=== PATIENT | female | born 1935 | race Caucasian/White ===

== ENCOUNTER 2016-06-26 15:50 | Inpatient (IN) | payer MEDICARE, BC ==
[2016-06-26] MEDS ORDERED: Dextrose 50% Abboject 50 ML SYRINGE SLOW IVP PRN (19:13)
[2016-06-26] MEDS ORDERED: Dextrose 5% in Water 1,000 ML IV PRN (19:13)
[2016-06-26] MEDS: Docusate (Surfak) 240 MG CAP PO SCH (20:16)
[2016-06-26] MEDS: Lisinopril 20 MG TAB PO SCH (20:17)
[2016-06-26] MEDS: Oxybutynin Chloride 5 MG TAB PO SCH (20:17)
[2016-06-26] MEDS: Gabapentin 300 MG CAP PO SCH (20:18)
[2016-06-26] MEDS: Famotidine 20 MG TAB PO SCH (20:18)
[2016-06-26] MEDS: Pravastatin Sodium 20 MG TAB PO SCH (20:18)
[2016-06-26] MEDS: HYDROcodone/Acetaminophen 10/325 mg Tablet PO PRN (20:21)
[2016-06-26] MEDS: Levemir Flexpen 100 UNITS/ML PEN SC SCH (20:22)
[2016-06-27] MEDS: Enoxaparin Sodium 30 MG/0.3 ML SYRINGE SC SCH (05:29)
[2016-06-27 05:46] LABS: Anion Gap 13 mmol/L (10-20); BUN (Urea Nitrogen) 13 mg/dL (9.8-20.1); Calc. Creatinine Clearance 99 mL/min (70-130); Calcium 9.4 mg/dL (7.8-10.44); Carbon Dioxide 31 mmol/L (23-31); Chloride 101 mmol/L (98-107); Estimated GFR-MDRD 72
[2016-06-27 06:39] LABS: Hematocrit 28.3 % (36.0-47.0); Mean Platelet Volume 6.2 fL (7.4-10.4); Red Blood Cell (RBC) Count 3.15 mill/uL (4.20-5.40); White Blood Cell (WBC) Count 6.6 thou/uL (4.8-10.8)
[2016-06-27 06:40] LABS: Neutrophil 57 % (42-75)
[2016-06-27] MEDS: HYDROcodone/Acetaminophen 10/325 mg Tablet PO PRN ×4 (07:20→21:01)
[2016-06-27] MEDS: HumaLOG 300 UNITS/3 ML VIAL SC SCH ×3 (08:00→17:08)
[2016-06-27] MEDS: Levemir Flexpen 100 UNITS/ML PEN SC SCH ×3 (08:00→20:59)
[2016-06-27] MEDS: Docusate (Surfak) 240 MG CAP PO SCH ×2 (09:26→20:58)
[2016-06-27] MEDS: Oxybutynin Chloride 5 MG TAB PO SCH ×3 (09:27→20:58)
[2016-06-27] MEDS: Famotidine 20 MG TAB PO SCH ×2 (09:27→20:58)
[2016-06-27] MEDS: Venlafaxine HCl 25 MG TAB PO SCH (09:28)
[2016-06-27] MEDS: Pravastatin Sodium 20 MG TAB PO SCH (20:58)
[2016-06-27] MEDS: Gabapentin 300 MG CAP PO SCH (20:58)
[2016-06-27] MEDS: Lisinopril 20 MG TAB PO SCH (20:58)
[2016-06-28] MEDS: Enoxaparin Sodium 30 MG/0.3 ML SYRINGE SC SCH (06:14)
[2016-06-28] MEDS: Famotidine 20 MG TAB PO SCH ×2 (08:33→20:31)
[2016-06-28] MEDS: Docusate (Surfak) 240 MG CAP PO SCH ×2 (08:33→20:31)
[2016-06-28] MEDS: Venlafaxine HCl 25 MG TAB PO SCH (08:33)
[2016-06-28] MEDS: HumaLOG 300 UNITS/3 ML VIAL SC SCH ×3 (08:42→16:31)
[2016-06-28] MEDS: Oxybutynin Chloride 5 MG TAB PO SCH ×3 (08:42→20:33)
[2016-06-28] MEDS: HYDROcodone/Acetaminophen 10/325 mg Tablet PO PRN ×2 (09:09→20:33)
--- NOTE | 2016-06-28 11:41 | HP ---
DATE OF ADMISSION: 06/26/2016. HISTORY OF PRESENT ILLNESS: The patient is a 81-year-old white female well known to myself with a l declan history of poorly controlled diabetes with subsequent complications of peripheral neuropathy, di abetic foot ulcer, who was being seen at [facility] by a microarray operations vice president for foot ulcer when she fel l, suffered pain in her left leg, was found to have a distal femur fracture which required open redu ction and internal fixation on 06/21/2016. Postoperatively, she did well and was transferred here o n 06/26/2016 for continued physical therapy. PAST MEDICAL HISTORY: Remarkable for poorly controlled diabetes as mentioned above, recurrent osteo arthritic and degenerative disk changes secondary to her morbid obesity, being followed by Dr. Audra li for pain relief. She also has had multiple orthopedic surgeries with and revision of right tot al hip done in 06/2015 with no complications, done by Dr. Martín Francis. Left shoulder replacement d one by Dr. Martín Francis in 2014 also, with great improvement and returned to her activities of daily living. She has continued to have poor control of her diabetes and other risk factors of hypertens ion, hyperlipidemia, but has had a negative Cardiolite in 2008 and no evidence of coronary artery di sease. PAST SURGICAL HISTORY: Positive also for right total knee, hysterectomy and left total knee. SOCIAL HISTORY: She is a , lives alone, nonsmoker, nondrinker. CURRENT MEDICATIONS: Included Tylenol as needed, aspirin 81 daily, gabapentin 300 nightly, Humalog 10 units subcu three times daily at the hospital with Glargine 40 units nightly, lisinopril 20 mg da monique, oxybutynin 5 three times daily, Protonix 40 daily, MiraLax 17 grams daily, pravastatin 40 daily , venlafaxine 25 daily, amlodipine 5 daily, venlafaxine, she is still continued. REVIEW OF SYSTEMS: At this time shows: HEENT: No headaches or dizziness, change in vision or hearing, hoarseness or dysphagia. PULMONARY: She denied any cough, sputum production, pneumonia, asthma, tuberculosis. CARDIOVASCULAR: Denies chest pain, orthopnea, paroxysmal nocturnal dyspnea or edema. GASTROINTESTINAL: Denies nausea, vomiting, has had some decreased appetite, but no hypoglycemia, no constipation, diarrhea. GENITOURINARY: Denied dysuria, hematuria, nocturia. MUSCULOSKELETAL: She has had recurrent pains in her back, shoulders, knees and also had recent diab etic ulcer on her right foot, which has been greatly improved with Podiatry care at [facility] PHYSICAL EXAMINATION: GENERAL: Shows an elderly obese white female lying in bed, in no acute distress, oriented x3 and co operative. VITAL SIGNS: Her blood pressure is 152/66, O2 saturations 94% on 2 liters, respirations 22, pulse 8 1, temperature 99.4. HEENT: Pupils are equal, round, and react to light and accommodation. Sclerae are anicteric, conju nctiva pale. Oral mucous membranes well hydrated. NECK: Supple. There are no nodes or masses. JVP is not elevated. LUNGS: Clear with decreased breath sounds in the bases. CARDIAC: Showed regular rhythm. No gallops or murmurs. ABDOMEN: Soft and nontender with no masses or organomegaly. SKIN/EXTREMITIES: Showed left leg and a knee immobilizer, minimal erythema at the mobilizer site. Pedal pulses are 2+ and equal. Normal sensation in her foot and right except for the chronic diabet ic nephropathy. NEUROLOGIC: Shows the nephropathy. There is also a healing right plantar ulcer with no evidence of inflammation. Neurological shows a chronic neuropathy in the feet, but cranial nerves intact. Manasa p tendon reflexes 2+ and equal. There are absent Babinskis. LABORATORY DATA: Shows white count 6600, hemoglobin 9, hematocrit 28. Sodium is 141, potassium 4.3 , chloride 101, bicarb 31, BUN 13, creatinine 0.77, glucose 148, calcium 9.4. ASSESSMENT AND PLAN: A 81-year-old white female with insulin-dependent diabetes mellitus with compl ications of diabetic nephropathy and significant degenerative joint disease and disk disease with in stability with fall and suffered a fracture of her left distal femur and is status post open and red uction internal fixation. She has had no complications postoperatively. She was admitted with sign ificant for continued physical therapy and also, deep venous thrombosis and peptic ulcer prophylaxis . She is nonweightbearing at this time and has had no evidence of infection. We will monitor close ly for infection, will be started on nonweightbearing physical therapy until follow up with orthoped ic surgeon in 2 weeks. Her sugars have been well controlled on her regimen of Glargine and Humalog, will be continued on this. We will continue on Accu-Cheks.
[2016-06-28] MEDS: HYDROcodone/Acetaminophen 7.5/325 mg Tablet PO PRN (13:43)
[2016-06-28] MEDS: Gabapentin 300 MG CAP PO SCH (20:31)
[2016-06-28] MEDS: Levemir Flexpen 100 UNITS/ML PEN SC SCH (20:32)
[2016-06-28] MEDS: Lisinopril 20 MG TAB PO SCH (20:32)
[2016-06-28] MEDS: Pravastatin Sodium 20 MG TAB PO SCH (20:33)
[2016-06-29] MEDS: HYDROcodone/Acetaminophen 10/325 mg Tablet PO PRN ×2 (04:56→21:44)
[2016-06-29] MEDS: Enoxaparin Sodium 30 MG/0.3 ML SYRINGE SC SCH (04:57)
--- NOTE | 2016-06-29 06:39 | PRG ---
DATE OF SERVICE: 06/28/2016 SUBJECTIVE: The patient feels well with no complaints except for leg pain, has been cooperating wel l, still having some difficulty with taking deep breaths. No cough, sputum production. OBJECTIVE: Shows O2 sat still 92% on room air, respirations 20, pulse 75, temperature is up to 100. 1, blood pressure 130/72. White count yesterday was 6600. Accu-Cheks have been ranging from 86-180 . Lungs show decreased breath sounds in the bases. Cardiac examination showed regular rhythm. Lef t leg shows edema or persistent tenderness. ASSESSMENT: 1. Resolving left femur fracture, status post intramedullary nailing, new onset of low-grade fever, possibly due to atelectasis. We will get urinalysis and chest x-ray, incentive spirometer, monitor closely. 2. Diabetes with fair control appears to be increasing, may need to increase premeal insulins.
[2016-06-29] MEDS: HumaLOG 300 UNITS/3 ML VIAL SC SCH ×3 (08:14→16:49)
[2016-06-29] MEDS: Venlafaxine HCl 25 MG TAB PO SCH (08:16)
[2016-06-29] MEDS: Famotidine 20 MG TAB PO SCH ×2 (08:16→21:43)
[2016-06-29] MEDS: Oxybutynin Chloride 5 MG TAB PO SCH ×3 (08:16→21:44)
[2016-06-29] MEDS: Docusate (Surfak) 240 MG CAP PO SCH ×2 (08:16→21:43)
--- NOTE | 2016-06-29 08:38 | PRG ---
DATE OF SERVICE: 06/29/2016 SUBJECTIVE: The patient feels well with only complaints of occasional cough. She has been up in th e chair and only complaints of itching in her legs. OBJECTIVE: GENERAL: The left femur medullary pin insertion site appears to be healing well with only bruising. LUNGS: Show good breath sounds with only minimally decreased in the bases. No rales or rhonchi. CARDIAC: Examination shows regular rhythm. GENITOURINARY: Urine appears to be clear in Brown catheter. VITAL SIGNS: Show temperature down to 98.6, blood pressure 130/72, pulse 75, O2 sat 93% on room air . ASSESSMENT AND PLAN: Resolved low-grade fever. Chest x-ray and urinalysis pending probably due to atelectasis. We will stress incentive spirometry. We will treat urinary tract infections if indica olesya. We will stress need to discontinue Brown, but the patient is still unable to transfer and is c oncerned about incontinence and decubitus.
[2016-06-29 09:23] LABS: Bilirubin Negative (Negative); Blood, Urine Negative (Negative); Glucose, Urine (Dipstick) 500 mg/dL (Negative); Ketone, Urine Negative (Negative); Nitrite Negative (Negative); Protein, Urine (Dipstick) Negative (Neg-Trace); Urobilinogen 0.2 mg/dL (0.2-1.0)
--- NOTE | 2016-06-29 09:58 | RAD ---
RADIOGRAPH CHEST 1 VIEW: DATE: 06/29/16. TIME: 8:48 a.m. HISTORY: A 81-year-old female with postoperative atelectasis. FINDINGS: There are no air space densities, pulmonary edema, pneumothorax, or cardiomegaly. The lateral costo phrenic angles are sharp. There is elevation or eventration of the right hemidiaphragm. There are total bilateral glenohumeral joint replacement metallic prostheses. There is no interval change com pared to 05/14/15. IMPRESSION: No acute cardiopulmonary findings. chaparrita Juares POS: ERIKA
[2016-06-29] MEDS: HYDROcodone/Acetaminophen 7.5/325 mg Tablet PO PRN (12:41)
[2016-06-29] MEDS: Ondansetron ODT 4 MG TAB PO PRN ×2 (15:15→21:14)
[2016-06-29] MEDS: Gabapentin 300 MG CAP PO SCH (21:43)
[2016-06-29] MEDS: Levemir Flexpen 100 UNITS/ML PEN SC SCH (21:43)
[2016-06-29] MEDS: Lisinopril 20 MG TAB PO SCH (21:44)
[2016-06-29] MEDS: Pravastatin Sodium 20 MG TAB PO SCH (21:44)
[2016-06-30] MEDS: Enoxaparin Sodium 30 MG/0.3 ML SYRINGE SC SCH (05:16)
[2016-06-30] MEDS: HumaLOG 300 UNITS/3 ML VIAL SC SCH ×3 (07:58→17:01)
[2016-06-30] MEDS: Docusate (Surfak) 240 MG CAP PO SCH ×2 (08:29→21:34)
[2016-06-30] MEDS: HYDROcodone/Acetaminophen 10/325 mg Tablet PO PRN ×2 (08:30→21:33)
[2016-06-30] MEDS: Venlafaxine HCl 25 MG TAB PO SCH (08:30)
[2016-06-30] MEDS: Oxybutynin Chloride 5 MG TAB PO SCH ×3 (08:30→21:34)
[2016-06-30] MEDS: Famotidine 20 MG TAB PO SCH ×2 (08:30→21:34)
[2016-06-30] MEDS: HYDROcodone/Acetaminophen 7.5/325 mg Tablet PO PRN (13:35)
--- NOTE | 2016-06-30 19:09 | PRG ---
DATE OF SERVICE: 06/30/2016 SUBJECTIVE: Ms. Shepard is a 81-year-old white female with a left fractured femur that has been pinn ed. She was transferred to [facility] for physical therapy and occupational therapy . She is being followed by Dr. Ventura. Her sugars have been slightly elevated, so we will contin ue to follow those, maybe need to adjust her medications, just slightly. She has no complaints, states that she is feeling good. She said she is little concerned about her sugars. This morning fasting was 299, before lunch 305, before supper 186. Yesterday, morning was 324. OBJECTIVE: VITAL SIGNS: Revealed blood pressure 143/61, pulse 71-75, respirations 18-20, O2 sat 95%. T-max is 97.3. GENERAL: This is a well-developed, well-nourished, obese white female in no apparent distress at th is time. HEENT: Reveals normocephalic, nontraumatic cranium. Pupils are equally round and reactive. Extrao cular movements intact. Nose and throat are slightly dry. NECK: Supple, without masses, nodes or bruits. LUNGS: Chest is clear to auscultation. No rales, rhonchi or wheezes are heard. No cough is heard. CARDIOVASCULAR: Reveals a regular rate and rhythm without murmurs, gallops or rubs. ABDOMEN: Soft, nontender without organomegaly, normal bowel sounds are noted. GENITOURINARY: Deferred. Brown catheter urine seems clear. EXTREMITIES: Revealed left-sided knee immobilizer, no pain. ASSESSMENT: 1. Left femur medullary pin, fracture seems to be healing well. 2. Low-grade fever. Continue to encourage incentive spirometry. 3. Urinary tract infection. Urinalysis is unremarkable. We will encourage the patient to continue with incentive spirometry. 4. Diabetes, somewhat out of control. We will continue to follow his sugars. 5. Diabetic nephropathy. 6. Degenerative joint disease and disk disease. 7. Hypertension. 8. Urinary urgency. 9. Gastroesophageal reflux disease. 10. Constipation. 11. Hyperlipidemia. 12. Anxiety depressive disorder. PLAN: 1. Continue to follow patient's sugars. If not appropriate, if blood sugars still remain high, we will adjust her insulin. 2. Continue to follow the patient and encourage her do incentive spirometry. 3. Continue physical therapy and occupational therapy. 4. Continue DVT and stress ulcer prophylaxis.
[2016-06-30] MEDS: Pravastatin Sodium 20 MG TAB PO SCH (21:34)
[2016-06-30] MEDS: Gabapentin 300 MG CAP PO SCH (21:34)
[2016-06-30] MEDS: Lisinopril 20 MG TAB PO SCH (21:34)
[2016-06-30] MEDS: Levemir Flexpen 100 UNITS/ML PEN SC SCH (21:34)
[2016-07-01] MEDS: Enoxaparin Sodium 30 MG/0.3 ML SYRINGE SC SCH (05:55)
[2016-07-01] MEDS: HumaLOG 300 UNITS/3 ML VIAL SC SCH ×3 (08:26→17:10)
[2016-07-01] MEDS: Docusate (Surfak) 240 MG CAP PO SCH ×2 (08:27→20:47)
[2016-07-01] MEDS: Oxybutynin Chloride 5 MG TAB PO SCH ×3 (08:27→20:47)
[2016-07-01] MEDS: Famotidine 20 MG TAB PO SCH ×2 (08:27→20:47)
[2016-07-01] MEDS: Venlafaxine HCl 25 MG TAB PO SCH (08:28)
[2016-07-01] MEDS: HYDROcodone/Acetaminophen 7.5/325 mg Tablet PO PRN (10:50)
--- NOTE | 2016-07-01 18:30 | PRG ---
DATE OF SERVICE: 07/01/2016 SUBJECTIVE: Ms. Shepard is a very pleasant 81-year-old white female, unfortunately fell and had a le ft fractured distal femur. She was stabilized and pinned, eventually sent to [facility] for physical therapy and occupational therapy. Patient states she has been very tired today. She is not really hungry. Otherwise, she has no comp laints. OBJECTIVE: VITAL SIGNS: Revealed blood pressure 133/60, pulse 70-72, respirations 16-20, O2 sat 95-96% on 2 li ters, T-max 98.4. GENERAL: This is a well-developed, well-nourished, somewhat obese, pleasant white female in no appa rent distress at this time. HEENT: Reveals normocephalic, nontraumatic cranium. Pupils equal, round, and reactive. Extraocula r movements intact. Nose and throat are slightly dry. NECK: Supple, without masses, nodes or bruits. CHEST: Clear to auscultation, no rales, rhonchi or wheezes, or cough is heard. HEART: Reveals a regular rate and rhythm without murmurs, gallops or rubs. ABDOMEN: Soft, nontender, without organomegaly, normal bowel sounds are noted. No rebound or guard ing is noted. GENITOURINARY: Deferred. Brown catheter is still clear. EXTREMITIES: Revealed left knee immobilizer, but no significant pain in bed. Laboratory today reveals blood sugar this morning fasting was was 215, before lunch 273, before supp er 146. IMPRESSION: 1. Left femur with medullary pin, fracture seems to be healing well. 2. Low-grade fever, continue encourage incentive spirometry. 3. Urinary tract infection, urinalysis is unremarkable. 4. Diabetes, somewhat out of, control slightly better. Continue to follow sugars. 5. Diabetic neuropathy. 6. Degenerative joint disease and disk disease. 7. Hypertension. 8. Urinary urgency. 9. Gastroesophageal reflux. 10. Constipation. 11. Hyperlipidemia. 12. Anxiety depressive disorder. PLAN: 1. Continue to follow patient is Accu-Cheks before meals and at bedtime. 2. Continue to encourage the patient do incentive spirometry at each commercial while she is watchi [employer]. 3. Continue physical therapy and occupational therapy. 4. Continue DVT and stress ulcer prophylaxis. 5. Continue follow up patient's blood pressure. 6. Continue to follow the patient for constipation.
[2016-07-01] MEDS: HYDROcodone/Acetaminophen 10/325 mg Tablet PO PRN (20:45)
[2016-07-01] MEDS: Levemir Flexpen 100 UNITS/ML PEN SC SCH (20:46)
[2016-07-01] MEDS: Lisinopril 20 MG TAB PO SCH (20:47)
[2016-07-01] MEDS: Pravastatin Sodium 20 MG TAB PO SCH (20:47)
[2016-07-01] MEDS: Gabapentin 300 MG CAP PO SCH (20:47)
[2016-07-02] MEDS: Enoxaparin Sodium 30 MG/0.3 ML SYRINGE SC SCH (06:13)
[2016-07-02] MEDS: HumaLOG 300 UNITS/3 ML VIAL SC SCH ×3 (08:00→17:07)
--- NOTE | 2016-07-02 08:11 | PRG ---
DATE OF SERVICE: 07/02/2016. SUBJECTIVE: This patient is a very pleasant 81-year-old white female that unfortunately fell and ching d a left distal femur fracture. She was stabilized and eventually sent to [facility] for physical therapy and occupational therapy. The patient states she slept well last night. She feels much better. She has no complaints this mo rning. OBJECTIVE: VITAL SIGNS: Revealed blood pressure this morning is 143/65, pulse 68-74, respirations 20, O2 saturations 95-96% on 2 liters and T-max is 98.5. PHYSICAL EXAMINATION: GENERAL: This is a well-developed, well-nourished, slightly obese white female, in no apparent dist ress at this time. HEENT: Reveals normocephalic, nontraumatic cranium. Pupils are equally round and reactive. Extrao cular movements intact. Nose and throat are slightly dry. NECK: Supple, without masses, nodes or bruits. LUNGS: Chest is clear to auscultation. No rales, rhonchi or wheezes, or cough is heard. CARDIOVASCULAR: Reveals a regular rate and rhythm without murmurs, gallops or rubs. ABDOMEN: Obese, soft, nontender, without organomegaly. Normal bowel sounds are noted. No rebound or guarding is noted. GENITOURINARY: Deferred. Catheter urine is still clear. EXTREMITIES: Reveal left knee immobilizer, no significant pain while she is in bed. IMPRESSION: 1. Left femur fracture with medullary pin seems to be healing well. 2. Low-grade fever. Continue encourage incentive spirometry. 3. Urinary tract infection. Urinalysis unremarkable. 4. Diabetes, continues to be slightly better. Continue to follow sugars. 5. Diabetic neuropathy. 6. Degenerative joint disease and disk disease. 7. Hypertension. 8. Urinary urgency, much improved. 9. Gastroesophageal reflux, stable. 10. Constipation, stable. 11. Hyperlipidemia. 12. Anxiety depressive disorder. PLAN: 1. Continue to follow the patient Accu-Cheks before and after meals, morning and at bedtime. 2. Continue to encourage the patient to do incentive spirometry multiple times during the day. 3. Continue physical therapy and occupational therapy. 4. Continue deep venous thrombosis and stress ulcer prophylaxes. 5. Continue follow the patient's blood pressure. 6. Continue to follow the patient for constipation.
[2016-07-02] MEDS: HYDROcodone/Acetaminophen 7.5/325 mg Tablet PO PRN ×2 (08:31→14:19)
[2016-07-02] MEDS: Venlafaxine HCl 25 MG TAB PO SCH (08:59)
[2016-07-02] MEDS: Oxybutynin Chloride 5 MG TAB PO SCH ×3 (09:00→21:44)
[2016-07-02] MEDS: Famotidine 20 MG TAB PO SCH ×2 (09:00→21:44)
[2016-07-02] MEDS: Docusate (Surfak) 240 MG CAP PO SCH ×2 (09:00→21:44)
[2016-07-02] MEDS: diphenhydrAMINE HCl 25 MG CAP PO PRN ×2 (09:35→21:44)
[2016-07-02] MEDS: Levemir Flexpen 100 UNITS/ML PEN SC SCH (21:41)
[2016-07-02] MEDS: Pravastatin Sodium 20 MG TAB PO SCH (21:44)
[2016-07-02] MEDS: Gabapentin 300 MG CAP PO SCH (21:44)
[2016-07-02] MEDS: HYDROcodone/Acetaminophen 10/325 mg Tablet PO PRN (21:44)
[2016-07-02] MEDS: Lisinopril 20 MG TAB PO SCH (21:44)
[2016-07-03] MEDS: diphenhydrAMINE HCl 25 MG CAP PO PRN ×3 (03:44→21:23)
[2016-07-03] MEDS: Enoxaparin Sodium 30 MG/0.3 ML SYRINGE SC SCH (05:36)
--- NOTE | 2016-07-03 09:22 | PRG ---
DATE OF SERVICE: 07/03/2016 SUBJECTIVE: The patient lying in bed complaining mainly of diffuse pruritus, no rash and some sweat s, having decreasing soreness in her left leg at the site of the distal femur fracture. OBJECTIVE: Vital signs stable with a blood pressure of 140/66, pulse is 72, respirations 18, O2 sat s 96%, afebrile. Accu-Cheks ranging 136-166 on Humalog 15 units before breakfast and lunch and 10 u nits before supper and Levemir 40 units at night. Urine appears clear. Lungs are clear. Cardiac e xamination shows a regular rhythm. Abdomen is soft and nontender. Left femur incision appears to b e clean and dry and healing. ASSESSMENT: 1. Resolving left distal femur fracture status post open reduction internal fixation. 2. Stable insulin-dependent diabetes mellitus with adequate control. 3. No evidence of atelectasis or urinary tract infection and no further low grade fever. PLAN: 1. Consult with surgeon to see if can remove immobilizer while in bed. 2. Continue transfer only weightbearing on the right leg. 3. Follow up with orthopedic surgeon next week.
[2016-07-03] MEDS: Oxybutynin Chloride 5 MG TAB PO SCH ×3 (09:37→21:23)
[2016-07-03] MEDS: Venlafaxine HCl 25 MG TAB PO SCH (09:37)
[2016-07-03] MEDS: HYDROcodone/Acetaminophen 7.5/325 mg Tablet PO PRN ×2 (09:38→15:06)
[2016-07-03] MEDS: Famotidine 20 MG TAB PO SCH ×2 (09:38→21:23)
[2016-07-03] MEDS: Docusate (Surfak) 240 MG CAP PO SCH ×2 (09:39→21:23)
[2016-07-03] MEDS: HumaLOG 300 UNITS/3 ML VIAL SC SCH ×3 (09:40→17:42)
[2016-07-03] MEDS: Gabapentin 300 MG CAP PO SCH (21:23)
[2016-07-03] MEDS: Pravastatin Sodium 20 MG TAB PO SCH (21:23)
[2016-07-03] MEDS: Lisinopril 20 MG TAB PO SCH (21:24)
[2016-07-03] MEDS: Levemir Flexpen 100 UNITS/ML PEN SC SCH (21:24)
[2016-07-03] MEDS: HYDROcodone/Acetaminophen 10/325 mg Tablet PO PRN (21:24)
[2016-07-04] MEDS: Enoxaparin Sodium 30 MG/0.3 ML SYRINGE SC SCH (06:10)
[2016-07-04] MEDS: HumaLOG 300 UNITS/3 ML VIAL SC SCH ×3 (08:15→16:52)
[2016-07-04] MEDS: Oxybutynin Chloride 5 MG TAB PO SCH ×3 (09:20→21:58)
[2016-07-04] MEDS: diphenhydrAMINE HCl 25 MG CAP PO PRN ×3 (09:21→21:58)
[2016-07-04] MEDS: Venlafaxine HCl 25 MG TAB PO SCH (09:21)
[2016-07-04] MEDS: Famotidine 20 MG TAB PO SCH ×2 (09:21→21:58)
[2016-07-04] MEDS: HYDROcodone/Acetaminophen 7.5/325 mg Tablet PO PRN ×3 (09:21→21:58)
[2016-07-04] MEDS: Docusate (Surfak) 240 MG CAP PO SCH ×2 (09:26→21:58)
[2016-07-04] MEDS ORDERED: diphenhydrAMINE HCl 25 MG CAP ONE (14:10)
[2016-07-04] MEDS ORDERED: HYDROcodone/Acetaminophen 7.5/325 mg Tablet ONE (14:12)
[2016-07-04] MEDS: Lisinopril 20 MG TAB PO SCH (21:58)
[2016-07-04] MEDS: Gabapentin 300 MG CAP PO SCH (21:58)
[2016-07-04] MEDS: Pravastatin Sodium 20 MG TAB PO SCH (21:58)
[2016-07-04] MEDS: Levemir Flexpen 100 UNITS/ML PEN SC SCH (21:59)
[2016-07-05] MEDS: Enoxaparin Sodium 30 MG/0.3 ML SYRINGE SC SCH (06:26)
--- NOTE | 2016-07-05 07:34 | PRG ---
DATE OF SERVICE: 07/04/2016 SUBJECTIVE: The patient feels well with no pain in her leg at rest, decreasing pain with activities . She has been eating well, tolerating diet well with no hypoglycemic episodes. OBJECTIVE: Temperature 98.3, pulse 72, respirations 18, blood pressure 148/67. Accu-Cheks remained stable at 82-196. Lungs are clear. Cardiac examination shows regular rhythm. ASSESSMENT: 1. Resolving left distal femur fracture status post open reduction internal fixation. 2. Stable insulin-dependent diabetes mellitus. PLAN: Continue immobilizer while asleep, but able to take off while awake. Continue weightbearing exercise on the right leg. Follow up with orthopedic surgeon next week.
--- NOTE | 2016-07-05 07:37 | PRG ---
DATE OF SERVICE: 07/05/2016 SUBJECTIVE: The patient feels well. No complaints except did not sleep well through the night, is unsure why. She ate well yesterday. She has had her immobilizer off and is having decreasing sherita ess in her leg. Is concerned that her Accu-Chek this morning was over 200, but did receive snack la st night she did not want. OBJECTIVE: Shows her Accu-Cheks have been ranging from 115-157 until this morning it is at 237. Shannan ngs are clear. Cardiac examination shows regular rhythm. Left leg shows healing incision sites wit h no drainage, minimal ecchymosis and swelling. ASSESSMENT: 1. Resolving left subtrochanteric hip fracture status post intramedullary nailing with follow up [facility] orthopedic surgeon next week. 2. Stable insulin-dependent diabetes mellitus with hyperglycemia this morning secondary to excessiv e snack. 3. Improving deconditioning. PLAN: Continue PT. Continue nonweightbearing. Withhold nighttime snack. Continue insulin as orde red.
[2016-07-05] MEDS: Famotidine 20 MG TAB PO SCH ×2 (09:41→20:52)
[2016-07-05] MEDS: Docusate (Surfak) 240 MG CAP PO SCH ×2 (09:41→20:52)
[2016-07-05] MEDS: Venlafaxine HCl 25 MG TAB PO SCH (09:41)
[2016-07-05] MEDS: Oxybutynin Chloride 5 MG TAB PO SCH ×3 (09:42→20:52)
[2016-07-05] MEDS: HumaLOG 300 UNITS/3 ML VIAL SC SCH ×3 (09:43→18:07)
[2016-07-05] MEDS: HYDROcodone/Acetaminophen 7.5/325 mg Tablet PO PRN (09:45)
[2016-07-05] MEDS: Lisinopril 20 MG TAB PO SCH (20:51)
[2016-07-05] MEDS: HYDROcodone/Acetaminophen 10/325 mg Tablet PO PRN (20:51)
[2016-07-05] MEDS: Gabapentin 300 MG CAP PO SCH (20:51)
[2016-07-05] MEDS: Pravastatin Sodium 20 MG TAB PO SCH (20:52)
[2016-07-05] MEDS: Levemir Flexpen 100 UNITS/ML PEN SC SCH (20:52)
[2016-07-06] MEDS: Polyethylene Glycol 3350 17 GM Packet PO PRN (05:26)
[2016-07-06] MEDS: Enoxaparin Sodium 30 MG/0.3 ML SYRINGE SC SCH (05:26)
[2016-07-06] MEDS: HYDROcodone/Acetaminophen 10/325 mg Tablet PO PRN ×2 (07:45→20:14)
[2016-07-06] MEDS: HumaLOG 300 UNITS/3 ML VIAL SC SCH ×3 (08:14→16:59)
[2016-07-06] MEDS: Venlafaxine HCl 25 MG TAB PO SCH (08:40)
[2016-07-06] MEDS: Oxybutynin Chloride 5 MG TAB PO SCH ×3 (08:40→20:14)
[2016-07-06] MEDS: Docusate (Surfak) 240 MG CAP PO SCH ×2 (08:40→20:13)
[2016-07-06] MEDS: Famotidine 20 MG TAB PO SCH ×2 (08:45→20:14)
--- NOTE | 2016-07-06 08:51 | PRG ---
DATE OF SERVICE: 07/06/2016. SUBJECTIVE: The patient feels worse today, did not sleep well overnight with diffuse aches and pain s, unsure why, states she is constipated at this time also, but has cooperated with therapy. OBJECTIVE: VITAL SIGNS: Blood pressure 148/67, temperature is 98, pulse 80, respirations 22, O2 saturations 93 % on room air. LUNGS: Clear. CARDIAC: Shows regular rhythm. ABDOMEN: Soft and nontender. EXTREMITIES: Left leg shows healing incision site. ASSESSMENT: 1. Resolving left subtrochanteric hip fracture, follow up orthopedic surgeon next week. 2. Stable insulin-dependent diabetes mellitus. 3. Improving deconditioning. PLAN: Continue PT. Continue nonweightbearing. MiraLax today, if no bowel movement.
[2016-07-06] MEDS: diphenhydrAMINE HCl 25 MG CAP PO PRN ×2 (13:09→20:14)
[2016-07-06] MEDS: Gabapentin 300 MG CAP PO SCH (20:14)
[2016-07-06] MEDS: Lisinopril 20 MG TAB PO SCH (20:14)
[2016-07-06] MEDS: Pravastatin Sodium 20 MG TAB PO SCH (20:14)
[2016-07-06] MEDS: Levemir Flexpen 100 UNITS/ML PEN SC SCH (20:15)
[2016-07-07] MEDS: Enoxaparin Sodium 30 MG/0.3 ML SYRINGE SC SCH (05:19)
[2016-07-07] MEDS: HumaLOG 300 UNITS/3 ML VIAL SC SCH ×3 (08:13→16:58)
[2016-07-07] MEDS: HYDROcodone/Acetaminophen 10/325 mg Tablet PO PRN ×2 (08:15→22:07)
[2016-07-07] MEDS: Docusate (Surfak) 240 MG CAP PO SCH ×2 (08:40→21:55)
[2016-07-07] MEDS: Oxybutynin Chloride 5 MG TAB PO SCH ×3 (08:40→21:08)
[2016-07-07] MEDS: Famotidine 20 MG TAB PO SCH ×2 (08:40→21:55)
[2016-07-07] MEDS: Venlafaxine HCl 25 MG TAB PO SCH (08:40)
[2016-07-07] MEDS: HYDROcodone/Acetaminophen 7.5/325 mg Tablet PO PRN (13:14)
[2016-07-07] MEDS: Lisinopril 20 MG TAB PO SCH (21:55)
[2016-07-07] MEDS: Gabapentin 300 MG CAP PO SCH (21:55)
[2016-07-07] MEDS: Levemir Flexpen 100 UNITS/ML PEN SC SCH (21:55)
[2016-07-07] MEDS: Pravastatin Sodium 20 MG TAB PO SCH (21:55)
[2016-07-07] MEDS: diphenhydrAMINE HCl 25 MG CAP PO PRN (22:09)
[2016-07-08] MEDS: Enoxaparin Sodium 30 MG/0.3 ML SYRINGE SC SCH (05:45)
[2016-07-08] MEDS: diphenhydrAMINE HCl 25 MG CAP PO PRN ×2 (08:54→21:08)
[2016-07-08] MEDS: HYDROcodone/Acetaminophen 7.5/325 mg Tablet PO PRN (08:54)
[2016-07-08] MEDS: Docusate (Surfak) 240 MG CAP PO SCH ×3 (08:55→21:26)
[2016-07-08] MEDS: Famotidine 20 MG TAB PO SCH ×2 (08:55→21:09)
[2016-07-08] MEDS: Oxybutynin Chloride 5 MG TAB PO SCH ×3 (08:55→21:11)
[2016-07-08] MEDS: Venlafaxine HCl 25 MG TAB PO SCH (08:55)
[2016-07-08] MEDS: HumaLOG 300 UNITS/3 ML VIAL SC SCH ×3 (08:59→17:06)
[2016-07-08] MEDS: HYDROcodone/Acetaminophen 10/325 mg Tablet PO PRN ×2 (12:48→21:09)
[2016-07-08] MEDS: Acetaminophen 325 MG TAB PO PRN (17:30)
--- NOTE | 2016-07-08 18:03 | PRG ---
DATE OF SERVICE: 07/08/2016 SUBJECTIVE: Ms. Shepard is doing well. Denies any complaints, resting comfortably. She is going to see Orthopedic Surgery again on . She is nonweightbearing for now. She would really like to have her Brown catheter come out. OBJECTIVE: VITAL SIGNS: She is afebrile, heart rate is 79, respiration is 16, blood pressure is 178/77. CARDIOVASCULAR: S1, S2 plus. RESPIRATORY: Normal vesicular breath sounds. ABDOMEN: Soft, obese, nontender, bowel sounds heard in all quadrants. EXTREMITIES: Without cyanosis or clubbing. IMPRESSION: 1. Resolving left subtrochanteric hip fracture. 2. Diabetes mellitus type 2. 3. Deconditioning. 4. Peripheral neuropathy. 5. Hypertension. 6. Dyslipidemia PLAN: 1. Continue physical therapy. 2. Nutritional support. 3. I explained to her that it may be better for her to leave the Brown catheter in until she is abl e to bear weight on it and it will be easier to use a bedside commode, do not want to have any skin breakdown. She is in agreement, 1800 calorie heart healthy diet and routine laboratory values.
[2016-07-08] MEDS: Lisinopril 20 MG TAB PO SCH (21:09)
[2016-07-08] MEDS: Pravastatin Sodium 20 MG TAB PO SCH (21:09)
[2016-07-08] MEDS: Levemir Flexpen 100 UNITS/ML PEN SC SCH (21:12)
[2016-07-08] MEDS: Gabapentin 300 MG CAP PO SCH (21:12)
[2016-07-09] MEDS: Enoxaparin Sodium 30 MG/0.3 ML SYRINGE SC SCH (05:57)
[2016-07-09] MEDS: Docusate (Surfak) 240 MG CAP PO SCH ×2 (08:45→20:30)
[2016-07-09] MEDS: HumaLOG 300 UNITS/3 ML VIAL SC SCH ×3 (08:45→17:24)
[2016-07-09] MEDS: diphenhydrAMINE HCl 25 MG CAP PO PRN ×2 (08:46→20:32)
[2016-07-09] MEDS: Famotidine 20 MG TAB PO SCH ×2 (08:46→20:30)
[2016-07-09] MEDS: Venlafaxine HCl 25 MG TAB PO SCH (08:46)
[2016-07-09] MEDS: Oxybutynin Chloride 5 MG TAB PO SCH ×3 (08:46→20:30)
[2016-07-09] MEDS: HYDROcodone/Acetaminophen 7.5/325 mg Tablet PO PRN ×2 (08:50→13:08)
[2016-07-09] MEDS: Gabapentin 300 MG CAP PO SCH (20:30)
[2016-07-09] MEDS: Pravastatin Sodium 20 MG TAB PO SCH (20:30)
[2016-07-09] MEDS: Levemir Flexpen 100 UNITS/ML PEN SC SCH (20:30)
[2016-07-09] MEDS: Lisinopril 20 MG TAB PO SCH (20:30)
[2016-07-09] MEDS: HYDROcodone/Acetaminophen 10/325 mg Tablet PO PRN (20:32)
[2016-07-10] MEDS: Enoxaparin Sodium 30 MG/0.3 ML SYRINGE SC SCH (06:03)
[2016-07-10] MEDS: HYDROcodone/Acetaminophen 10/325 mg Tablet PO PRN ×2 (08:12→20:22)
[2016-07-10] MEDS: HumaLOG 300 UNITS/3 ML VIAL SC SCH ×3 (08:13→17:19)
[2016-07-10] MEDS: Venlafaxine HCl 25 MG TAB PO SCH (08:15)
[2016-07-10] MEDS: Oxybutynin Chloride 5 MG TAB PO SCH ×3 (08:57→20:21)
[2016-07-10] MEDS: Docusate (Surfak) 240 MG CAP PO SCH ×2 (08:57→20:21)
[2016-07-10] MEDS: Famotidine 20 MG TAB PO SCH ×2 (08:58→20:54)
--- NOTE | 2016-07-10 11:15 | PRG ---
DATE OF SERVICE: 07/10/2016 SUBJECTIVE: The patient is sitting up in a chair visiting with her granddaughter, feels well. No c omplaints except she feels she is getting too many carbs on her diet. She is cooperating with physi rafiq therapy. OBJECTIVE: Physical therapy confirms that the patient is cooperating and is minimal standby assista nce to place on the bed yadav and only 1 person assist to transfer to the bedside commode. The patien t states she has not had any pain during this with only complaint of pain in her arthritic right hip . She does state that she is eating what is on her dietary tray. OBJECTIVE: Blood pressure 147/62, pulse 76, O2 sats 94%, respirations 20. Accu-Cheks show range fr om 146 to 211. Lungs are clear. Cardiac examination shows regular rhythm. Abdomen is soft and non tender. Left leg shows healing open reduction internal fixation laceration of the left distal femur . ASSESSMENT: 1. Healing open reduction internal fixation of distal femur with an appointment with Dr. Block on 07/13/2016. 2. Uncontrolled diabetes. Will discuss with dietitian and change diet per recommendation. 3. Deconditioning, improving with ability to transfer safely to bedside commode, so we will discont inue Brown. PLAN: Discontinue Brown. Change diet per dietary recommendations. Arrange for ambulance transfer to [facility]\ [place] on 07/13/2016.
[2016-07-10] MEDS: HYDROcodone/Acetaminophen 7.5/325 mg Tablet PO PRN (12:16)
[2016-07-10] MEDS: Acetaminophen 325 MG TAB PO PRN (17:20)
[2016-07-10] MEDS: Pravastatin Sodium 20 MG TAB PO SCH (20:20)
[2016-07-10] MEDS: Gabapentin 300 MG CAP PO SCH (20:21)
[2016-07-10] MEDS: Lisinopril 20 MG TAB PO SCH (20:21)
[2016-07-10] MEDS: diphenhydrAMINE HCl 25 MG CAP PO PRN (20:21)
[2016-07-10] MEDS: Levemir Flexpen 100 UNITS/ML PEN SC SCH (20:22)
[2016-07-11] MEDS: Enoxaparin Sodium 30 MG/0.3 ML SYRINGE SC SCH (05:15)
[2016-07-11] MEDS: HumaLOG 300 UNITS/3 ML VIAL SC SCH ×3 (07:51→16:57)
[2016-07-11] MEDS: HYDROcodone/Acetaminophen 10/325 mg Tablet PO PRN (07:52)
[2016-07-11] MEDS: Docusate (Surfak) 240 MG CAP PO SCH ×2 (09:10→22:00)
[2016-07-11] MEDS: Oxybutynin Chloride 5 MG TAB PO SCH ×3 (09:11→22:00)
[2016-07-11] MEDS: Venlafaxine HCl 25 MG TAB PO SCH (09:11)
[2016-07-11] MEDS: Famotidine 20 MG TAB PO SCH ×2 (09:11→22:01)
[2016-07-11] MEDS: HYDROcodone/Acetaminophen 7.5/325 mg Tablet PO PRN (14:20)
--- NOTE | 2016-07-11 14:51 | PRG ---
DATE OF SERVICE: 07/11/2016 SUBJECTIVE: The patient is sitting up in the chair, feels well with some soreness in her leg, but h as been doing her therapy, has been transferred, has been going to the bathroom well with no difficu lty. OBJECTIVE: Shows her blood pressure is 150/70, pulse 81, temperature 96.9, O2 saturation is 95%. L ungs are clear. Cardiac examination shows regular rhythm. Accu-Cheks range from 106 to 232 dependi ng on dietary noncompliance. ASSESSMENT: 1. Resolving left distal femur fracture status post open reduction and internal fixation. 2. Type 2 diabetes, fair control secondary to noncompliance. PLAN: Continue physical therapy, continue to stress compliance to diet, continue same medications o f Levemir 40 units at night, Humalog 10 units at night and 15 units at breakfast and lunch.
[2016-07-11] MEDS: Levemir Flexpen 100 UNITS/ML PEN SC SCH (21:55)
[2016-07-11] MEDS: Lisinopril 20 MG TAB PO SCH (21:59)
[2016-07-11] MEDS: Pravastatin Sodium 20 MG TAB PO SCH (21:59)
[2016-07-11] MEDS: Gabapentin 300 MG CAP PO SCH (21:59)
[2016-07-12] MEDS: Acetaminophen 325 MG TAB PO PRN (00:03)
[2016-07-12] MEDS: Enoxaparin Sodium 30 MG/0.3 ML SYRINGE SC SCH (06:29)
[2016-07-12] MEDS: Docusate (Surfak) 240 MG CAP PO SCH ×2 (08:18→21:04)
[2016-07-12] MEDS: Oxybutynin Chloride 5 MG TAB PO SCH ×3 (08:19→21:05)
[2016-07-12] MEDS: Famotidine 20 MG TAB PO SCH ×2 (08:19→21:04)
[2016-07-12] MEDS: Venlafaxine HCl 25 MG TAB PO SCH (08:19)
[2016-07-12] MEDS: HYDROcodone/Acetaminophen 10/325 mg Tablet PO PRN ×3 (08:20→21:05)
[2016-07-12] MEDS: HumaLOG 300 UNITS/3 ML VIAL SC SCH ×3 (08:20→17:06)
[2016-07-12] MEDS: Pravastatin Sodium 20 MG TAB PO SCH (21:04)
[2016-07-12] MEDS: Lisinopril 20 MG TAB PO SCH (21:04)
[2016-07-12] MEDS: diphenhydrAMINE HCl 25 MG CAP PO PRN (21:05)
[2016-07-12] MEDS: Levemir Flexpen 100 UNITS/ML PEN SC SCH (21:06)
[2016-07-12] MEDS: Gabapentin 300 MG CAP PO SCH (21:06)
[2016-07-13] MEDS: HYDROcodone/Acetaminophen 10/325 mg Tablet PO PRN ×3 (06:08→20:17)
[2016-07-13] MEDS: Enoxaparin Sodium 30 MG/0.3 ML SYRINGE SC SCH (06:08)
[2016-07-13] MEDS: Venlafaxine HCl 25 MG TAB PO SCH (08:19)
[2016-07-13] MEDS: Oxybutynin Chloride 5 MG TAB PO SCH ×3 (08:20→20:17)
[2016-07-13] MEDS: Docusate (Surfak) 240 MG CAP PO SCH ×2 (08:20→20:14)
[2016-07-13] MEDS: Famotidine 20 MG TAB PO SCH ×2 (08:20→20:14)
[2016-07-13] MEDS: HumaLOG 300 UNITS/3 ML VIAL SC SCH ×3 (08:22→17:26)
--- NOTE | 2016-07-13 18:42 | PRG ---
MEDICAL PROGRESS NOTE DATE OF PROCEDURE: 07/13/2016 SUBJECTIVE: The patient feels well, somewhat depressed. She has been seen by orthopedic surgeon an d released to do a nonweightbearing range of motion with brace, but is unable to do any weightbearin g and we discharged home. She has been cleared to remain in the skilled until she is seen by orthop edic surgeon for one month. OBJECTIVE: VITAL SIGNS: Blood pressure is 192/81, temperature is 97, pulse is 83, respirations are 18 and O2 s ats 97%. LUNGS: Clear. CARDIAC: Showed regular rhythm. ABDOMEN: Soft and nontender. EXTREMITIES: The left leg shows no tenderness to palpation, no erythema, warmth off the knee immobi lizer. ASSESSMENT: 1. Resolving left distal femur spiral fracture, status post open reduction and internal fixation, s till nonweightbearing for another month. 2. Labile diabetes with improved control. Accu-Cheks still ranging from 60-169. 3. Stable anxiety and depression about placement in the skilled unit. 4. Severe deconditioning. PLAN: Continue skilled therapy, nonweightbearing; continue stress dietary compliance and Accu-Chek control. Continue lisinopril 20 mg at night, but increase amlodipine to 5 mg daily at night also fo r blood pressure control.
--- NOTE | 2016-07-13 19:15 | PRG ---
DATE OF SERVICE: 07/12/2016 SUBJECTIVE: The patient feels well. No complaints, going to see orthopedic surgeon today to hopefu lly get released for more physical therapy. OBJECTIVE: VITAL SIGNS: Blood pressure is 173/80, temperature 96.9, pulse 83, respirations 20, O2 sats 95%. LUNGS: Clear. CARDIAC: Regular rhythm. ABDOMEN: Soft and nontender. LABORATORY DATA: Accu-Cheks ranging from 171-130. Left leg shows no swelling, tenderness, erythema still in the immobilizer. ASSESSMENT: Resolving closed fracture of left distal femur, type 2 diabetes, insulin-dependent impr nai, but labile control, severe deconditioning, morbid obesity. PLAN: Await recommendation of orthopedic surgeons as well as weightbearing. Continue on weightbear ing therapy. Continue to stress dietary compliance and Accu-Chek control.
[2016-07-13] MEDS: Gabapentin 300 MG CAP PO SCH (20:14)
[2016-07-13] MEDS: Levemir Flexpen 100 UNITS/ML PEN SC SCH (20:15)
[2016-07-13] MEDS: Lisinopril 20 MG TAB PO SCH (20:15)
[2016-07-13] MEDS: Pravastatin Sodium 20 MG TAB PO SCH (20:17)
[2016-07-13] MEDS: diphenhydrAMINE HCl 25 MG CAP PO PRN (20:17)
[2016-07-14 05:27] LABS: Anion Gap 14 mmol/L (10-20); BUN (Urea Nitrogen) 13 mg/dL (9.8-20.1); Calc. Creatinine Clearance 101 mL/min (70-130); Calcium 9.7 mg/dL (7.8-10.44); Carbon Dioxide 27 mmol/L (23-31); Chloride 104 mmol/L (98-107); Estimated GFR-MDRD 73
[2016-07-14] MEDS: Enoxaparin Sodium 30 MG/0.3 ML SYRINGE SC SCH (05:32)
--- NOTE | 2016-07-14 06:47 | PRG ---
DATE OF SERVICE: 07/14/2016 SUBJECTIVE: The patient resting in bed. She states that she feels well with no complaints of pain in her leg despite the change in the weather last night, no shortness of breath, no nausea and vomit ing. No hyperglycemia. She has had no hypotension despite having her blood pressure medicine incre ased last night. Sodium is 140, potassium 4.4, chloride 104, bicarbonate 27, BUN 13, creatinine 0.76, glucose 316, ca lcium 9.7. Hematocrit 28, hemoglobin 9.0, white count 6.6. OBJECTIVE: Blood pressure last night was 166/67, temperature 98, pulse 72, respirations 18, O2 sat 94%. Lungs clear. Cardiac examination shows regular rhythm. Abdomen is soft and nontender. Skin and extremities displayed no edema, clubbing, cyanosis. Neurological is intact. The left leg shows no erythema, warmth or tenderness, healing incision. ASSESSMENT: 1. Healing left distal femur fracture status post open reduction internal fixation. 2. Type 2 diabetes with fair control with Accu-Cheks ranging from 60 to 287, the nurses stated due to noncompliance, but the patient denies. 3. Uncontrolled hypertension, with recent increased amlodipine. PLAN: 1. Will have dietitian talk to the patient about diet. 2. Monitor blood pressure, increased amlodipine at night. 3. Continue same diabetic medicines. 4. Stress increased physical therapy.
[2016-07-14] MEDS: HYDROcodone/Acetaminophen 10/325 mg Tablet PO PRN ×3 (08:58→21:06)
[2016-07-14] MEDS: HumaLOG 300 UNITS/3 ML VIAL SC SCH ×3 (09:00→17:00)
[2016-07-14] MEDS: Venlafaxine HCl 25 MG TAB PO SCH (09:01)
[2016-07-14] MEDS: Famotidine 20 MG TAB PO SCH ×2 (09:01→21:05)
[2016-07-14] MEDS: Oxybutynin Chloride 5 MG TAB PO SCH ×3 (09:02→21:05)
[2016-07-14] MEDS: Docusate (Surfak) 240 MG CAP PO SCH ×2 (09:02→21:05)
[2016-07-14] MEDS: Levemir Flexpen 100 UNITS/ML PEN SC SCH (21:04)
[2016-07-14] MEDS: Pravastatin Sodium 20 MG TAB PO SCH (21:05)
[2016-07-14] MEDS: Gabapentin 300 MG CAP PO SCH (21:05)
[2016-07-14] MEDS: Lisinopril 20 MG TAB PO SCH (21:06)
[2016-07-15 05:28] LABS: Anion Gap 12 mmol/L (10-20); BUN (Urea Nitrogen) 12 mg/dL (9.8-20.1); Calc. Creatinine Clearance 99 mL/min (70-130); Calcium 9.6 mg/dL (7.8-10.44); Carbon Dioxide 28 mmol/L (23-31); Chloride 104 mmol/L (98-107); Estimated GFR-MDRD 72
[2016-07-15] MEDS: Enoxaparin Sodium 30 MG/0.3 ML SYRINGE SC SCH (06:09)
[2016-07-15] MEDS: HumaLOG 300 UNITS/3 ML VIAL SC SCH ×3 (08:00→17:13)
[2016-07-15] MEDS: Docusate (Surfak) 240 MG CAP PO SCH ×2 (09:00→21:00)
[2016-07-15] MEDS: Famotidine 20 MG TAB PO SCH ×2 (09:05→21:00)
[2016-07-15] MEDS: Venlafaxine HCl 25 MG TAB PO SCH (09:05)
[2016-07-15] MEDS: Oxybutynin Chloride 5 MG TAB PO SCH ×3 (09:05→21:00)
[2016-07-15] MEDS: HYDROcodone/Acetaminophen 7.5/325 mg Tablet PO PRN (12:55)
--- NOTE | 2016-07-15 18:04 | PRG ---
DATE OF SERVICE: 07/15/2016 SUBJECTIVE: Ms. Shepard is a 81-year-old white female who had a fractured femur that was repaired an d she was sent to [facility] for physical therapy and occupational therapy. She has no complaints, although her sugars are high. We did address her eating extra snacks to Ms. Sharee crow, her best friend. She has no complaints otherwise. OBJECTIVE: VITAL SIGNS: Revealed blood pressure today was 148/67, pulse 83-85, respirations 18-20, O2 sat 95% on room air and T-max 98.3. GENERAL: This is a well-developed, well-nourished, slightly obese white female, in no apparent dist ress at this time. HEENT: Reveals normocephalic and nontraumatic cranium. Pupils are equally round and reactive. Ext raocular movements are intact. Nose and throat are slightly dry. NECK: Supple, without masses, nodes or bruits. LUNGS: Chest is clear. No rales, rhonchi or wheezes are heard. CARDIOVASCULAR: Reveals a regular rate and rhythm without murmurs, gallops or rubs. ABDOMEN: Obese, soft and nontender, without organomegaly. Normal bowel sounds are noted. No rebou nd or guarding is noted. GENITOURINARY: Deferred. EXTREMITIES: Reveal left knee immobilizer. There is no significant pain while she was in bed. IMPRESSION: 1. Left femur fracture with medullar pin seems to be healing well. 2. Low-grade fever has resolved. 3. Urinary tract infection, resolved. 4. Diabetes. The patient needs to stop snacking on apple pie and cakes that her friends bring her. 5. Diabetic neuropathy. 6. Degenerative joint disease and disk disease. 7. Hypertension. 8. Urinary urgency, much improved. 9. Gastroesophageal reflux, stable. 10. Constipation. 11. Hyperlipidemia. 12. Anxiety-depressive disorder. PLAN: 1. Continue to follow the patient Accu-Cheks and encourage the patient not to snack so much and to eat less carbohydrates. 2. Encouraged the patient to do incentive spirometry. 3. Continue physical therapy and occupational therapy. 4. Continue deep venous thrombosis and stress ulcer prophylaxis. 5. Continue to follow the patient's blood pressure. 6. Continue to follow the patient for constipation.
[2016-07-15] MEDS: HYDROcodone/Acetaminophen 10/325 mg Tablet PO PRN ×2 (18:41→22:28)
[2016-07-15] MEDS: diphenhydrAMINE HCl 25 MG CAP PO PRN (18:42)
[2016-07-15] MEDS: Levemir Flexpen 100 UNITS/ML PEN SC SCH (20:59)
[2016-07-15] MEDS: Pravastatin Sodium 20 MG TAB PO SCH (21:00)
[2016-07-15] MEDS: Gabapentin 300 MG CAP PO SCH (21:00)
[2016-07-15] MEDS: Lisinopril 20 MG TAB PO SCH (21:00)
[2016-07-16] MEDS: Enoxaparin Sodium 30 MG/0.3 ML SYRINGE SC SCH (05:46)
[2016-07-16] MEDS: HYDROcodone/Acetaminophen 10/325 mg Tablet PO PRN ×2 (08:24→20:49)
[2016-07-16] MEDS: HumaLOG 300 UNITS/3 ML VIAL SC SCH ×3 (08:26→17:00)
[2016-07-16] MEDS: Oxybutynin Chloride 5 MG TAB PO SCH ×3 (09:13→20:42)
[2016-07-16] MEDS: Docusate (Surfak) 240 MG CAP PO SCH ×2 (09:13→20:43)
[2016-07-16] MEDS: Famotidine 20 MG TAB PO SCH ×2 (09:13→20:43)
[2016-07-16] MEDS: Venlafaxine HCl 25 MG TAB PO SCH (09:14)
--- NOTE | 2016-07-16 11:48 | PRG ---
DATE OF SERVICE: 07/16/2016 HISTORY OF PRESENT ILLNESS: The patient is a 81-year-old white female, who had fracture femur which was repaired. She has been sent to [facility] for physical therapy and occupationa l therapy. She is still nonweightbearing per her orthopedic surgeon. The patient has no complaints today. We did address her sugars again. Her sugar yesterday morning was 248, before lunch 136, before supper 122, before bedtime 90 and then this morning is 216. Suspe ct that the patient maybe eating lots of snacks and the patient's best friend keeps bringing her pie s, etc., although the patient denies that she is eating any of those things. She is on Levemir 40 at bedtime and she is on Humalog 15 for breakfast, Humalog 15 before lunch, and Humalog 10 before supper. She may need an increase in her evening Humalog or may just try to decre ase her apple pies and snacks that she has. OBJECTIVE: VITAL SIGNS: Today reveal her blood pressure is 152/65, which is little higher than her usual, puls e 71-85, respirations 19-20, O2 sat 94% on room air, T-max is 98.3. GENERAL: This is a well-developed, well-nourished, obese white female, in no apparent distress this morning. HEENT: Reveals normocephalic, nontraumatic cranium. Pupils are equally round and reactive. Nose a nd throat are slightly dry. NECK: Supple, without masses, nodes or bruits. CHEST: Clear. No rales, rhonchi or wheezes are heard. CARDIOVASCULAR: Reveals a regular rate and rhythm without murmurs, gallops or rubs. ABDOMEN: Obese, soft, nontender, without organomegaly. Normal bowel sounds are noted. No rebound or guarding is noted. GENITOURINARY: Deferred. EXTREMITIES: Reveal left knee immobilizer with no significant pain while she is in bed, although donna rebolledo does complain of some back pain today. IMPRESSION: 1. Left femur fracture with medullary pin, seemed to be healing well. Still not weightbearing. 2. Low-grade fever is resolved. 3. Urinary tract infections have resolved. 4. Diabetes. Again address snacking on pies, cakes, and trail mix. 5. Diabetic neuropathy. 6. Degenerative joint disease and disk disease. 7. Hypertension. 8. Gastroesophageal reflux disease, stable. 9. Constipation. 10. Hyperlipidemia. 11. Anxiety depressive disorder. PLAN: 1. Encourage patient to not snack so much. 2. Continue to follow Accu-Cheks a.c. and at bedtime. 3. Encouraged the patient do incentive spirometry. 4. Continue physical therapy and occupational therapy. 5. Continue DVT and stress ulcer prophylaxis. 6. Continue to follow the patient's blood pressure. 7. Continue to follow the patient for constipation.
[2016-07-16] MEDS: HYDROcodone/Acetaminophen 7.5/325 mg Tablet PO PRN (15:32)
[2016-07-16] MEDS: Lisinopril 20 MG TAB PO SCH (20:42)
[2016-07-16] MEDS: diphenhydrAMINE HCl 25 MG CAP PO PRN (20:43)
[2016-07-16] MEDS: Gabapentin 300 MG CAP PO SCH (20:43)
[2016-07-16] MEDS: Pravastatin Sodium 20 MG TAB PO SCH (20:43)
[2016-07-16] MEDS: Levemir Flexpen 100 UNITS/ML PEN SC SCH (20:44)
[2016-07-17] MEDS: Enoxaparin Sodium 30 MG/0.3 ML SYRINGE SC SCH (06:15)
[2016-07-17] MEDS: Docusate (Surfak) 240 MG CAP PO SCH ×2 (08:23→21:17)
[2016-07-17] MEDS: Venlafaxine HCl 25 MG TAB PO SCH (08:23)
[2016-07-17] MEDS: Famotidine 20 MG TAB PO SCH ×2 (08:23→21:16)
[2016-07-17] MEDS: Oxybutynin Chloride 5 MG TAB PO SCH ×3 (08:23→21:16)
[2016-07-17] MEDS: HYDROcodone/Acetaminophen 10/325 mg Tablet PO PRN ×3 (08:24→22:41)
[2016-07-17] MEDS: HumaLOG 300 UNITS/3 ML VIAL SC SCH ×3 (08:24→16:28)
--- NOTE | 2016-07-17 12:53 | PRG ---
DATE OF SERVICE: 07/17/2016 SUBJECTIVE: The patient sitting in a chair eating lunch, feels well with no complaints. She states that she is getting better with increased strength in her right leg and still no weightbearing in t he left leg, but minimal pain. She is stating that she is only eating occasional sugar free snacks and is only eating her diet, but has had episode of hypoglycemia. VITAL SIGNS: Blood pressure 137/63, temperature 97, pulse 79, respirations 18, O2 sats 96%. LUNGS: Clear. CARDIAC: Regular rhythm. ABDOMEN: Obese, nontender. EXTREMITIES: Left leg shows no tenderness to palpation of the incision. Accu-Cheks do range from 238 in the morning, 61 in the lunchtime, to 177 in the afternoon on medicat ions of Levemir 40 units at night and Humalog 15 units in the morning and at lunch. PLAN: Decrease Humalog to 10 units at breakfast and supper and 15 units at lunch. Continue Levemir 40 units subcutaneously nightly. Continue to stress only diet on dietary tray. Continue Accu-Chek s, continue physical therapy and occupational therapy.
[2016-07-17] MEDS: HYDROcodone/Acetaminophen 7.5/325 mg Tablet PO PRN (13:21)
[2016-07-17] MEDS: Levemir Flexpen 100 UNITS/ML PEN SC SCH (21:15)
[2016-07-17] MEDS: Gabapentin 300 MG CAP PO SCH (21:16)
[2016-07-17] MEDS: Pravastatin Sodium 20 MG TAB PO SCH (21:16)
[2016-07-17] MEDS: diphenhydrAMINE HCl 25 MG CAP PO PRN (21:17)
[2016-07-17] MEDS: Lisinopril 20 MG TAB PO SCH (21:17)
[2016-07-18] MEDS: Enoxaparin Sodium 30 MG/0.3 ML SYRINGE SC SCH (06:09)
[2016-07-18] MEDS: Famotidine 20 MG TAB PO SCH ×2 (08:21→21:07)
[2016-07-18] MEDS: Oxybutynin Chloride 5 MG TAB PO SCH ×3 (08:21→21:08)
[2016-07-18] MEDS: Venlafaxine HCl 25 MG TAB PO SCH (08:21)
[2016-07-18] MEDS: Docusate (Surfak) 240 MG CAP PO SCH ×2 (08:21→21:07)
[2016-07-18] MEDS: HumaLOG 300 UNITS/3 ML VIAL SC SCH ×3 (08:21→17:04)
[2016-07-18] MEDS: HYDROcodone/Acetaminophen 10/325 mg Tablet PO PRN ×2 (13:12→21:08)
[2016-07-18] MEDS: Lisinopril 20 MG TAB PO SCH (21:07)
[2016-07-18] MEDS: Gabapentin 300 MG CAP PO SCH (21:07)
[2016-07-18] MEDS: Levemir Flexpen 100 UNITS/ML PEN SC SCH (21:07)
[2016-07-18] MEDS: Pravastatin Sodium 20 MG TAB PO SCH (21:08)
[2016-07-18] MEDS: diphenhydrAMINE HCl 25 MG CAP PO PRN (21:08)
[2016-07-19] MEDS: Enoxaparin Sodium 30 MG/0.3 ML SYRINGE SC SCH (06:23)
[2016-07-19] MEDS: HumaLOG 300 UNITS/3 ML VIAL SC SCH ×3 (08:28→16:59)
[2016-07-19] MEDS: Docusate (Surfak) 240 MG CAP PO SCH ×2 (08:33→21:03)
[2016-07-19] MEDS: Oxybutynin Chloride 5 MG TAB PO SCH ×3 (08:33→21:01)
[2016-07-19] MEDS: Famotidine 20 MG TAB PO SCH ×2 (08:34→21:01)
[2016-07-19] MEDS: Venlafaxine HCl 25 MG TAB PO SCH (08:34)
[2016-07-19] MEDS: HYDROcodone/Acetaminophen 10/325 mg Tablet PO PRN ×3 (08:34→21:01)
[2016-07-19 17:18] LABS: Bilirubin Negative (Negative); Blood, Urine Moderate (Negative); Glucose, Urine (Dipstick) 100 mg/dL (Negative); Ketone, Urine Negative (Negative); Nitrite Positive (Negative); Protein, Urine (Dipstick) 30 mg/dL (Neg-Trace); Urobilinogen 0.2 mg/dL (0.2-1.0)
--- NOTE | 2016-07-19 17:37 | PRG ---
DATE OF SERVICE: 07/19/2016 SUBJECTIVE: The patient feels well except for new onset of dysuria, frequency, and increasing pain in the right knee secondary to increased weightbearing. Has been eating better with no hypo or hype rglycemia. OBJECTIVE: Shows blood pressure 149/69, pulse 65, respirations 20, O2 sats 94% Laboratory show Accu-Cheks range 139-186. Lungs are clear. Cardiac examination shows regular rhyth m. Urinalysis is pending. ASSESSMENT: 1. Probable onset of urinary tract infection secondary to Brown catheter. We will await results of culture. 2. Improved diabetic control secondary to increase compliance. 3. Increase pain in the right knee most likely due to increased weightbearing secondary to nonweigh tbearing of the left leg. PLAN: Continue to monitor physical therapy safety with nonweightbearing exercises. Await results o f the urinalysis to start on antibiotics for urinary tract infection.
[2016-07-19 17:46] LABS: Bacteria/HPF 4+ HPF (None Seen); WBC/HPF 21-50 HPF (0-3)
--- NOTE | 2016-07-19 18:57 | PRG ---
DATE OF SERVICE: 07/18/2016 SUBJECTIVE: The patient feels well. No complaints. Cooperating well with therapy, having increasi ng weightbearing on the right leg and transferring with assistance. OBJECTIVE: VITAL SIGNS: Temperature 98, pulse 82, respirations 20, O2 sats 94%, blood pressure 149/69. Accu-C heks show checks range from 96-151. LUNGS: Clear. CARDIAC: Regular rhythm. ABDOMEN: Soft and nontender. ASSESSMENT: Resolving left distal femur fracture, status post open reduction and internal fixation, stable diabetes on increased dietary compliance, improving deconditioning with increasing transfers . PLAN: Continue PT. Continue to monitor Accu-Cheks.
[2016-07-19] MEDS: diphenhydrAMINE HCl 25 MG CAP PO PRN (21:01)
[2016-07-19] MEDS: Lisinopril 20 MG TAB PO SCH (21:02)
[2016-07-19] MEDS: Pravastatin Sodium 20 MG TAB PO SCH (21:02)
[2016-07-19] MEDS: Gabapentin 300 MG CAP PO SCH (21:02)
[2016-07-19] MEDS: Sulfameth/Trimethoprim DS 800-160mg TAB PO SCH (21:03)
[2016-07-19] MEDS: Levemir Flexpen 100 UNITS/ML PEN SC SCH (21:03)
[2016-07-20] MEDS: Enoxaparin Sodium 30 MG/0.3 ML SYRINGE SC SCH (06:05)
[2016-07-20] MEDS: HumaLOG 300 UNITS/3 ML VIAL SC SCH ×3 (07:30→16:45)
[2016-07-20] MEDS: HYDROcodone/Acetaminophen 7.5/325 mg Tablet PO PRN ×2 (07:53→14:27)
[2016-07-20] MEDS: Venlafaxine HCl 25 MG TAB PO SCH (08:49)
[2016-07-20] MEDS: Oxybutynin Chloride 5 MG TAB PO SCH ×3 (08:50→20:57)
[2016-07-20] MEDS: Sulfameth/Trimethoprim DS 800-160mg TAB PO SCH ×2 (08:50→20:57)
[2016-07-20] MEDS: Famotidine 20 MG TAB PO SCH ×2 (08:50→20:57)
[2016-07-20] MEDS: Docusate (Surfak) 240 MG CAP PO SCH ×2 (08:51→20:58)
[2016-07-20] MEDS: Pravastatin Sodium 20 MG TAB PO SCH (20:56)
[2016-07-20] MEDS: Gabapentin 300 MG CAP PO SCH (20:57)
[2016-07-20] MEDS: Lisinopril 20 MG TAB PO SCH (20:57)
[2016-07-20] MEDS: HYDROcodone/Acetaminophen 10/325 mg Tablet PO PRN (20:57)
[2016-07-20] MEDS: diphenhydrAMINE HCl 25 MG CAP PO PRN (20:57)
[2016-07-20] MEDS: Levemir Flexpen 100 UNITS/ML PEN SC SCH (20:58)
[2016-07-21] MEDS: Enoxaparin Sodium 30 MG/0.3 ML SYRINGE SC SCH (05:34)
[2016-07-21] MEDS: HumaLOG 300 UNITS/3 ML VIAL SC SCH ×3 (07:45→16:23)
[2016-07-21] MEDS: HYDROcodone/Acetaminophen 7.5/325 mg Tablet PO PRN ×2 (07:54→14:10)
[2016-07-21] MEDS: Oxybutynin Chloride 5 MG TAB PO SCH ×3 (09:04→20:42)
[2016-07-21] MEDS: Venlafaxine HCl 25 MG TAB PO SCH (09:04)
[2016-07-21] MEDS: Famotidine 20 MG TAB PO SCH ×2 (09:04→20:40)
[2016-07-21] MEDS: Sulfameth/Trimethoprim DS 800-160mg TAB PO SCH ×2 (09:04→20:42)
[2016-07-21] MEDS: Docusate (Surfak) 240 MG CAP PO SCH ×2 (09:04→20:40)
[2016-07-21] MEDS: Polyethylene Glycol 3350 17 GM Packet PO PRN (14:10)
[2016-07-21] MEDS: Levemir Flexpen 100 UNITS/ML PEN SC SCH (20:40)
[2016-07-21] MEDS: Gabapentin 300 MG CAP PO SCH (20:40)
[2016-07-21] MEDS: Lisinopril 20 MG TAB PO SCH (20:41)
[2016-07-21] MEDS: Pravastatin Sodium 20 MG TAB PO SCH (20:42)
[2016-07-21] MEDS: HYDROcodone/Acetaminophen 10/325 mg Tablet PO PRN (20:42)
[2016-07-22] MEDS: Enoxaparin Sodium 30 MG/0.3 ML SYRINGE SC SCH (05:45)
[2016-07-22] MEDS: Venlafaxine HCl 25 MG TAB PO SCH (08:05)
[2016-07-22] MEDS: Docusate (Surfak) 240 MG CAP PO SCH ×2 (08:05→21:51)
[2016-07-22] MEDS: Famotidine 20 MG TAB PO SCH ×2 (08:06→21:53)
[2016-07-22] MEDS: Oxybutynin Chloride 5 MG TAB PO SCH ×3 (08:06→21:53)
[2016-07-22] MEDS: Sulfameth/Trimethoprim DS 800-160mg TAB PO SCH ×2 (08:06→21:53)
[2016-07-22] MEDS: HYDROcodone/Acetaminophen 10/325 mg Tablet PO PRN ×3 (08:09→21:52)
[2016-07-22] MEDS: HumaLOG 300 UNITS/3 ML VIAL SC SCH ×3 (08:09→17:20)
--- NOTE | 2016-07-22 09:07 | PRG ---
DATE OF ADMISSION: 06/26/2016 DATE OF SERVICE: 07/22/2016 HISTORY OF PRESENT ILLNESS: Ms. Shepard is a very pleasant 81-year-old white female with a fractured femur. She was sent to [facility] postoperatively for physical therapy and occupat ional therapy. She is still nonweightbearing, but transfers per her orthopedic surgeon. Patient complains of some constipation. She states MiraLax usually works well, but has worked since yesterday. We did talk about her sugars again today and are much improved from what it was last we ek. Sugars this morning reveals blood sugar 181, yesterday morning fasting 188, before lunch 199, before supper, none of those are in the 200s. Her sugars this morning is still pending. Patient also has urinary tract infection and is growing Klebsiella pneumoniae, still awaiting cultur e and sensitivities per Dr. Ventura request. PHYSICAL EXAMINATION: VITAL SIGNS: Revealed blood pressure is 140/57, pulse 77 to 86, respirations 18-20, O2 saturation 9 3-95% on physical exam, temperature is 97.4. PHYSICAL EXAMINATION: GENERAL: This is a well-developed, well-nourished, somewhat obese white female in no apparent distr ess at this time. HEENT: Reveals normocephalic, nontraumatic cranium. Pupils are equal, round, and reactive. Extrao cular movements are intact. Nose and throat are slightly dry. NECK: Supple, without masses, nodes or bruits. CHEST: Clear to auscultation. No rales, rhonchi or wheezes are heard. CARDIOVASCULAR: Reveals a regular rate and rhythm without murmurs, gallops or rubs. ABDOMEN: Obese, soft, nontender, without organomegaly. Normal bowel sounds are noted. No rebound or guarding is noted. GENITOURINARY: Deferred. EXTREMITIES: Revealed no clubbing, cyanosis, or edema. The patient's knee immobilizer is still in place at times. She has no significant complaints. IMPRESSION: 1. Left femur fracture with medullary pin seemed to be healing well. 2. Urinary tract infections growing Klebsiella pneumoniae, sensitivities pending. 3. Diabetes, much improved. 4. Diabetic neuropathy. 5. Degenerative joint disease and disk disease. 6. Hypertension. 7. Gastroesophageal reflux, stable. 8. Constipated. 9. Hyperlipidemia. 10. Anxiety-depressive disorder. PLAN: 1. Will order some Milk of Magnesia for the patient today. 2. Continue to encourage patient not to snack. 3. Continue to follow Accu-Cheks a.c. and at bedtime. 4. Continue to encourage patient to use incentive spirometry. 5. Continue physical therapy and occupational therapy. 6. Continue DVT and stress ulcer prophylaxis. 7. Continue to follow the patient's blood pressures. 8. Continue decubitus precautions.
[2016-07-22] MEDS: Milk Of Magnesia 30 ML UDCUP PO PRN (17:17)
[2016-07-22] MEDS: Ondansetron ODT 4 MG TAB PO PRN (21:51)
[2016-07-22] MEDS: diphenhydrAMINE HCl 25 MG CAP PO PRN (21:53)
[2016-07-22] MEDS: Pravastatin Sodium 20 MG TAB PO SCH (21:53)
[2016-07-22] MEDS: Gabapentin 300 MG CAP PO SCH (21:53)
[2016-07-22] MEDS: Lisinopril 20 MG TAB PO SCH (21:53)
[2016-07-22] MEDS: Levemir Flexpen 100 UNITS/ML PEN SC SCH (21:54)
[2016-07-23] MEDS: Enoxaparin Sodium 30 MG/0.3 ML SYRINGE SC SCH (06:01)
[2016-07-23] MEDS: HumaLOG 300 UNITS/3 ML VIAL SC SCH ×3 (08:02→16:33)
[2016-07-23] MEDS: Venlafaxine HCl 25 MG TAB PO SCH (08:08)
[2016-07-23] MEDS: Polyethylene Glycol 3350 17 GM Packet PO PRN (08:08)
[2016-07-23] MEDS: Docusate (Surfak) 240 MG CAP PO SCH ×2 (08:08→20:33)
[2016-07-23] MEDS: Oxybutynin Chloride 5 MG TAB PO SCH ×3 (08:08→20:34)
[2016-07-23] MEDS: Sulfameth/Trimethoprim DS 800-160mg TAB PO SCH ×2 (08:08→20:33)
[2016-07-23] MEDS: Famotidine 20 MG TAB PO SCH ×2 (08:08→20:34)
[2016-07-23] MEDS: HYDROcodone/Acetaminophen 10/325 mg Tablet PO PRN ×2 (08:15→20:33)
--- NOTE | 2016-07-23 13:50 | PRG ---
DATE OF SERVICE: 07/23/2016 DATE OF PROGRESS NOTE: 06/26/2016 HISTORY OF PRESENT ILLNESS: Ms. Shepard is a pleasant 81-year-old white female with a fractured femu r, thus sent to [facility] postoperatively for physical therapy and occupational therapy. She is st ill nonweightbearing, but transfers per her orthopedic surgeon with . The patient has no compl aints today of constipation. The patient is growing Enterobacter cloacae, which is sensitive to Bactrim, which was started on for a full [address] Ventura. Vital signs are not in from this morning yet, but her blood pressure last night was 147/93, pulse 77 to 81, respirations 18 to 20, O2 sat 93% to 94%. T-max 97.4. Laboratories reveal blood sugars yes terday revealed a fasting yesterday 181, before lunch 122, before supper 94, before bedtime 178 and this morning 188. PHYSICAL EXAMINATION: GENERAL: This is a well-developed, well-nourished, obese white female in no apparent distress at th is time. HEENT: Reveals normocephalic, nontraumatic cranium. Pupils are equally round and reactive. Extrao cular movements intact. Nose and throat are slightly dry. NECK: Supple, without masses, nodes or bruits. CHEST: Clear to auscultation. No rales, rhonchi or wheezes are heard. CARDIOVASCULAR: Reveals a regular rate and rhythm without murmurs, gallops or rubs. ABDOMEN: Obese, soft, nontender, without organomegaly, normal bowel sounds are noted. No rebound o r guarding is noted. GENITORURINARY: Deferred. EXTREMITIES: Reveal no clubbing, cyanosis or edema. Patient's knee immobilizer still in place. Shen baldwin has no significant complaints. IMPRESSION: 1. Left femur fracture with medullary pins, seems to be healing well. 2. Urinary tract infection growing Enterobacter cloacae sensitive to Bactrim, which she has been on since 07/19/2016. 3. Diabetes, much improved. 4. Diabetic neuropathy. 5. Degenerative joint disease and disk disease. 6. Hypertension. 7. Gastroesophageal reflux. 8. Constipation. 9. Hyperlipidemia. 10. Anxiety depressive disorder. PLAN: 1. The patient will get her Milk of Magnesia p.r.n. 2. Encourage the patient not to snack. 3. Continue to follow Accu-Cheks in the morning and at bedtime. 4. Continue to encourage patient to use incentive spirometry. 5. Continue physical therapy and occupational therapy. 6. Continue deep venous thrombosis and stress ulcer prophylaxis. 7. Continue to follow the patient's blood pressure closely. 8. Decubitus precautions.
[2016-07-23] MEDS: Pravastatin Sodium 20 MG TAB PO SCH (20:33)
[2016-07-23] MEDS: Gabapentin 300 MG CAP PO SCH (20:34)
[2016-07-23] MEDS: Lisinopril 20 MG TAB PO SCH (20:34)
[2016-07-23] MEDS: Levemir Flexpen 100 UNITS/ML PEN SC SCH (20:34)
[2016-07-23] MEDS: diphenhydrAMINE HCl 25 MG CAP PO PRN (20:34)
[2016-07-24] MEDS: Enoxaparin Sodium 30 MG/0.3 ML SYRINGE SC SCH (05:58)
[2016-07-24] MEDS: HumaLOG 300 UNITS/3 ML VIAL SC SCH ×3 (07:30→17:30)
[2016-07-24] MEDS: HYDROcodone/Acetaminophen 7.5/325 mg Tablet PO PRN ×3 (08:27→20:13)
[2016-07-24] MEDS: Venlafaxine HCl 25 MG TAB PO SCH (08:36)
[2016-07-24] MEDS: Sulfameth/Trimethoprim DS 800-160mg TAB PO SCH ×2 (08:36→20:12)
[2016-07-24] MEDS: Famotidine 20 MG TAB PO SCH ×2 (08:36→20:12)
[2016-07-24] MEDS: Docusate (Surfak) 240 MG CAP PO SCH ×2 (08:36→20:12)
[2016-07-24] MEDS: Oxybutynin Chloride 5 MG TAB PO SCH ×3 (08:36→20:12)
[2016-07-24] MEDS ORDERED: Nystatin Cream 30 GM TUBE TOP SCH (09:00)
--- NOTE | 2016-07-24 09:21 | PRG ---
DATE OF SERVICE: 07/24/2016 SUBJECTIVE: The patient feels well, up in the bathroom. She is to work with therapy and having no complaints. Has been compliant with diet. OBJECTIVE: Blood pressure 127/57, pulse 75, temperature 97.9, respirations 18, O2 sats 95% on room air. Lungs clear. Cardiac examination shows regular rhythm. Left foot shows dry callus formation with drainage. Nurse states that there is perineal irritation, possibly due to monilia. Accu-Cheks revealed improved control, ranging from 97-182. ASSESSMENT: 1. Resolving left femur spiral fracture status post open reduction internal fixation on nonweightbe aring with brace in place, undergoing physical and occupational therapy. 2. Type 2 diabetes, insulin-dependent. Improved control secondary to improved compliance to diet. 3. Monilial vaginitis, will start on nystatin cream. 4. Healing diabetic ulcer on the left foot.
[2016-07-24] MEDS: Nystatin Cream 15 GM TUBE TOP SCH ×2 (14:15→20:14)
[2016-07-24] MEDS: Polyethylene Glycol 3350 17 GM Packet PO PRN (17:17)
[2016-07-24] MEDS: Lisinopril 20 MG TAB PO SCH (20:13)
[2016-07-24] MEDS: Gabapentin 300 MG CAP PO SCH (20:13)
[2016-07-24] MEDS: Levemir Flexpen 100 UNITS/ML PEN SC SCH (20:23)
[2016-07-24] MEDS: Pravastatin Sodium 20 MG TAB PO SCH (20:23)
[2016-07-25] MEDS: Enoxaparin Sodium 30 MG/0.3 ML SYRINGE SC SCH (05:39)
[2016-07-25] MEDS: HumaLOG 300 UNITS/3 ML VIAL SC SCH ×3 (07:30→16:25)
[2016-07-25] MEDS: HYDROcodone/Acetaminophen 7.5/325 mg Tablet PO PRN ×2 (08:32→15:35)
[2016-07-25] MEDS: Oxybutynin Chloride 5 MG TAB PO SCH ×3 (08:33→20:39)
[2016-07-25] MEDS: Famotidine 20 MG TAB PO SCH ×2 (08:33→20:40)
[2016-07-25] MEDS: Sulfameth/Trimethoprim DS 800-160mg TAB PO SCH ×2 (08:34→20:39)
[2016-07-25] MEDS: Docusate (Surfak) 240 MG CAP PO SCH ×2 (08:34→20:39)
[2016-07-25] MEDS: Milk Of Magnesia 30 ML UDCUP PO PRN (08:36)
[2016-07-25] MEDS: Venlafaxine HCl 25 MG TAB PO SCH (08:50)
[2016-07-25] MEDS: Nystatin Cream 15 GM TUBE TOP SCH ×3 (08:50→21:05)
[2016-07-25] MEDS ORDERED: Magnesium Citrate 300 ML BOT PO SCH ×2 (17:00→20:15)
--- NOTE | 2016-07-25 18:30 | PRG ---
DATE OF SERVICE: 07/25/2016 SUBJECTIVE: The patient feels well with only complaints of recurrent indigestion and persistent con stipation despite taking Protonix 40 mg daily and Pepcid 20 twice daily. She is also on MiraLax 17 grams daily. OBJECTIVE: VITAL SIGNS: Blood pressure is 147/67, pulse is 83, temperature 98.4, O2 sats 99%. Accu-Cheks rang e from 130-240. LUNGS: Clear. CARDIAC: Showed regular rhythm. ABDOMEN: Soft and nontender. EXTREMITIES: Left knee shows minimal tenderness. ASSESSMENT: 1. Resolving left distal femur fracture status post open reduction and internal fixation. 2. Persistent constipation with no bowel movement in 5 days despite MiraLax. 3. Type 2 diabetes with labile control, now elevated today, possibly due to constipation. 4. Recurrent reflux symptoms possibly due to constipation, is on maximum dose of PPI and H2 ethan . PLAN: Mag citrate one bottle now tonight. Monitor for improvement of symptoms of constipation and reflux.
[2016-07-25] MEDS: Levemir Flexpen 100 UNITS/ML PEN SC SCH (20:38)
[2016-07-25] MEDS: Gabapentin 300 MG CAP PO SCH (20:39)
[2016-07-25] MEDS: Pravastatin Sodium 20 MG TAB PO SCH (20:39)
[2016-07-25] MEDS: diphenhydrAMINE HCl 25 MG CAP PO PRN (20:40)
[2016-07-25] MEDS: Lisinopril 20 MG TAB PO SCH (20:40)
[2016-07-25] MEDS: HYDROcodone/Acetaminophen 10/325 mg Tablet PO PRN (20:40)
[2016-07-26] MEDS: Enoxaparin Sodium 30 MG/0.3 ML SYRINGE SC SCH (05:22)
[2016-07-26] MEDS: HumaLOG 300 UNITS/3 ML VIAL SC SCH ×3 (07:23→17:13)
[2016-07-26] MEDS: Famotidine 20 MG TAB PO SCH ×2 (09:24→21:08)
[2016-07-26] MEDS: Docusate (Surfak) 240 MG CAP PO SCH ×2 (09:24→21:08)
[2016-07-26] MEDS: Oxybutynin Chloride 5 MG TAB PO SCH ×3 (09:24→21:08)
[2016-07-26] MEDS: Venlafaxine HCl 25 MG TAB PO SCH (09:24)
[2016-07-26] MEDS: Sulfameth/Trimethoprim DS 800-160mg TAB PO SCH (09:25)
[2016-07-26] MEDS: Nystatin Cream 15 GM TUBE TOP SCH ×3 (09:25→21:07)
[2016-07-26] MEDS: HYDROcodone/Acetaminophen 7.5/325 mg Tablet PO PRN (11:53)
[2016-07-26] MEDS ORDERED: HYDROcodone/Acetaminophen 7.5/325 mg Tablet PO PRN (21:05)
[2016-07-26] MEDS ORDERED: HYDROcodone/Acetaminophen 10/325 mg Tablet PO PRN (21:05)
[2016-07-26] MEDS: Pravastatin Sodium 20 MG TAB PO SCH (21:08)
[2016-07-26] MEDS: Lisinopril 20 MG TAB PO SCH (21:08)
[2016-07-26] MEDS: Gabapentin 300 MG CAP PO SCH (21:08)
[2016-07-26] MEDS: diphenhydrAMINE HCl 25 MG CAP PO PRN (21:08)
[2016-07-26] MEDS: Levemir Flexpen 100 UNITS/ML PEN SC SCH (21:09)
[2016-07-26] MEDS: Polyethylene Glycol 3350 17 GM Packet PO PRN (21:14)
[2016-07-27] MEDS: Enoxaparin Sodium 30 MG/0.3 ML SYRINGE SC SCH (05:53)
[2016-07-27] MEDS: HumaLOG 300 UNITS/3 ML VIAL SC SCH ×3 (08:18→16:41)
[2016-07-27] MEDS: Venlafaxine HCl 25 MG TAB PO SCH (08:19)
[2016-07-27] MEDS: Oxybutynin Chloride 5 MG TAB PO SCH ×3 (08:20→21:41)
[2016-07-27] MEDS: Nystatin Cream 15 GM TUBE TOP SCH ×3 (08:20→21:43)
[2016-07-27] MEDS: Famotidine 20 MG TAB PO SCH ×2 (08:20→21:41)
[2016-07-27] MEDS: Docusate (Surfak) 240 MG CAP PO SCH ×2 (08:20→21:41)
[2016-07-27] MEDS: HYDROcodone/Acetaminophen 7.5/325 mg Tablet PO PRN (21:40)
[2016-07-27] MEDS: Pravastatin Sodium 20 MG TAB PO SCH (21:41)
[2016-07-27] MEDS: diphenhydrAMINE HCl 25 MG CAP PO PRN (21:41)
[2016-07-27] MEDS: Lisinopril 20 MG TAB PO SCH (21:42)
[2016-07-27] MEDS: Levemir Flexpen 100 UNITS/ML PEN SC SCH (21:42)
[2016-07-27] MEDS: Gabapentin 300 MG CAP PO SCH (21:43)
[2016-07-28] MEDS: Enoxaparin Sodium 30 MG/0.3 ML SYRINGE SC SCH (05:54)
[2016-07-28] MEDS: HumaLOG 300 UNITS/3 ML VIAL SC SCH ×3 (07:45→16:29)
[2016-07-28] MEDS: Famotidine 20 MG TAB PO SCH ×2 (08:46→21:40)
[2016-07-28] MEDS: Venlafaxine HCl 25 MG TAB PO SCH (08:46)
[2016-07-28] MEDS: Oxybutynin Chloride 5 MG TAB PO SCH ×3 (08:46→21:41)
[2016-07-28] MEDS: Nystatin Cream 15 GM TUBE TOP SCH ×3 (08:47→21:49)
[2016-07-28] MEDS: Docusate (Surfak) 240 MG CAP PO SCH ×2 (08:47→21:40)
[2016-07-28] MEDS: HYDROcodone/Acetaminophen 10/325 mg Tablet PO PRN ×2 (08:50→16:24)
--- NOTE | 2016-07-28 17:59 | PRG ---
DATE OF SERVICE: 07/28/2016 SUBJECTIVE: The patient feels well, cooperating with therapy with no complaints of shortness of genet ath, chest pain, orthopnea, paroxysmal nocturnal dyspnea, and is standing on her right leg is bearin g weight. She is nonweightbearing on her left leg, but is having no pain on exercise using the bed. OBJECTIVE: VITAL SIGNS: Shows blood pressure 150/70, pulse 79, O2 sats 93%, temperature 96.5. Accu-Cheks show 134-182. LUNGS: Clear. CARDIAC: Examination shows regular rhythm. ASSESSMENT: 1. Resolving left femoral fracture, status post open reduction and internal fixation. 2. Stable type 2 diabetes with fair control. 3. Improving deconditioning. PLAN: Continue physical therapy. Continue to monitor Accu-Cheks. Continue DVT and stress ulcer pr ophylaxis.
[2016-07-28] MEDS: Gabapentin 300 MG CAP PO SCH (21:40)
[2016-07-28] MEDS: diphenhydrAMINE HCl 25 MG CAP PO PRN (21:40)
[2016-07-28] MEDS: Lisinopril 20 MG TAB PO SCH (21:40)
[2016-07-28] MEDS: HYDROcodone/Acetaminophen 7.5/325 mg Tablet PO PRN (21:41)
[2016-07-28] MEDS: Pravastatin Sodium 20 MG TAB PO SCH (21:41)
[2016-07-28] MEDS: Levemir Flexpen 100 UNITS/ML PEN SC SCH (21:42)
[2016-07-29] MEDS: Enoxaparin Sodium 30 MG/0.3 ML SYRINGE SC SCH (06:01)
[2016-07-29] MEDS: HumaLOG 300 UNITS/3 ML VIAL SC SCH ×3 (07:49→16:32)
[2016-07-29] MEDS: Docusate (Surfak) 240 MG CAP PO SCH ×2 (08:57→20:58)
[2016-07-29] MEDS: Oxybutynin Chloride 5 MG TAB PO SCH ×3 (08:57→20:58)
[2016-07-29] MEDS: Famotidine 20 MG TAB PO SCH ×2 (08:57→20:59)
[2016-07-29] MEDS: Nystatin Cream 15 GM TUBE TOP SCH ×3 (08:58→21:07)
[2016-07-29] MEDS: Venlafaxine HCl 25 MG TAB PO SCH (08:58)
[2016-07-29] MEDS: HYDROcodone/Acetaminophen 7.5/325 mg Tablet PO PRN ×2 (13:53→20:59)
[2016-07-29] MEDS: Levemir Flexpen 100 UNITS/ML PEN SC SCH (20:56)
[2016-07-29] MEDS: Lisinopril 20 MG TAB PO SCH (20:58)
[2016-07-29] MEDS: Pravastatin Sodium 20 MG TAB PO SCH (20:58)
[2016-07-29] MEDS: Gabapentin 300 MG CAP PO SCH (20:58)
[2016-07-29] MEDS: diphenhydrAMINE HCl 25 MG CAP PO PRN (20:58)
[2016-07-30] MEDS: Enoxaparin Sodium 30 MG/0.3 ML SYRINGE SC SCH (06:19)
[2016-07-30] MEDS: HumaLOG 300 UNITS/3 ML VIAL SC SCH ×3 (07:52→16:03)
[2016-07-30] MEDS: Venlafaxine HCl 25 MG TAB PO SCH (08:37)
[2016-07-30] MEDS: Nystatin Cream 15 GM TUBE TOP SCH ×3 (08:37→21:49)
[2016-07-30] MEDS: Docusate (Surfak) 240 MG CAP PO SCH ×2 (08:37→21:50)
[2016-07-30] MEDS: Famotidine 20 MG TAB PO SCH ×2 (08:37→21:50)
[2016-07-30] MEDS: Oxybutynin Chloride 5 MG TAB PO SCH ×3 (08:37→21:50)
[2016-07-30] MEDS: HYDROcodone/Acetaminophen 7.5/325 mg Tablet PO PRN ×2 (12:03→21:51)
[2016-07-30] MEDS: Pravastatin Sodium 20 MG TAB PO SCH (21:49)
[2016-07-30] MEDS: diphenhydrAMINE HCl 25 MG CAP PO PRN (21:50)
[2016-07-30] MEDS: Gabapentin 300 MG CAP PO SCH (21:50)
[2016-07-30] MEDS: Lisinopril 20 MG TAB PO SCH (21:50)
[2016-07-30] MEDS: Levemir Flexpen 100 UNITS/ML PEN SC SCH (21:52)
[2016-07-31] MEDS: Enoxaparin Sodium 30 MG/0.3 ML SYRINGE SC SCH (06:12)
[2016-07-31] MEDS: HumaLOG 300 UNITS/3 ML VIAL SC SCH ×3 (08:29→16:33)
[2016-07-31] MEDS: Venlafaxine HCl 25 MG TAB PO SCH (08:30)
[2016-07-31] MEDS: Docusate (Surfak) 240 MG CAP PO SCH ×2 (08:30→21:50)
[2016-07-31] MEDS: Famotidine 20 MG TAB PO SCH ×2 (08:30→21:50)
[2016-07-31] MEDS: Oxybutynin Chloride 5 MG TAB PO SCH ×3 (08:30→21:50)
[2016-07-31] MEDS: Nystatin Cream 15 GM TUBE TOP SCH ×3 (08:30→21:49)
[2016-07-31] MEDS: HYDROcodone/Acetaminophen 7.5/325 mg Tablet PO PRN ×3 (08:31→21:50)
[2016-07-31] MEDS: Lisinopril 20 MG TAB PO SCH (21:49)
[2016-07-31] MEDS: Levemir Flexpen 100 UNITS/ML PEN SC SCH (21:49)
[2016-07-31] MEDS: diphenhydrAMINE HCl 25 MG CAP PO PRN (21:50)
[2016-07-31] MEDS: Gabapentin 300 MG CAP PO SCH (21:50)
[2016-07-31] MEDS: Pravastatin Sodium 20 MG TAB PO SCH (21:50)
[2016-08-01] MEDS: Enoxaparin Sodium 30 MG/0.3 ML SYRINGE SC SCH (05:59)
--- NOTE | 2016-08-01 07:01 | PRG ---
DATE OF SERVICE: 08/01/2016 SUBJECTIVE: The patient feels well except for mild cough, no sputum production, no fever or chills, no shortness of breath. She has been exercising well in the Physical Therapy Department with exerc ise machine, still nonweightbearing. OBJECTIVE: Blood pressure is 132/68, O2 sat 94%, respirations 19, pulse 73, afebrile. Lungs are cl ear. Cardiac examination shows regular rhythm. Abdomen is soft and nontender. Accu-Cheks still labile from 157 to 268 with no recent hypoglycemia. ASSESSMENT: 1. Possible allergic rhinitis versus upper respiratory infection. We will treat with Robitussin an d loratadine. 2. Persistent poor control of diabetes. Will increase Humalog to 16 units at noon and 11 units bef ore breakfast and supper. It does appear that she may require and will also increase Levemir to 42 units at night.
[2016-08-01] MEDS: HumaLOG 300 UNITS/3 ML VIAL SC SCH ×3 (07:50→16:54)
[2016-08-01] MEDS: Acetaminophen 325 MG TAB PO PRN (08:51)
[2016-08-01] MEDS: Docusate (Surfak) 240 MG CAP PO SCH ×2 (08:51→20:08)
[2016-08-01] MEDS: Venlafaxine HCl 25 MG TAB PO SCH (08:52)
[2016-08-01] MEDS: Oxybutynin Chloride 5 MG TAB PO SCH ×3 (08:52→20:10)
[2016-08-01] MEDS: Famotidine 20 MG TAB PO SCH ×2 (08:53→20:08)
[2016-08-01] MEDS: Guaifenesin DM 100-10/5 ML UDCUP PO PRN ×2 (08:58→21:56)
[2016-08-01] MEDS: Nystatin Cream 15 GM TUBE TOP SCH ×3 (09:02→20:10)
[2016-08-01] MEDS: Loratadine 10 MG TAB PO PRN (11:39)
[2016-08-01] MEDS: HYDROcodone/Acetaminophen 7.5/325 mg Tablet PO PRN (13:39)
[2016-08-01] MEDS: Levemir Flexpen 100 UNITS/ML PEN SC SCH (20:08)
[2016-08-01] MEDS: Gabapentin 300 MG CAP PO SCH (20:08)
[2016-08-01] MEDS: Lisinopril 20 MG TAB PO SCH (20:09)
[2016-08-01] MEDS: Pravastatin Sodium 20 MG TAB PO SCH (20:10)
[2016-08-01] MEDS: HYDROcodone/Acetaminophen 10/325 mg Tablet PO PRN (20:11)
[2016-08-02] MEDS: Enoxaparin Sodium 30 MG/0.3 ML SYRINGE SC SCH (06:20)
--- NOTE | 2016-08-02 08:15 | PRG ---
DATE OF SERVICE: 08/02/2016 SUBJECTIVE: The patient feels much better with only a raspy throat, but no pain in her legs, no morteza rtness of breath, no cough, no nausea or vomiting. She has had her insulin increased yesterday, but still elevated Accu-Chek this morning secondary to a nighttime snack which she is requesting to ref use. OBJECTIVE: Shows her to have blood pressure 132/69, temperature 97.5, pulse 76, respirations 18, O2 is 97%, afebrile. Accu-Cheks show her Accu-Cheks were down to 139 to 124 yesterday evening, bumped to 281 this morning after nighttime snack. Her lungs are clear. Cardiac examination shows regular rhythm. Left femur incision is well healed. Skin and extremities show no edema. ASSESSMENT: 1. Resolving left distal femur fracture status post open reduction internal fixation with follow up with orthopedic surgeon on 08/16/2016 and nonweightbearing until that time 2. Poorly controlled brittle diabetes. Increasing insulin requirements, will stress compliance to low carbohydrate at night. 3. Deconditioning, improving greatly with good cooperation with physical therapy. PLAN: Stress no nighttime snack. Continue present dose of insulin. Continue nonweightbearing phys ical therapy.
[2016-08-02] MEDS: Famotidine 20 MG TAB PO SCH ×2 (08:51→20:49)
[2016-08-02] MEDS: Venlafaxine HCl 25 MG TAB PO SCH (08:51)
[2016-08-02] MEDS: Docusate (Surfak) 240 MG CAP PO SCH ×2 (08:51→20:50)
[2016-08-02] MEDS: Oxybutynin Chloride 5 MG TAB PO SCH ×3 (08:52→20:49)
[2016-08-02] MEDS: Guaifenesin DM 100-10/5 ML UDCUP PO PRN (08:53)
[2016-08-02] MEDS: HumaLOG 300 UNITS/3 ML VIAL SC SCH ×3 (08:54→17:48)
[2016-08-02] MEDS: HYDROcodone/Acetaminophen 7.5/325 mg Tablet PO PRN (08:59)
[2016-08-02] MEDS: Nystatin Cream 15 GM TUBE TOP SCH ×3 (10:17→20:50)
[2016-08-02] MEDS: Lisinopril 20 MG TAB PO SCH (20:47)
[2016-08-02] MEDS: HYDROcodone/Acetaminophen 10/325 mg Tablet PO PRN (20:48)
[2016-08-02] MEDS: Gabapentin 300 MG CAP PO SCH (20:48)
[2016-08-02] MEDS: Levemir Flexpen 100 UNITS/ML PEN SC SCH (20:49)
[2016-08-02] MEDS: diphenhydrAMINE HCl 25 MG CAP PO PRN (20:49)
[2016-08-02] MEDS: Pravastatin Sodium 20 MG TAB PO SCH (20:49)
[2016-08-03] MEDS: HYDROcodone/Acetaminophen 7.5/325 mg Tablet PO PRN ×2 (05:46→20:50)
[2016-08-03] MEDS: Enoxaparin Sodium 30 MG/0.3 ML SYRINGE SC SCH (05:47)
--- NOTE | 2016-08-03 06:55 | PRG ---
DATE OF SERVICE: 08/03/2016 SUBJECTIVE: The patient complained of back pain yesterday after being in the wheelchair all day, bu t now feels better. She states she did walk all the way around the nurses' station in less than 8 m inutes with a walker and with nonweightbearing on the left leg. She is having no pain in the left l eg. No shortness of breath. She did not take nighttime snack last night except for yogurt and Accu -Chek was 104. OBJECTIVE: Shows her blood pressure is still stable at 132/69, temperature 98, pulse 77, respiratio ns 22, O2 sats 97%. Lungs are clear. Cardiac examination shows regular rhythm. Accu-Cheks range f rom 104 to 230 yesterday. ASSESSMENT: 1. Improving left distal femur fracture status post open reduction internal fixation. Follow up [facility] orthopedic surgeon on 08/15/2016 and nonweightbearing to time 2. Improving deconditioning, ability to walk with a walker around the nurses' station, nonweightbea ring to left leg. 3. Improved diabetic control with improved dietary compliance and increased insulin. PLAN: Continue PT. Continue strict dietary control of diabetes and sliding scale as well as routine insulin.
[2016-08-03] MEDS: HumaLOG 300 UNITS/3 ML VIAL SC SCH ×3 (07:31→16:31)
[2016-08-03] MEDS: Docusate (Surfak) 240 MG CAP PO SCH ×2 (08:20→20:50)
[2016-08-03] MEDS: Famotidine 20 MG TAB PO SCH ×2 (08:20→20:51)
[2016-08-03] MEDS: Oxybutynin Chloride 5 MG TAB PO SCH ×3 (08:21→20:51)
[2016-08-03] MEDS: Nystatin Cream 15 GM TUBE TOP SCH ×3 (08:21→22:09)
[2016-08-03] MEDS: Venlafaxine HCl 25 MG TAB PO SCH (08:22)
[2016-08-03] MEDS: HYDROcodone/Acetaminophen 10/325 mg Tablet PO PRN (11:45)
[2016-08-03] MEDS: Gabapentin 300 MG CAP PO SCH (20:50)
[2016-08-03] MEDS: diphenhydrAMINE HCl 25 MG CAP PO PRN (20:51)
[2016-08-03] MEDS: Lisinopril 20 MG TAB PO SCH (20:51)
[2016-08-03] MEDS: Pravastatin Sodium 20 MG TAB PO SCH (20:51)
[2016-08-03] MEDS: Levemir Flexpen 100 UNITS/ML PEN SC SCH (20:52)
[2016-08-04] MEDS: Enoxaparin Sodium 30 MG/0.3 ML SYRINGE SC SCH (05:57)
[2016-08-04] MEDS: HYDROcodone/Acetaminophen 7.5/325 mg Tablet PO PRN ×3 (05:58→20:11)
[2016-08-04] MEDS: HumaLOG 300 UNITS/3 ML VIAL SC SCH ×3 (08:32→17:07)
[2016-08-04] MEDS: Docusate (Surfak) 240 MG CAP PO SCH ×2 (09:34→20:13)
[2016-08-04] MEDS: Famotidine 20 MG TAB PO SCH ×2 (09:35→20:12)
[2016-08-04] MEDS: Venlafaxine HCl 25 MG TAB PO SCH (09:35)
[2016-08-04] MEDS: Oxybutynin Chloride 5 MG TAB PO SCH ×3 (09:35→20:12)
[2016-08-04] MEDS: Nystatin Cream 15 GM TUBE TOP SCH ×3 (09:36→20:13)
--- NOTE | 2016-08-04 17:13 | PRG ---
DATE OF SERVICE: 08/04/2016 SUBJECTIVE: The patient feels well, resting well with no complaints. Cooperating well with therapy with only complaints of her chronic back pain. OBJECTIVE: Shows her Accu-Cheks are ranged from 124 to 214. Vital signs have been stable with bloo d pressure of 133/60, respirations 20, pulse 80, afebrile. Lungs are clear. Cardiac examination sh ows regular rhythm. Left leg shows a healing incision with no erythema, warmth, or swelling. ASSESSMENT: 1. Resolving left proximal femur fracture status post open reduction and internal fixation. 2. Stable insulin-dependent type 2 diabetes requiring increasing doses of medication and increase c ompliance to diet. 3. Deconditioning, improving. PLAN: Continue physical therapy. Continue to monitor Accu-Cheks. Continue DVT and peptic ulcer pr ophylaxis.
[2016-08-04] MEDS: Levemir Flexpen 100 UNITS/ML PEN SC SCH (20:07)
[2016-08-04] MEDS: Guaifenesin DM 100-10/5 ML UDCUP PO PRN (20:11)
[2016-08-04] MEDS: Pravastatin Sodium 20 MG TAB PO SCH (20:11)
[2016-08-04] MEDS: Lisinopril 20 MG TAB PO SCH (20:12)
[2016-08-04] MEDS: diphenhydrAMINE HCl 25 MG CAP PO PRN (20:12)
[2016-08-04] MEDS: Gabapentin 300 MG CAP PO SCH (20:12)
[2016-08-05] MEDS: Enoxaparin Sodium 30 MG/0.3 ML SYRINGE SC SCH (05:59)
[2016-08-05] MEDS: HumaLOG 300 UNITS/3 ML VIAL SC SCH ×3 (08:18→16:42)
[2016-08-05] MEDS: Docusate (Surfak) 240 MG CAP PO SCH ×2 (08:18→21:41)
[2016-08-05] MEDS: Oxybutynin Chloride 5 MG TAB PO SCH ×3 (08:19→21:42)
[2016-08-05] MEDS: Famotidine 20 MG TAB PO SCH ×2 (08:19→21:40)
[2016-08-05] MEDS: Venlafaxine HCl 25 MG TAB PO SCH (08:19)
[2016-08-05] MEDS: Loratadine 10 MG TAB PO PRN (08:34)
[2016-08-05] MEDS: HYDROcodone/Acetaminophen 7.5/325 mg Tablet PO PRN (08:34)
[2016-08-05] MEDS: Nystatin Cream 15 GM TUBE TOP SCH ×3 (09:27→21:42)
--- NOTE | 2016-08-05 20:37 | PRG ---
DATE OF SERVICE: 08/05/2016 SUBJECTIVE: The patient feels well and is with her family today. She has no shortness of breath, c hest pain, back pain, and no hip pain, only mild right knee pain. She is status post open reduction and internal fixation of left distal femur fracture and is still nonweightbearing until next week. OBJECTIVE: VITAL SIGNS: Blood pressure is 131/60, temperature is 97, pulse 81, respirations 20, O2 sats 96%. Her Accu-Cheks revealed range from 142-246. LUNGS: Clear. CARDIAC: Showed regular rhythm. ABDOMEN: Soft and nontender. No masses or organomegaly. SKIN AND EXTREMITIES: Display no edema, clubbing, cyanosis. Well-healed scar over the left thigh. ASSESSMENT: 1. Resolving left distal femur fracture status post open reduction and internal fixation. 2. Improving deconditioning. 3. Labile diabetes with fair control in the hospital. PLAN: Continue PT. Continue to stress dietary compliance. Continue stress ulcer and DVT prophylaxi s.
[2016-08-05] MEDS: Gabapentin 300 MG CAP PO SCH (21:40)
[2016-08-05] MEDS: HYDROcodone/Acetaminophen 10/325 mg Tablet PO PRN (21:40)
[2016-08-05] MEDS: diphenhydrAMINE HCl 25 MG CAP PO PRN (21:40)
[2016-08-05] MEDS: Lisinopril 20 MG TAB PO SCH (21:41)
[2016-08-05] MEDS: Pravastatin Sodium 20 MG TAB PO SCH (21:41)
[2016-08-05] MEDS: Levemir Flexpen 100 UNITS/ML PEN SC SCH (21:43)
[2016-08-06] MEDS: HYDROcodone/Acetaminophen 7.5/325 mg Tablet PO PRN (06:20)
[2016-08-06] MEDS: Enoxaparin Sodium 30 MG/0.3 ML SYRINGE SC SCH (06:20)
[2016-08-06] MEDS: Docusate (Surfak) 240 MG CAP PO SCH ×2 (08:45→21:39)
[2016-08-06] MEDS: HumaLOG 300 UNITS/3 ML VIAL SC SCH ×3 (08:46→17:32)
[2016-08-06] MEDS: Famotidine 20 MG TAB PO SCH ×2 (08:46→21:35)
[2016-08-06] MEDS: Venlafaxine HCl 25 MG TAB PO SCH (08:46)
[2016-08-06] MEDS: Oxybutynin Chloride 5 MG TAB PO SCH ×3 (08:46→21:35)
[2016-08-06] MEDS: Nystatin Cream 15 GM TUBE TOP SCH ×3 (08:47→21:40)
[2016-08-06] MEDS: HYDROcodone/Acetaminophen 10/325 mg Tablet PO PRN ×2 (12:14→21:34)
[2016-08-06] MEDS: Lisinopril 20 MG TAB PO SCH (21:35)
[2016-08-06] MEDS: Pravastatin Sodium 20 MG TAB PO SCH (21:35)
[2016-08-06] MEDS: Gabapentin 300 MG CAP PO SCH (21:36)
[2016-08-06] MEDS: diphenhydrAMINE HCl 25 MG CAP PO PRN (21:36)
[2016-08-06] MEDS: Levemir Flexpen 100 UNITS/ML PEN SC SCH (21:39)
--- NOTE | 2016-08-07 02:04 | PRG ---
DATE OF SERVICE: 08/06/2016 SUBJECTIVE: The patient is a 81-year-old white female doing well status post left distal femur frac ture, status post open reduction and internal fixation, but still nonweightbearing until seen by her surgeon next week. She is increasing her strength and cooperating well with therapy. She has had fair control of her diabetes secondary to noncompliance, which has been very labile. She has had no shortness of breath or chest pain. OBJECTIVE: VITAL SIGNS: Shows blood pressure is 149/65, pulse 69, temperature is 97.1, and O2 sats 96% on room air, respirations 19. Accu-Cheks ranged from 99 to . LUNGS: Clear. CARDIAC: Shows regular rhythm. EXTREMITIES: Left leg shows healed proximal distal femur lesion. ASSESSMENT: 1. Healing left distal femur fracture status post open reduction and internal fixation. 2. Improving deconditioning. 3. Labile diabetes, improved, but still uncontrolled. PLAN: Continue to stress diet and may adjust insulin in the next several days. Continue physical t herapy.
[2016-08-07] MEDS: Enoxaparin Sodium 30 MG/0.3 ML SYRINGE SC SCH (06:00)
[2016-08-07] MEDS: HYDROcodone/Acetaminophen 7.5/325 mg Tablet PO PRN (06:00)
[2016-08-07] MEDS: HumaLOG 300 UNITS/3 ML VIAL SC SCH ×3 (07:29→17:09)
[2016-08-07] MEDS: Venlafaxine HCl 25 MG TAB PO SCH (08:24)
[2016-08-07] MEDS: Oxybutynin Chloride 5 MG TAB PO SCH ×3 (08:24→20:04)
[2016-08-07] MEDS: Nystatin Cream 15 GM TUBE TOP SCH ×3 (08:24→20:05)
[2016-08-07] MEDS: Docusate (Surfak) 240 MG CAP PO SCH ×2 (08:24→20:04)
[2016-08-07] MEDS: Famotidine 20 MG TAB PO SCH ×2 (08:24→20:04)
--- NOTE | 2016-08-07 10:31 | PRG ---
DATE OF SERVICE: 08/07/2016 SUBJECTIVE: The patient feels well with no pain in her leg. No shortness of breath, no weakness. She did not have therapy yesterday, but is awaiting therapy today. She has been doing passive range of motion in bed and has maintained splint, otherwise went out of bed. OBJECTIVE: VITAL SIGNS: Shows blood pressure 142/61, temperature is 96, pulse 73, respirations 20, O2 sats 95% on room air. Accu-Cheks ranged from 79 to 167. LUNGS: Clear. CARDIAC: Shows regular rhythm. ASSESSMENT: 1. Resolving distal femur fracture status post open reduction and internal fixation on 06/21/2016. 2. Stable type 2 diabetes in the last 24 hours secondary to compliance to diet. 3. Improving deconditioning, awaiting physical therapy. PLAN: Follow up with orthopedic surgeon 08/23. Continue physical therapy, nonweightbearing in the left femur fracture. Continue stress compliance with diet in good diabetic control.
[2016-08-07] MEDS: HYDROcodone/Acetaminophen 10/325 mg Tablet PO PRN ×3 (11:17→23:10)
[2016-08-07] MEDS: Pravastatin Sodium 20 MG TAB PO SCH (20:04)
[2016-08-07] MEDS: Levemir Flexpen 100 UNITS/ML PEN SC SCH (20:04)
[2016-08-07] MEDS: Gabapentin 300 MG CAP PO SCH (20:04)
[2016-08-07] MEDS: Lisinopril 20 MG TAB PO SCH (20:05)
[2016-08-07] MEDS: diphenhydrAMINE HCl 25 MG CAP PO PRN (21:40)
[2016-08-08] MEDS: HYDROcodone/Acetaminophen 10/325 mg Tablet PO PRN ×2 (06:01→20:12)
[2016-08-08] MEDS: Enoxaparin Sodium 30 MG/0.3 ML SYRINGE SC SCH (06:01)
[2016-08-08] MEDS: HumaLOG 300 UNITS/3 ML VIAL SC SCH ×3 (07:39→16:47)
--- NOTE | 2016-08-08 08:10 | PRG ---
DATE OF SERVICE: 08/08/2016 SUBJECTIVE: The patient complains of lower back pain, in fact, states that she slipped to the floor yesterday and twisted her ankle while doing therapy because her back gave way on her. She did not have any significant trauma to the left leg or the right knee and feels well at rest at this time. She states that her back had been doing well, but has a history of recurrent pain and weakness previ ously. OBJECTIVE: Shows her blood pressure is stable 132/58, pulse 77, respirations 22, O2 sats 95%, afebr ile. Lungs are clear. Cardiac examination shows regular rhythm. Left ankle shows no swelling or e cchymoses, good range of motion. Left lower thigh shows a healing incision. No particular pain to palpation. ASSESSMENT: 1. Resolving left distal femur fracture status post open reduction internal fixation. Follow up [facility] orthopedic surgeon on 08/15/2016, nonweightbearing until that time. 2. Recurrent chronic degenerative disk disease of the lower back, lumbar spine with recurrent pain with episode of significant pain yesterday, now improved. 3. Severe deconditioning. This had been improving, but with concerns about yesterday's fall whethe r the patient is able do ADLs once discharged. PLAN: Continue to monitor for back pain and weakness while doing physical therapy. Continue nonwei ghtbearing of the left leg. Continue to stress compliance to diet and good diabetic control.
[2016-08-08] MEDS: Docusate (Surfak) 240 MG CAP PO SCH ×2 (08:14→20:12)
[2016-08-08] MEDS: Nystatin Cream 15 GM TUBE TOP SCH ×3 (08:15→20:18)
[2016-08-08] MEDS: Oxybutynin Chloride 5 MG TAB PO SCH ×3 (08:15→20:13)
[2016-08-08] MEDS: Famotidine 20 MG TAB PO SCH ×2 (08:15→20:13)
[2016-08-08] MEDS: Venlafaxine HCl 25 MG TAB PO SCH (08:15)
[2016-08-08] MEDS: HYDROcodone/Acetaminophen 7.5/325 mg Tablet PO PRN (13:16)
[2016-08-08] MEDS: Gabapentin 300 MG CAP PO SCH (20:12)
[2016-08-08] MEDS: Pravastatin Sodium 20 MG TAB PO SCH (20:12)
[2016-08-08] MEDS: Lisinopril 20 MG TAB PO SCH (20:12)
[2016-08-08] MEDS: diphenhydrAMINE HCl 25 MG CAP PO PRN (20:12)
[2016-08-08] MEDS: Levemir Flexpen 100 UNITS/ML PEN SC SCH (20:13)
[2016-08-09] MEDS: HYDROcodone/Acetaminophen 7.5/325 mg Tablet PO PRN ×3 (05:23→18:11)
[2016-08-09] MEDS: Enoxaparin Sodium 30 MG/0.3 ML SYRINGE SC SCH (05:24)
[2016-08-09] MEDS: HumaLOG 300 UNITS/3 ML VIAL SC SCH ×3 (07:38→17:02)
[2016-08-09] MEDS: Venlafaxine HCl 25 MG TAB PO SCH (09:18)
[2016-08-09] MEDS: Famotidine 20 MG TAB PO SCH ×2 (09:18→21:03)
[2016-08-09] MEDS: Oxybutynin Chloride 5 MG TAB PO SCH ×3 (09:18→21:03)
[2016-08-09] MEDS: Docusate (Surfak) 240 MG CAP PO SCH ×2 (09:18→21:03)
[2016-08-09] MEDS: Cyclobenzaprine 10 MG TAB PO PRN ×2 (09:18→21:06)
[2016-08-09] MEDS: Nystatin Cream 15 GM TUBE TOP SCH ×3 (09:23→21:04)
[2016-08-09] MEDS ORDERED: Acetaminophen 325 MG TAB PO PRN (14:37)
[2016-08-09] MEDS: Gabapentin 300 MG CAP PO SCH (21:02)
[2016-08-09] MEDS: Pravastatin Sodium 20 MG TAB PO SCH (21:02)
[2016-08-09] MEDS: Lisinopril 20 MG TAB PO SCH (21:03)
[2016-08-09] MEDS: diphenhydrAMINE HCl 25 MG CAP PO PRN (21:03)
[2016-08-09] MEDS: Levemir Flexpen 100 UNITS/ML PEN SC SCH (21:04)
[2016-08-10] MEDS: Enoxaparin Sodium 30 MG/0.3 ML SYRINGE SC SCH (05:48)
[2016-08-10] MEDS: HumaLOG 300 UNITS/3 ML VIAL SC SCH ×3 (07:21→16:27)
--- NOTE | 2016-08-10 08:26 | PRG ---
DATE OF SERVICE: 08/09/2016 SUBJECTIVE: The patient feels well except for neck pain which she states started during the night a nd radiated into her arms, not associated with numbness, tingling in her arms, associated with some mild headache. She had no fall. She did twist herself during therapy. OBJECTIVE: Shows neck muscles show palpable spasms. Lungs are clear. Cardiac examination shows re gular rhythm. Neurological shows no focal findings. Temperature 96.7, pulse 76, respirations 18, O 2 sats 94%. Accu-Cheks show 92 to 183. ASSESSMENT: 1. Resolving left femur fracture. Follow up with orthopedic surgeon 08/15/2016. 2. New finding of current muscle spasms secondary to recurrent cervical arthritis and exacerbation with therapy. 3. Improving deconditioning. 4. Stable diabetes on sliding scale and routine insulin schedule. PLAN: Continue physical therapy, continue hot packs, muscle relaxant and nonsteroidal. Continue to monitor Accu-Cheks.
--- NOTE | 2016-08-10 08:40 | PRG ---
DATE OF SERVICE: 08/10/2016 SUBJECTIVE: The patient feels better today with decreased neck pain and increased strength, did not do much therapy except therapy in the bed yesterday. Her lower back, which is improving, but still present. OBJECTIVE: Shows Accu-Cheks 178. Vital signs show blood pressure of 168/72, temperature is 98, pul se 71, respirations 18, O2 saturation is 95%. Lungs are clear. Cardiac examination shows regular r hythm. Neck shows decreased muscle spasm. Neurological is intact. Left femur shows no tenderness or swelling. ASSESSMENT: Resolving left femur fracture, resolving muscle spasms of the spine, persistence degene rative disk disease, joint disease of the lumbar spine, stable Accu-Cheks, improving deconditioning. PLAN: Continue slowly improved physical therapy and deconditioning. Follow ups with orthopedic ashley romann on 08/15/2016 and hopeful release of nonweightbearing to left leg.
[2016-08-10] MEDS: Oxybutynin Chloride 5 MG TAB PO SCH ×3 (08:59→20:50)
[2016-08-10] MEDS: Docusate (Surfak) 240 MG CAP PO SCH ×2 (08:59→20:48)
[2016-08-10] MEDS: Venlafaxine HCl 25 MG TAB PO SCH (09:00)
[2016-08-10] MEDS: HYDROcodone/Acetaminophen 7.5/325 mg Tablet PO PRN ×2 (09:00→16:00)
[2016-08-10] MEDS: Famotidine 20 MG TAB PO SCH ×2 (09:01→20:48)
[2016-08-10] MEDS: Nystatin Cream 15 GM TUBE TOP SCH ×3 (09:01→20:55)
[2016-08-10] MEDS: Cyclobenzaprine 10 MG TAB PO PRN (11:51)
[2016-08-10] MEDS: Gabapentin 300 MG CAP PO SCH (20:48)
[2016-08-10] MEDS: Levemir Flexpen 100 UNITS/ML PEN SC SCH (20:48)
[2016-08-10] MEDS: Lisinopril 20 MG TAB PO SCH (20:49)
[2016-08-10] MEDS: diphenhydrAMINE HCl 25 MG CAP PO PRN (20:50)
[2016-08-10] MEDS: Pravastatin Sodium 20 MG TAB PO SCH (20:50)
[2016-08-10] MEDS: HYDROcodone/Acetaminophen 10/325 mg Tablet PO PRN (20:51)
[2016-08-11] MEDS: Ondansetron ODT 4 MG TAB PO PRN ×2 (03:04→21:03)
[2016-08-11] MEDS: Enoxaparin Sodium 30 MG/0.3 ML SYRINGE SC SCH (05:24)
[2016-08-11] MEDS: HumaLOG 300 UNITS/3 ML VIAL SC SCH ×3 (07:50→16:51)
[2016-08-11] MEDS: Oxybutynin Chloride 5 MG TAB PO SCH ×3 (08:36→20:37)
[2016-08-11] MEDS: Venlafaxine HCl 25 MG TAB PO SCH (08:36)
[2016-08-11] MEDS: Famotidine 20 MG TAB PO SCH ×2 (08:36→20:38)
[2016-08-11] MEDS: Docusate (Surfak) 240 MG CAP PO SCH ×2 (08:37→20:37)
[2016-08-11] MEDS: Nystatin Cream 15 GM TUBE TOP SCH ×3 (08:37→20:45)
[2016-08-11 10:10] LABS: #Basophils 0.1 thou/uL (0.0-0.2); #Eosinphils 0.2 thou/uL (0.0-0.7); #Lymphocytes 1.2 thou/uL (1.20-3.40); #Monocytes 0.3 thou/uL (0.11-0.59); #Neutrophils 7.6 thou/uL (1.40-6.50); %Basophils 0.6 % (0.0-1.0); %Eosinophils 2.3 % (0.0-10.0); %Lymphocytes 12.7 % (21.0-51.0); %Monocytes 3.6 % (0.0-10.0); Hematocrit 40.7 % (36.0-47.0); Mean Platelet Volume 7.7 fL (7.4-10.4); Red Blood Cell (RBC) Count 4.61 mill/uL (4.20-5.40); White Blood Cell (WBC) Count 9.4 thou/uL (4.8-10.8)
[2016-08-11 10:22] LABS: ALT (SGPT) 8 U/L (0-55); AST (SGOT) 13 U/L (5-34); Alkaline Phosphatase 78 U/L (40-150); Anion Gap 12 mmol/L (10-20); BUN (Urea Nitrogen) 21 mg/dL (9.8-20.1); Bilirubin, Total 0.3 mg/dL (0.2-1.2); Calc. Creatinine Clearance 82 mL/min (70-130); Calcium 9.5 mg/dL (7.8-10.44); Carbon Dioxide 27 mmol/L (23-31); Chloride 103 mmol/L (98-107); Estimated GFR-MDRD 63; Globulin 2.7 g/dL (2.4-3.5); Protein, Total 6.2 g/dL (5.8-8.1)
--- NOTE | 2016-08-11 12:37 | PRG ---
DATE OF SERVICE: 08/11/2016 SUBJECTIVE: The patient complains of nausea, vomiting last night with some abdominal cramps, but wi th no diarrhea. She has felt myalgias today with no fever, chills or cough. She has had some dysur ia or with no hematuria, no back pain. She has recently had a urinary tract infection and has finis hed the antibiotics and does have a history of urinary retention. Her laboratory show that her Accu-Cheks remained stable from 117 to 213, although was elevated 254 t his morning. Lungs are clear. Cardiac examination shows regular rhythm. Abdomen is soft and nonte nder. Skin and extremities display no edema, clubbing, cyanosis. ASSESSMENT: A 81-year-old white female with left distal femur fracture status post open reduction a nd internal fixation in now for therapy, who has developed nausea, some abdominal cramps, and recurr ent dysuria and has a history of recurrent urinary tract infection. PLAN: Obtain urinalysis and urine culture. Obtain bladder scan for retention. Check CBC, comp met , evaluate for recurrent urinary tract infection or gastroenteritis.
[2016-08-11] MEDS: HYDROcodone/Acetaminophen 7.5/325 mg Tablet PO PRN ×2 (13:19→21:03)
[2016-08-11] MEDS: Pravastatin Sodium 20 MG TAB PO SCH (20:37)
[2016-08-11] MEDS: Lisinopril 20 MG TAB PO SCH (20:38)
[2016-08-11] MEDS: Gabapentin 300 MG CAP PO SCH (20:38)
[2016-08-11] MEDS: Levemir Flexpen 100 UNITS/ML PEN SC SCH (20:38)
[2016-08-11 22:06] LABS: Bilirubin Negative (Negative); Blood, Urine Negative (Negative); Glucose, Urine (Dipstick) 100 mg/dL (Negative); Ketone, Urine Negative (Negative); Nitrite Negative (Negative); Protein, Urine (Dipstick) Negative (Neg-Trace); Urobilinogen 0.2 mg/dL (0.2-1.0)
[2016-08-11 22:17] LABS: Bacteria/HPF 3+ HPF (None Seen); RBC/HPF 0-3 HPF (0-3); Squamous Epithelial 0-3 HPF (0-3)
[2016-08-12] MEDS: Enoxaparin Sodium 30 MG/0.3 ML SYRINGE SC SCH (05:54)
[2016-08-12] MEDS: HumaLOG 300 UNITS/3 ML VIAL SC SCH ×3 (07:24→16:36)
[2016-08-12] MEDS: Oxybutynin Chloride 5 MG TAB PO SCH ×3 (08:37→20:26)
[2016-08-12] MEDS: Docusate (Surfak) 240 MG CAP PO SCH ×2 (08:37→20:24)
[2016-08-12] MEDS: Venlafaxine HCl 25 MG TAB PO SCH (08:38)
[2016-08-12] MEDS: Famotidine 20 MG TAB PO SCH ×2 (08:39→20:25)
[2016-08-12] MEDS: Nystatin Cream 15 GM TUBE TOP SCH ×3 (08:40→20:26)
[2016-08-12] MEDS: HYDROcodone/Acetaminophen 7.5/325 mg Tablet PO PRN ×2 (08:44→21:18)
--- NOTE | 2016-08-12 10:34 | PRG ---
DATE OF SERVICE: 08/12/2016. SUBJECTIVE: The patient feels well except for some mild nausea, anorexia, improved from yesterday w ith no further vomiting or diarrhea. No fever or chills. OBJECTIVE: Shows her laboratory yesterday showed white count 9400, hematocrit 40, hemoglobin 12. S odium 137, potassium 4.7, chloride 103, bicarbonate 27, BUN 21, creatinine 0.87, glucose ranged from 95-287. Urinalysis within normal limits. Abdomen is soft and nontender. Lungs are clear. ASSESSMENT: Resolved nausea, vomiting and diarrhea, persistent anorexia and malaise, possibly due t o viral syndrome. PLAN: 1. Continue to monitor closely with symptomatic treatment. 2. Resolving left distal femur fracture, status post open reduction and internal fixation. 3. Insulin-dependent diabetes, fair control in the hospital.
[2016-08-12] MEDS: Lisinopril 20 MG TAB PO SCH (20:24)
[2016-08-12] MEDS: Gabapentin 300 MG CAP PO SCH (20:25)
[2016-08-12] MEDS: Pravastatin Sodium 20 MG TAB PO SCH (20:25)
[2016-08-12] MEDS: Levemir Flexpen 100 UNITS/ML PEN SC SCH (20:27)
[2016-08-13] MEDS: Enoxaparin Sodium 30 MG/0.3 ML SYRINGE SC SCH (05:32)
[2016-08-13] MEDS: HumaLOG 300 UNITS/3 ML VIAL SC SCH ×3 (07:34→16:31)
[2016-08-13] MEDS: Docusate (Surfak) 240 MG CAP PO SCH ×2 (08:57→21:10)
[2016-08-13] MEDS: Oxybutynin Chloride 5 MG TAB PO SCH ×3 (08:58→21:10)
[2016-08-13] MEDS: Venlafaxine HCl 25 MG TAB PO SCH (08:58)
[2016-08-13] MEDS: Famotidine 20 MG TAB PO SCH ×2 (08:58→21:10)
[2016-08-13] MEDS: Nystatin Cream 15 GM TUBE TOP SCH ×3 (08:59→21:12)
[2016-08-13] MEDS: Loratadine 10 MG TAB PO PRN (09:05)
[2016-08-13] MEDS: Cyclobenzaprine 10 MG TAB PO PRN (13:54)
[2016-08-13] MEDS ORDERED: Mag-Al Plus 1200 MG/1200 MG/120 MG/30 ML UDCUP PO PRN (15:47)
--- NOTE | 2016-08-13 17:34 | PRG ---
DATE OF SERVICE: 08/13/2016 SUBJECTIVE: Ms. Sinha is having some heartburn, otherwies she is doing well. Denies any complai nts. Incisions are healing well. She is following up with her specialist in [place] and hopefully she will have some changes to her weightbearing status. Discussed with nursing and no concerns. OBJECTIVE: VITAL SIGNS: She is afebrile, heart rate is 75, respirations 18, oxygen saturation is 94%, blood pr essure 142/62. CARDIOVASCULAR: S1, S2 plus. RESPIRATORY: Normal vesicular breath sounds. ABDOMEN: Soft, nontender, bowel sounds heard in all quadrants, obese. EXTREMITIES: Without cyanosis, clubbing. No neurovascular compromise. IMPRESSION: 1. Heartburn, likely acid reflux. 2. Left femur fracture, status post medullary pins. 3. Resolved urinary tract infection. 4. Diabetes mellitus type 2. 5. Hypertension. 6. Dyslipidemia. 7. Deconditioning. PLAN: 1. Maalox 30 mL q.6 h. p.r.n. 2. Continue Heart healthy ADA diet. 3. Physical therapy. 4. Nutritional support. 5. DVT and stress ulcer prophylaxis. 6. Dr. Ventura back tonight.
[2016-08-13] MEDS: Levemir Flexpen 100 UNITS/ML PEN SC SCH (21:09)
[2016-08-13] MEDS: Gabapentin 300 MG CAP PO SCH (21:10)
[2016-08-13] MEDS: HYDROcodone/Acetaminophen 7.5/325 mg Tablet PO PRN (21:10)
[2016-08-13] MEDS: Lisinopril 20 MG TAB PO SCH (21:10)
[2016-08-13] MEDS: Pravastatin Sodium 20 MG TAB PO SCH (21:10)
[2016-08-14] MEDS: Cyclobenzaprine 10 MG TAB PO PRN ×3 (00:52→18:59)
[2016-08-14] MEDS: Enoxaparin Sodium 30 MG/0.3 ML SYRINGE SC SCH (06:03)
[2016-08-14] MEDS: HYDROcodone/Acetaminophen 7.5/325 mg Tablet PO PRN ×2 (06:04→13:16)
[2016-08-14] MEDS: HumaLOG 300 UNITS/3 ML VIAL SC SCH ×3 (08:02→18:36)
[2016-08-14] MEDS: Oxybutynin Chloride 5 MG TAB PO SCH ×3 (08:04→20:38)
[2016-08-14] MEDS: Famotidine 20 MG TAB PO SCH ×2 (08:04→20:37)
[2016-08-14] MEDS: Venlafaxine HCl 25 MG TAB PO SCH (08:04)
[2016-08-14] MEDS: Docusate (Surfak) 240 MG CAP PO SCH ×2 (08:05→20:33)
[2016-08-14] MEDS: Nystatin Cream 15 GM TUBE TOP SCH ×3 (08:41→20:38)
--- NOTE | 2016-08-14 11:29 | PRG ---
DATE OF SERVICE: 08/14/2016 SUBJECTIVE: The patient feels complaints of pain and numbness in both feet, limiting her in her phy sical therapy. She denies any nausea or vomiting. She does have pain in her lower back after a fal l. She has had no fever or chills, nausea, vomiting, or further abdominal pain. OBJECTIVE: Shows milan blood pressure is elevated to 172/84, O2 saturation is 94% on room air, respi rations 20, pulse 95, afebrile. Accu-Cheks range from 95 to 287. Lungs are clear. Cardiac examina tion showed regular rhythm. Abdomen is soft and nontender. Skin and extremities show decreased sen sation to pinprick in both feet. Both legs show equal 3/5 strength. Urine culture does show Enterococcus sensitive to amoxicillin. ASSESSMENT: 1. Recurrent urinary tract infection secondary to enterococcus sensitive to amoxicillin. We will s tart on 500 three times daily. 2. Decreased sensation in the feet bilaterally with increased lower back pain after fall, most like ly this is due to her diabetic peripheral neuropathy. We will get CT scan of the lumbar spine to en sure no spinal canal encroachment. 3. Labile diabetes ranged from 95 to 287 and we will stress compliance to diet.
[2016-08-14] MEDS ORDERED: AMOXicillin 500 MG CAP PO SCH (14:00)
[2016-08-14] MEDS: AMOXicillin 250 MG CAP PO SCH ×2 (14:46→20:39)
--- NOTE | 2016-08-14 17:21 | CT ---
CT OF THE LUMBAR SPINE 08/14/2016 HISTORY: Low back pain with numbness to the left leg, following a fall in June. COMPARISON: None. TECHNIQUE: Serial axial CT imaging at 2.5 mm intervals, from the lower thoracic spine through the l ower sacrum, obtained without contrast. Coronal and sagittal reformatted imaging obtained. FINDINGS: Assessment for central canal and/or neural foraminal stenosis is limited on routine CT. There are scattered atherosclerotic calcifications of the abdominal aorta and its branches. There are degenerative changes involving the bilateral sacroiliac joints. Bilateral L5 pars defects are present. There is anterolisthesis of L5 on S1, measuring approximatel y 7 mm. T12-L1: There is bilateral facet hypertrophy, right greater than left. There is a disk-osteophyte complex in the right paracentral region. There is no osseous cause of significant central canal or neural foraminal stenosis. L1-L2: There are severe degenerative endplate changes with bulky anterior osteophyte formation and mild posterior osteophyte. There is a vacuum disk present. L2-L3; There is prominent degenerative endplate change with a vacuum disk present. There is bulky anterior osteophyte formation. There is a posterior osteophyte as well, with at least mild central canal stenosis. Osteophyte encroachment on the right neural foramen causes at least mild right neural foraminal sten osis. No osseous cause of significant left neural foraminal stenosis. L3-L4: Bilateral fact hypertrophy, probable small disk bulge. No osseous cause of significant cent ral canal stenosis. Probable moderate right neural foraminal stenosis. L4-L5: Prominently bilateral facet hypertrophy. At least mild bilateral neural foraminal stenosis. Possible disk bulge with at least mild central canal stenosis. L5-S1: Facet hypertrophy with bilateral severe neural foraminal stenosis secondary to neural forami nal osteophyte encroachment. Posterior osteophyte with at least mild central canal stenosis. No ac bayron fracture. No discrete lytic or blastic bone lesion. IMPRESSION Severe multilevel degenerative change. This includes bilateral L5 pars defects with anterolisthesis of L5 on S1 and severe bilateral L5-S1 neural foraminal stenosis. POS: ERIKA
[2016-08-14] MEDS: Levemir Flexpen 100 UNITS/ML PEN SC SCH (20:37)
[2016-08-14] MEDS: Gabapentin 300 MG CAP PO SCH (20:37)
[2016-08-14] MEDS: Lisinopril 20 MG TAB PO SCH (20:38)
[2016-08-14] MEDS: Pravastatin Sodium 20 MG TAB PO SCH (20:38)
[2016-08-14] MEDS: HYDROcodone/Acetaminophen 10/325 mg Tablet PO PRN (20:39)
[2016-08-15] MEDS: HYDROcodone/Acetaminophen 7.5/325 mg Tablet PO PRN ×2 (05:57→13:32)
[2016-08-15] MEDS: AMOXicillin 250 MG CAP PO SCH ×3 (05:58→20:18)
[2016-08-15] MEDS: Enoxaparin Sodium 30 MG/0.3 ML SYRINGE SC SCH (05:58)
[2016-08-15] MEDS: HumaLOG 300 UNITS/3 ML VIAL SC SCH ×3 (07:45→17:00)
[2016-08-15] MEDS: Venlafaxine HCl 25 MG TAB PO SCH (08:50)
[2016-08-15] MEDS: Oxybutynin Chloride 5 MG TAB PO SCH ×3 (08:50→20:16)
[2016-08-15] MEDS: Loratadine 10 MG TAB PO PRN (08:50)
[2016-08-15] MEDS: Famotidine 20 MG TAB PO SCH ×2 (08:51→20:14)
[2016-08-15] MEDS: Nystatin Cream 15 GM TUBE TOP SCH ×3 (08:51→20:16)
[2016-08-15] MEDS: Docusate (Surfak) 240 MG CAP PO SCH ×2 (08:52→20:14)
[2016-08-15] MEDS: Cyclobenzaprine 10 MG TAB PO PRN (13:32)
[2016-08-15] MEDS: Gabapentin 300 MG CAP PO SCH (20:15)
[2016-08-15] MEDS: Levemir Flexpen 100 UNITS/ML PEN SC SCH (20:15)
[2016-08-15] MEDS: Lisinopril 20 MG TAB PO SCH (20:15)
[2016-08-15] MEDS: Pravastatin Sodium 20 MG TAB PO SCH (20:16)
[2016-08-15] MEDS: HYDROcodone/Acetaminophen 10/325 mg Tablet PO PRN (20:18)
[2016-08-16] MEDS: Enoxaparin Sodium 30 MG/0.3 ML SYRINGE SC SCH (06:01)
[2016-08-16] MEDS: AMOXicillin 250 MG CAP PO SCH ×3 (06:01→21:03)
[2016-08-16] MEDS: HYDROcodone/Acetaminophen 7.5/325 mg Tablet PO PRN ×3 (06:03→21:05)
--- NOTE | 2016-08-16 06:30 | PRG ---
DATE OF SERVICE: 08/16/2016 SUBJECTIVE: The patient feels well with no abdominal pain, nausea or vomiting, still having lower b ack pain and some numbness and tingling in her feet. Appears to be stable. OBJECTIVE: Shows her temperature is 97, pulse 72, respirations 18, O2 sats 93%. CT scan report yes terday reveals significant multilevel degenerative changes with severe bilateral L5-S1 neural forami nal stenosis. Abdomen is obese, nontender. Skin and extremities showed no edema, clubbing, cyanosi s. There is healing antral ulcer on the foot and there is persistent, minimal tenderness in left th igh. ASSESSMENT: 1. Resolving distal left femur fracture status post open reduction internal fixation to follow up w [facility] orthopedic surgeon today. 2. Severe degenerative disk disease with foraminal stenosis L5-S1 diffusely of the back with persis tent pain, but slowly improving neuropathy. 3. Labile diabetes with fair control. 4. Severe deconditioning limited by pain. PLAN: 1. Follow up with orthopedic surgeon today to assess therapy limits. 2. Continue treatment of back pain, analgesics and physical therapy, does not appear to have a surg ical remedy. 3. Continue to stress adequate control of diabetes with diet and meds.
[2016-08-16] MEDS: HumaLOG 300 UNITS/3 ML VIAL SC SCH ×3 (07:57→16:56)
[2016-08-16] MEDS: Oxybutynin Chloride 5 MG TAB PO SCH ×3 (08:25→21:08)
[2016-08-16] MEDS: Venlafaxine HCl 25 MG TAB PO SCH (08:26)
[2016-08-16] MEDS: Nystatin Cream 15 GM TUBE TOP SCH ×3 (08:26→21:08)
[2016-08-16] MEDS: Docusate (Surfak) 240 MG CAP PO SCH ×2 (08:26→21:04)
[2016-08-16] MEDS: Famotidine 20 MG TAB PO SCH ×2 (08:26→21:04)
[2016-08-16] MEDS: Loratadine 10 MG TAB PO PRN (08:28)
[2016-08-16] MEDS: Cyclobenzaprine 10 MG TAB PO PRN ×2 (08:28→21:04)
[2016-08-16] MEDS: Lisinopril 20 MG TAB PO SCH (21:03)
[2016-08-16] MEDS: diphenhydrAMINE HCl 25 MG CAP PO PRN (21:04)
[2016-08-16] MEDS: Pravastatin Sodium 20 MG TAB PO SCH (21:04)
[2016-08-16] MEDS: Gabapentin 300 MG CAP PO SCH (21:04)
[2016-08-16] MEDS: Levemir Flexpen 100 UNITS/ML PEN SC SCH (21:08)
[2016-08-17] MEDS: Cyclobenzaprine 10 MG TAB PO PRN ×3 (05:59→22:02)
[2016-08-17] MEDS: AMOXicillin 250 MG CAP PO SCH ×3 (05:59→22:02)
[2016-08-17] MEDS: HYDROcodone/Acetaminophen 7.5/325 mg Tablet PO PRN ×2 (05:59→22:02)
[2016-08-17] MEDS: Enoxaparin Sodium 30 MG/0.3 ML SYRINGE SC SCH (06:05)
[2016-08-17] MEDS: HumaLOG 300 UNITS/3 ML VIAL SC SCH ×3 (08:02→16:46)
[2016-08-17] MEDS: Nystatin Cream 15 GM TUBE TOP SCH ×3 (09:16→20:36)
[2016-08-17] MEDS: Venlafaxine HCl 25 MG TAB PO SCH (09:17)
[2016-08-17] MEDS: Docusate (Surfak) 240 MG CAP PO SCH ×2 (09:18→20:34)
[2016-08-17] MEDS: Famotidine 20 MG TAB PO SCH ×2 (09:18→20:34)
[2016-08-17] MEDS: Oxybutynin Chloride 5 MG TAB PO SCH ×3 (09:18→20:34)
[2016-08-17] MEDS: HYDROcodone/Acetaminophen 10/325 mg Tablet PO PRN (12:19)
[2016-08-17] MEDS ORDERED: AMOXicillin 250 MG CAP ONE (14:04)
[2016-08-17] MEDS: Loratadine 10 MG TAB PO PRN (14:08)
[2016-08-17] MEDS: Lisinopril 20 MG TAB PO SCH (20:34)
[2016-08-17] MEDS: Pravastatin Sodium 20 MG TAB PO SCH (20:34)
[2016-08-17] MEDS: Gabapentin 300 MG CAP PO SCH (20:34)
[2016-08-17] MEDS: Levemir Flexpen 100 UNITS/ML PEN SC SCH (20:35)
--- NOTE | 2016-08-17 23:53 | PRG ---
DATE OF SERVICE: 08/17/2016 SUBJECTIVE: The patient is a 81-year-old white female with a history of distal femur fracture and w as seen by orthopedic surgeon with no least nonweightbearing for another 4 weeks. Somewhat concerne d that she is having increasing back pain secondary to increasing stress on her right knee, and havi ng some pain. She has been doing exercises in the bed, but has been limited on his transfer, having no shortness of breath or chest pain. OBJECTIVE: Blood pressure is 129/57, pulse is 79, respirations 20, O2 sat 93%, temperature 99.6. L ungs are clear. Cardiac examination showed regular rhythm. Abdomen is soft and nontender. Skin an d extremities showed no edema, clubbing, cyanosis. There was some change cooperates with left dista l femur. Accu-Cheks range from 143-202. ASSESSMENT AND PLAN: A 81-year-old white female with a history of morbid obesity, degenerative join t disease and recent distal femur fracture who is now six weeks postop open reduction internal fixat ions. She has been advised to remain nonweightbearing on left femur for another 4 weeks. Initially , there appeared limited new therapy and is somewhat concerned as to whether she qualifies for thera py and what she can do. We will discuss with hospital administration and patient has how many days skilled facility she has available and whether the options are available to her.
[2016-08-18] MEDS: Enoxaparin Sodium 30 MG/0.3 ML SYRINGE SC SCH (05:37)
[2016-08-18] MEDS: AMOXicillin 250 MG CAP PO SCH ×3 (05:38→20:39)
[2016-08-18] MEDS: HYDROcodone/Acetaminophen 7.5/325 mg Tablet PO PRN ×2 (06:56→20:40)
[2016-08-18] MEDS: Cyclobenzaprine 10 MG TAB PO PRN ×2 (06:56→20:39)
[2016-08-18] MEDS: HumaLOG 300 UNITS/3 ML VIAL SC SCH ×3 (07:30→16:34)
[2016-08-18] MEDS: Oxybutynin Chloride 5 MG TAB PO SCH ×3 (08:49→20:41)
[2016-08-18] MEDS: Nystatin Cream 15 GM TUBE TOP SCH ×3 (08:49→20:42)
[2016-08-18] MEDS: Famotidine 20 MG TAB PO SCH ×2 (08:49→20:40)
[2016-08-18] MEDS: Docusate (Surfak) 240 MG CAP PO SCH ×2 (08:49→20:39)
[2016-08-18] MEDS: Venlafaxine HCl 25 MG TAB PO SCH (08:49)
[2016-08-18] MEDS: Loratadine 10 MG TAB PO PRN (16:34)
[2016-08-18] MEDS: diphenhydrAMINE HCl 25 MG CAP PO PRN (20:39)
[2016-08-18] MEDS: Pravastatin Sodium 20 MG TAB PO SCH (20:39)
[2016-08-18] MEDS: Gabapentin 300 MG CAP PO SCH (20:39)
[2016-08-18] MEDS: Lisinopril 20 MG TAB PO SCH (20:40)
[2016-08-18] MEDS: Levemir Flexpen 100 UNITS/ML PEN SC SCH (20:41)
[2016-08-19] MEDS: AMOXicillin 250 MG CAP PO SCH ×3 (06:05→21:10)
[2016-08-19] MEDS: Enoxaparin Sodium 30 MG/0.3 ML SYRINGE SC SCH (06:05)
[2016-08-19] MEDS: HumaLOG 300 UNITS/3 ML VIAL SC SCH ×3 (07:36→16:59)
[2016-08-19] MEDS: Nystatin Cream 15 GM TUBE TOP SCH ×3 (08:35→20:25)
[2016-08-19] MEDS: Venlafaxine HCl 25 MG TAB PO SCH (08:36)
[2016-08-19] MEDS: Oxybutynin Chloride 5 MG TAB PO SCH ×3 (08:36→20:22)
[2016-08-19] MEDS: Famotidine 20 MG TAB PO SCH ×2 (08:37→20:25)
[2016-08-19] MEDS: Docusate (Surfak) 240 MG CAP PO SCH ×2 (08:37→20:24)
[2016-08-19] MEDS: HYDROcodone/Acetaminophen 7.5/325 mg Tablet PO PRN ×2 (12:02→20:22)
--- NOTE | 2016-08-19 15:20 | PRG ---
DATE OF SERVICE: 08/19/2016 SUBJECTIVE: The patient lying in bed, feels fairly well with no chest pain, shortness of breath, no leg pain at rest and decreased back pain while using a heating pad. Has been eating and sleeping w ell. Has some mild nasal congestion. OBJECTIVE: Accu-Cheks remained 166-259, blood pressure 129/57, O2 is 95%, respirations 20, pulse 75 , afebrile. Accu-Cheks are still labile ranging 166-259. Lungs are clear. Cardiac examination morteza w regular rhythm. Abdomen is soft and nontender. Skin and extremities display no edema, clubbing o r cyanosis. Left leg shows minimal swelling and tenderness of the upper thigh on the left. ASSESSMENT: Persistent nonweightbearing for distal left lower femur fracture, status post open redu ction internal fixation, stable degenerative disk disease of the lower lumbar spine, improving with heat and stable hypertension, uncontrolled diabetes secondary to noncompliance. PLAN: Increase Humalog before meals 12 units before breakfast and supper, and 17 before lunch. Con tinue Levemir at 42 at night and monitor symptoms.
[2016-08-19] MEDS: Pravastatin Sodium 20 MG TAB PO SCH (20:23)
[2016-08-19] MEDS: diphenhydrAMINE HCl 25 MG CAP PO PRN (20:24)
[2016-08-19] MEDS: Cyclobenzaprine 10 MG TAB PO PRN (20:24)
[2016-08-19] MEDS: Gabapentin 300 MG CAP PO SCH (20:24)
[2016-08-19] MEDS: Lisinopril 20 MG TAB PO SCH (20:24)
[2016-08-19] MEDS: Levemir Flexpen 100 UNITS/ML PEN SC SCH (20:25)
[2016-08-20] MEDS: Enoxaparin Sodium 30 MG/0.3 ML SYRINGE SC SCH (06:07)
[2016-08-20] MEDS: AMOXicillin 250 MG CAP PO SCH ×3 (06:07→21:57)
[2016-08-20] MEDS: HumaLOG 300 UNITS/3 ML VIAL SC SCH ×2 (07:16→17:19)
[2016-08-20] MEDS: Famotidine 20 MG TAB PO SCH ×2 (08:17→20:53)
[2016-08-20] MEDS: Docusate (Surfak) 240 MG CAP PO SCH ×2 (08:17→21:55)
[2016-08-20] MEDS: Nystatin Cream 15 GM TUBE TOP SCH ×3 (08:17→20:55)
[2016-08-20] MEDS: Venlafaxine HCl 25 MG TAB PO SCH (08:17)
[2016-08-20] MEDS: Oxybutynin Chloride 5 MG TAB PO SCH ×3 (08:17→20:52)
[2016-08-20] MEDS ORDERED: Cepastat Lozenges 1 LOZ PO PRN (08:24)
--- NOTE | 2016-08-20 11:14 | PRG ---
DATE OF SERVICE: 08/20/2016. SUBJECTIVE: The patient complaining of recurrent sore throat, no fever, chills, only a dry cough, n o shortness of breath or chest pain, no nausea and vomiting. OBJECTIVE: VITAL SIGNS: Showed blood pressure 129/57, temperature 97.4, pulse 71, respirations 20, O2 saturati on 96% room air. LUNGS: Clear. CARDIAC: Showed regular rhythm. PHARYNX: Shows minimal erythema. ASSESSMENT: 1. Probable viral pharyngitis. We will check for strep. 2. Stable left distal femur fracture, status post open reduction and internal fixation, still nonwe ightbearing. 3. Degenerative disk disease and joint disease of the lumbosacral spine with stable [id number] e pain. PLAN: Strep screen, Cepacol lozenges, salt water gargle as if needed. Continued sit up in the hospital for behavioral medicine and hopefully help now.
[2016-08-20] MEDS: HYDROcodone/Acetaminophen 7.5/325 mg Tablet PO PRN ×2 (11:50→20:53)
[2016-08-20] MEDS ORDERED: HumaLOG 300 UNITS/3 ML VIAL SC SCH (12:00)
[2016-08-20] MEDS: Cyclobenzaprine 10 MG TAB PO PRN (20:53)
[2016-08-20] MEDS: Pravastatin Sodium 20 MG TAB PO SCH (20:53)
[2016-08-20] MEDS: Gabapentin 300 MG CAP PO SCH (20:53)
[2016-08-20] MEDS: Lisinopril 20 MG TAB PO SCH (20:53)
[2016-08-20] MEDS: diphenhydrAMINE HCl 25 MG CAP PO PRN (20:53)
[2016-08-20] MEDS: Levemir Flexpen 100 UNITS/ML PEN SC SCH (21:06)
[2016-08-21] MEDS: AMOXicillin 250 MG CAP PO SCH (05:21)
[2016-08-21] MEDS: Enoxaparin Sodium 30 MG/0.3 ML SYRINGE SC SCH (05:21)
[2016-08-21] MEDS: HYDROcodone/Acetaminophen 7.5/325 mg Tablet PO PRN ×3 (06:09→21:04)
[2016-08-21] MEDS: Cyclobenzaprine 10 MG TAB PO PRN ×2 (06:10→21:04)
--- NOTE | 2016-08-21 07:29 | PRG ---
DATE OF SERVICE: 08/21/2016 SUBJECTIVE: The patient feels slightly better today with decreased sore throat and cough, but has b een in bed all day. She has had no fever, chills, nausea, vomiting or diarrhea. She has no pain in her left leg and decreased pain in her lower back. OBJECTIVE: VITAL SIGNS: Shows her blood pressure 129/57, O2 sats 94% on room air, respirations 18, temperature 98.3, pulse 78. LUNGS: Clear. CARDIAC: Cardiac examination showed regular rhythm. Strep screen yesterday was negative, pharynx within normal limits. BACK: Shows decreased tenderness and muscle spasms. ASSESSMENT: 1. Stable distal femur fracture status post open reduction internal fixation, but still nonweightbe aring per surgery request. 2. Pharyngitis, most likely viral, improving with topical treatment with Cepacol. 3. Degenerative disk disease, joint disease of the lower back, persistent with physical therapy and somewhat limiting therapy on the right leg. 4. Uncontrolled diabetes with Accu-Cheks ranging from 159-229. 5. Resolved urinary tract infection. PLAN: 1. Discontinue amoxicillin after 7 days of treatment. 2. Increased Humalog to 13 units before breakfast and supper and 18 units before lunch. 3. Continue physical therapy with nonweightbearing to the left leg.
[2016-08-21] MEDS: HumaLOG 300 UNITS/3 ML VIAL SC SCH ×3 (07:30→16:45)
[2016-08-21] MEDS: Oxybutynin Chloride 5 MG TAB PO SCH ×3 (09:07→21:03)
[2016-08-21] MEDS: Venlafaxine HCl 25 MG TAB PO SCH (09:08)
[2016-08-21] MEDS: Famotidine 20 MG TAB PO SCH ×2 (09:08→21:04)
[2016-08-21] MEDS: Docusate (Surfak) 240 MG CAP PO SCH ×2 (09:08→21:00)
[2016-08-21] MEDS: Nystatin Cream 15 GM TUBE TOP SCH ×3 (09:08→21:03)
[2016-08-21] MEDS: Pravastatin Sodium 20 MG TAB PO SCH (21:03)
[2016-08-21] MEDS: Gabapentin 300 MG CAP PO SCH (21:03)
[2016-08-21] MEDS: Lisinopril 20 MG TAB PO SCH (21:04)
[2016-08-21] MEDS: Levemir Flexpen 100 UNITS/ML PEN SC SCH (21:07)
[2016-08-22] MEDS: Enoxaparin Sodium 30 MG/0.3 ML SYRINGE SC SCH (05:59)
[2016-08-22] MEDS: Cyclobenzaprine 10 MG TAB PO PRN ×3 (06:00→20:25)
[2016-08-22] MEDS: HYDROcodone/Acetaminophen 7.5/325 mg Tablet PO PRN (06:00)
[2016-08-22] MEDS: HumaLOG 300 UNITS/3 ML VIAL SC SCH ×3 (07:43→17:15)
--- NOTE | 2016-08-22 08:43 | PRG ---
DATE OF SERVICE: 08/22/2016 SUBJECTIVE: The patient feels well, lying in bed, talking to her family, who states that she was up in the chair 6 hours yesterday and did cooperate with therapy and slept well last night. OBJECTIVE: Shows her blood pressure is 144/67, O2 sats 94%, respirations 20, pulse 78, afebrile. L ungs are clear. Cardiac examination shows regular rhythm. Left leg shows minimal tenderness to pal pation, right knee shows some crepitance to range of motion, palpable spasm in the lower back, but s he improved. ASSESSMENT: 1. Stable distal left femur fracture status post open reduction and internal fixation, but still no nweightbearing. 2. Degenerative disk disease, lower back, with no chronic pain with increased exercise. 3. Degenerative joint disease of right knee, stable, but with increased pain with increased weight bearing during therapy. 4. Type 2 diabetes with improved control on increased Humalog with Accu-Cheks ranging yesterday fro m 136-158. PLAN: 1. Continue to monitor Accu-Cheks with increasing Humalog if required. 2. Continue physical therapy. 3. Discuss continued discharge planning with the hospital.
[2016-08-22] MEDS: Famotidine 20 MG TAB PO SCH ×2 (08:46→20:25)
[2016-08-22] MEDS: Docusate (Surfak) 240 MG CAP PO SCH ×2 (08:46→20:24)
[2016-08-22] MEDS: Venlafaxine HCl 25 MG TAB PO SCH (08:47)
[2016-08-22] MEDS: Guaifenesin DM 100-10/5 ML UDCUP PO PRN (08:47)
[2016-08-22] MEDS: Oxybutynin Chloride 5 MG TAB PO SCH ×3 (08:47→20:25)
[2016-08-22] MEDS: Nystatin Cream 15 GM TUBE TOP SCH ×3 (08:47→20:27)
[2016-08-22] MEDS: HYDROcodone/Acetaminophen 10/325 mg Tablet PO PRN ×2 (11:49→20:25)
[2016-08-22] MEDS: Pravastatin Sodium 20 MG TAB PO SCH (20:24)
[2016-08-22] MEDS: diphenhydrAMINE HCl 25 MG CAP PO PRN (20:24)
[2016-08-22] MEDS: Lisinopril 20 MG TAB PO SCH (20:25)
[2016-08-22] MEDS: Gabapentin 300 MG CAP PO SCH (20:25)
[2016-08-22] MEDS: Levemir Flexpen 100 UNITS/ML PEN SC SCH (20:26)
[2016-08-23] MEDS: HYDROcodone/Acetaminophen 10/325 mg Tablet PO PRN ×2 (05:57→20:46)
[2016-08-23] MEDS: Cyclobenzaprine 10 MG TAB PO PRN ×2 (05:57→20:46)
[2016-08-23] MEDS: Enoxaparin Sodium 30 MG/0.3 ML SYRINGE SC SCH (05:57)
[2016-08-23] MEDS: HumaLOG 300 UNITS/3 ML VIAL SC SCH ×3 (08:01→17:15)
[2016-08-23] MEDS: Oxybutynin Chloride 5 MG TAB PO SCH ×3 (08:12→20:45)
[2016-08-23] MEDS: Famotidine 20 MG TAB PO SCH ×2 (08:12→20:44)
[2016-08-23] MEDS: Venlafaxine HCl 25 MG TAB PO SCH (08:12)
[2016-08-23] MEDS: Loratadine 10 MG TAB PO PRN (08:12)
[2016-08-23] MEDS: Docusate (Surfak) 240 MG CAP PO SCH ×2 (08:12→20:44)
[2016-08-23] MEDS: Nystatin Cream 15 GM TUBE TOP SCH ×3 (08:13→20:45)
[2016-08-23] MEDS: Guaifenesin DM 100-10/5 ML UDCUP PO PRN ×2 (12:05→20:46)
[2016-08-23] MEDS: HYDROcodone/Acetaminophen 7.5/325 mg Tablet PO PRN (12:06)
[2016-08-23] MEDS: Levemir Flexpen 100 UNITS/ML PEN SC SCH (20:44)
[2016-08-23] MEDS: Gabapentin 300 MG CAP PO SCH (20:44)
[2016-08-23] MEDS: Lisinopril 20 MG TAB PO SCH (20:45)
[2016-08-23] MEDS: Pravastatin Sodium 20 MG TAB PO SCH (20:46)
[2016-08-24] MEDS: Enoxaparin Sodium 30 MG/0.3 ML SYRINGE SC SCH (06:13)
[2016-08-24] MEDS: HYDROcodone/Acetaminophen 7.5/325 mg Tablet PO PRN (06:14)
[2016-08-24] MEDS: Cyclobenzaprine 10 MG TAB PO PRN ×2 (06:14→20:32)
[2016-08-24] MEDS: HumaLOG 300 UNITS/3 ML VIAL SC SCH ×3 (07:45→16:54)
[2016-08-24] MEDS: Famotidine 20 MG TAB PO SCH ×2 (09:45→20:30)
[2016-08-24] MEDS: Loratadine 10 MG TAB PO PRN (09:47)
[2016-08-24] MEDS: Oxybutynin Chloride 5 MG TAB PO SCH ×3 (09:47→20:31)
[2016-08-24] MEDS: Venlafaxine HCl 25 MG TAB PO SCH (09:48)
[2016-08-24] MEDS: Docusate (Surfak) 240 MG CAP PO SCH ×2 (09:50→20:30)
[2016-08-24] MEDS: Nystatin Cream 15 GM TUBE TOP SCH ×3 (09:51→20:29)
[2016-08-24] MEDS: Guaifenesin DM 100-10/5 ML UDCUP PO PRN (12:08)
[2016-08-24] MEDS: HYDROcodone/Acetaminophen 10/325 mg Tablet PO PRN ×2 (12:11→20:32)
[2016-08-24] MEDS: Levemir Flexpen 100 UNITS/ML PEN SC SCH (20:29)
[2016-08-24] MEDS: Gabapentin 300 MG CAP PO SCH (20:30)
[2016-08-24] MEDS: Lisinopril 20 MG TAB PO SCH (20:31)
[2016-08-24] MEDS: Pravastatin Sodium 20 MG TAB PO SCH (20:31)
[2016-08-25] MEDS: Cyclobenzaprine 10 MG TAB PO PRN ×3 (06:20→22:09)
[2016-08-25] MEDS: Enoxaparin Sodium 30 MG/0.3 ML SYRINGE SC SCH (06:20)
[2016-08-25] MEDS: HYDROcodone/Acetaminophen 7.5/325 mg Tablet PO PRN ×3 (06:20→22:09)
[2016-08-25] MEDS: HumaLOG 300 UNITS/3 ML VIAL SC SCH ×3 (07:21→16:25)
[2016-08-25] MEDS: Docusate (Surfak) 240 MG CAP PO SCH ×2 (08:14→20:38)
[2016-08-25] MEDS: Oxybutynin Chloride 5 MG TAB PO SCH ×3 (08:14→20:38)
[2016-08-25] MEDS: Famotidine 20 MG TAB PO SCH ×2 (08:14→20:38)
[2016-08-25] MEDS: Nystatin Cream 15 GM TUBE TOP SCH ×3 (08:14→20:39)
[2016-08-25] MEDS: Venlafaxine HCl 25 MG TAB PO SCH (08:15)
--- NOTE | 2016-08-25 18:12 | PRG ---
MEDICAL PROGRESS NOTE DATE OF SERVICE: 08/24/2016 SUBJECTIVE: The patient feels better with decreased back pain, still depressed, somewhat anxious. Her medical plan has minimal pain in the left leg at rest and decreased pain in the lower back and r ight knee. OBJECTIVE: VITAL SIGNS: Shows her temperature is 97.2, pulse 89, respirations 20, O2 sats 96% and blood pressu re 130/82. LUNGS: Clear. CARDIAC: Show regular rhythm. ABDOMEN: Soft and nontender. SKIN AND EXTREMITIES: Show no edema, but significant crepitance in the right knee. No erythema or tenderness of left lower back. ASSESSMENT AND PLAN: 1. Slowly healing distal left femur fracture, status post open reduction and internal fixation. 2. Degenerative disk disease and joint disease of the lumbar spine, awaiting lumbar sacral orthotic . 3. Degenerative joint disease of the knee, stable, tolerating physical therapy with increased stren gth. 4. Depression and anxiety, persistent. We will increase venlafaxine to 50 mg daily and monitor.
--- NOTE | 2016-08-25 18:12 | PRG ---
DATE OF SERVICE: 08/23/2016 SUBJECTIVE: The patient is feeling somewhat better with decreasing back pain and leg pain, able to tolerate physical therapy better. He is fairly compliant to diet with improved Accu-Cheks had resol kandis sore throat and cold appears to be having persistent, but depression as she is concerned about h er mental state and inability to maintain weight on her leg for another 3 weeks. OBJECTIVE: VITAL SIGNS: Her blood pressure is 150/68, pulse 85, temperature 97, O2 sats 92%. LUNGS: Clear. CARDIAC: Regular rhythm. EXTREMITIES: Left thigh shows no edema, warm, tenderness. Right knee shows some crepitance. BACK: Lower back shows some tenderness to palpation. ABDOMEN: Soft and nontender. Accu-Cheks are still uncontrolled, ranging from 116-285, but appear t o be improving. Physical therapy has requested possible lumbosacral Orthotics brace and this was di scussed with the patient and will be done. ASSESSMENT: 1. Slowly healing distal left inguinal distal left femur fracture status post open reduction food and beverage intern al fixation still nonweightbearing. 2. Stable degenerative disk disease and joint disease of the lower back with current pain with ther apy. We will order lumbosacral orthotic. 3. Degenerative joint disease of right knee and sent with excessive therapy. 4. Labile diabetes with only fair control secondary to persistent noncompliance. PLAN: Lumbosacral Orthotics. Continue PT with right leg and lower back. Social work administratio n consults on plans for continued care.
[2016-08-25] MEDS: Gabapentin 300 MG CAP PO SCH (20:37)
[2016-08-25] MEDS: Pravastatin Sodium 20 MG TAB PO SCH (20:38)
[2016-08-25] MEDS: Lisinopril 20 MG TAB PO SCH (20:38)
[2016-08-25] MEDS: Levemir Flexpen 100 UNITS/ML PEN SC SCH (20:40)
--- NOTE | 2016-08-26 00:52 | DIS ---
DATE OF ADMISSION: 08/17/2016 DATE OF DISCHARGE: 08/22/2016 FINAL DIAGNOSES: 1. Recurrent hypoxemia requiring supplemental O2 with improvement, but persistent despite significa nt diuresis. 2. Cardiomegaly and a large left pleural effusion, elevated BNP consistent with congestive heart fa ilure exacerbation. 3. Systolic regurgitation murmur, probably tricuspid but possibly mitral regurgitation. 4. Coronary artery disease, status post a distant angioplasty with subsequent nonischemic cardiomyo rg. 5. Distant history of cancer of the breast, greater 25 years ago with no evidence of recurrence. 6. Morbid obesity. Significantly decreased deconditioning. 7. Hypertension, severe, but controlled at this time on multiple medications. 8. Noncompliance to medication in particular diuretics with recurrent incontinence. 9. Recurrent anemia, possibly due to a slow gastrointestinal bleed from angiodysplasia, possibly ex acerbating her congestive heart failure. Patient also will possibly see a inside phone sales about [place] thoracentesis. Dr. Casey feels this required. HOSPITAL COURSE: The patient is a very pleasant 89-year-old white female with a history of coronary artery disease, status post myocardial infarction years ago and ischemic cardiomyopathy and then fo llowed by Dr. Casey as well as significant hypertension, who presented to the office with recurre nt shortness of breath and hypoxia at rest and on exertion. Chest x-ray showed cardiomegaly and lef t pleural effusion. BNP was elevated at 1313, creatinine was increased from 1.32 to 1.53. She had been only minimally compliant to her daily dose of a furosemide 40 mg at home, but had been noncompl iant to her medication Bystolic 10 mg daily, olmesartan 40 mg daily, and hydralazine 50 three times a day. She also had been compliant to her ferrous sulfate 325 daily, Protonix 40 daily. She had be en taking for the last several months since an acute GI bleed, found to be due to gastritis and nonb leeding colon polyp. Her hemoglobin had decreased from 11.2 several months after transfusion and ad mission to 8.6 on admission and therefore it is felt that possibly she had decompensated congestive heart failure exacerbated by recurrent anemia and was admitted to the hospital for gentle transfusio n of 1 unit of packed cells by aggressive diuresis with IV Lasix. This was done and she had a signi ficant diuresis on the IV Lasix; however, the dose had to be increased from 40 mg IV twice daily to 80 mg IV twice daily on this dose. Her BNP improved to 1044 and then to 828, which was close to her baseline. She had no dyspnea at rest, although, she remained hypoxic at rest, O2 sats of 88% at re st and decreasing 82 with any exertion. Chest x-ray continued to show a large left pleural effusion and cardiomegaly with minimal change. Her renal function did improve with creatinine decreasing fr om high 1.9-1.62 with diuresis and finally returning back to baseline of 1.39, BUN of 34, potassium remained stable at 3.7 with chloride 104, bicarbonate 30. She had an echocardiogram done and was fe lt to be stable to be discharged home to follow up with her manager human capital, Dr. Casey as an outpati ent, but required a home O2 as her sats as mentioned above at rest were 88% despite aggressive diure sis and had been stable like this for last 5 days. She was therefore set up for home O2, 2 liters a t all times. She will follow up with her manager human capital, Dr. Peyman Casey in 2 days. Her hemoglob in did increase with the transfusion from 8.6-10.1 and stabilized at 9.4. She was continued on Prot gabrielle and her ferrous sulfate 325 daily. She was continued only on low dose aspirin 81 daily, atorva statin 20 daily, continue on levothyroxine 150 mcg daily, Bystolic 10 daily, olmesartan 40 daily, po tassium 10 mEq daily, Restoril 15 nightly, and venlafaxine 75 daily, hydralazine 50 three times neelima y. She will follow up with myself in [address] Casey.
[2016-08-26] MEDS: Enoxaparin Sodium 30 MG/0.3 ML SYRINGE SC SCH (05:28)
[2016-08-26] MEDS: HumaLOG 300 UNITS/3 ML VIAL SC SCH ×3 (07:44→17:05)
[2016-08-26] MEDS: Nystatin Cream 15 GM TUBE TOP SCH ×3 (08:42→20:35)
[2016-08-26] MEDS: Famotidine 20 MG TAB PO SCH ×2 (08:42→20:34)
[2016-08-26] MEDS: Docusate (Surfak) 240 MG CAP PO SCH ×2 (08:42→20:34)
[2016-08-26] MEDS: Venlafaxine HCl 25 MG TAB PO SCH (08:43)
[2016-08-26] MEDS: HYDROcodone/Acetaminophen 7.5/325 mg Tablet PO PRN ×2 (08:43→17:51)
[2016-08-26] MEDS: Oxybutynin Chloride 5 MG TAB PO SCH ×3 (08:43→20:34)
[2016-08-26] MEDS: Cyclobenzaprine 10 MG TAB PO PRN ×2 (14:20→22:02)
[2016-08-26] MEDS: Gabapentin 300 MG CAP PO SCH (20:34)
[2016-08-26] MEDS: Levemir Flexpen 100 UNITS/ML PEN SC SCH (20:34)
[2016-08-26] MEDS: Lisinopril 20 MG TAB PO SCH (20:34)
[2016-08-26] MEDS: Pravastatin Sodium 20 MG TAB PO SCH (20:34)
--- NOTE | 2016-08-26 23:17 | PRG ---
DATE OF SERVICE: 08/26/2016 SUBJECTIVE: The patient is a 81-year-old white female with a fractured femur sent to [facility] for physical therapy and occupational therapy. She still remains nonweightbearing with marga little per her orthopedic surgeon, Dr. Mayers. She has no complaints today. PHYSICAL EXAMINATION: VITAL SIGNS: Today, reveal blood pressure is 134/74, pulse 79 to 81, respirations 18 to 20. O2 sat 97.4. GENERAL: This is a well-developed, well-nourished, somewhat obese white female in no apparent distr ess at this time. HEENT: Reveals normocephalic, nontraumatic cranium. Pupils are equally round and reactive. Extrao cular movements intact. Nose and throat are slightly dry. NECK: Supple, without masses, nodes or bruits. LUNGS: Chest is clear to auscultation, no rales, rhonchi, wheezes or cough is heard. HEART: Reveals a regular rate and rhythm without murmurs, gallops or rubs. ABDOMEN: Obese, soft, nontender, without organomegaly. Normal bowel sounds are noted. GENITOURINARY: Deferred. EXTREMITIES: Reveal no clubbing, cyanosis or edema. No significant redness, warmth or tenderness i s noted. ASSESSMENT: 1. Continued distal left femur fracture with continued nonweightbearing per orthopedic surgeon. 2. Degenerative joint disease. 3. Anxiety depressive disorder. 4. Diabetes, stable. 5. Diabetic neuropathy, stable. 6. Degenerative joint disease and disk disease. 7. Hypertension, which is well controlled. 8. Gastroesophageal reflux disease, stable. 9. Constipation. 10. Hyperlipidemia. 11. Anxiety depressive disorder. PLAN: 1. Continue to follow the patient's sugars as needed. 2. Continue to follow blood pressure. 3. Continue to encourage the patient to use her incentive spirometry. 4. Continue physical therapy and occupational therapy. 5. DVT and stress ulcer prophylaxis. 6. Decubitus precautions.
[2016-08-27] MEDS: Enoxaparin Sodium 30 MG/0.3 ML SYRINGE SC SCH (05:28)
[2016-08-27] MEDS: HYDROcodone/Acetaminophen 7.5/325 mg Tablet PO PRN ×3 (07:29→22:02)
[2016-08-27] MEDS: HumaLOG 300 UNITS/3 ML VIAL SC SCH ×3 (07:29→17:06)
[2016-08-27] MEDS: Nystatin Cream 15 GM TUBE TOP SCH ×3 (08:27→21:09)
[2016-08-27] MEDS: Docusate (Surfak) 240 MG CAP PO SCH ×2 (08:27→20:49)
[2016-08-27] MEDS: Venlafaxine HCl 25 MG TAB PO SCH (08:27)
[2016-08-27] MEDS: Oxybutynin Chloride 5 MG TAB PO SCH ×3 (08:27→20:48)
[2016-08-27] MEDS: Famotidine 20 MG TAB PO SCH ×2 (08:27→20:48)
[2016-08-27] MEDS: Cyclobenzaprine 10 MG TAB PO PRN ×2 (14:09→22:02)
--- NOTE | 2016-08-27 17:25 | PRG ---
DATE OF SERVICE: 08/27/2016 DATE OF ADMISSION: 06/26/2016 HISTORY OF PRESENT ILLNESS: Ms. Shepard is a 81-year-old very pleasant white female with a fractured femur sent to [facility] for physical therapy and occupational therapy. She remains weightb earing with transfers per her orthopedic surgeon, Dr. Mayers. She has no complaints today, except she would like to be outside, consistent, pleasant, but slightly breezy day. VITAL SIGNS: Reveal blood pressure is 169/79, pulse 71-74, respirations 18-20, O2 sat 93%-95% on ro om air, T-max is 98 degrees. PHYSICAL EXAMINATION: GENERAL: This is a well-developed, well-nourished, obese white female in no apparent distress at th is time. HEENT: Reveals normocephalic, nontraumatic cranium. Pupils are equally round and reactive. Extrao cular movements intact. Nose and those are somewhat dry. NECK: Supple, without masses, nodes or bruits. LUNGS: Chest clear to auscultation. No rales, no rhonchi, no wheezes and no cough is heard at this time. HEART: Reveals a regular rate and rhythm without murmurs, gallops or rubs. ABDOMEN: Obese, soft, nontender, without organomegaly. Normal bowel sounds were noted. No rebound or guarding is noted. : Deferred. EXTREMITIES: Reveal no clubbing, cyanosis or edema. No significant redness, warmth or significant swelling is noted in her left femur fracture site. ASSESSMENT: 1. Distal left femur fracture with continue non-weightbearing per orthopedic surgeon. 2. Diabetes, stable. 3. Diabetic neuropathy, stable. 4. Hypertension, well controlled. 5. Gastroesophageal reflux. 6. Hyperlipidemia. 7. Hypertension. 8. Degenerative joint disease. 9. Anxiety depressive disorder. PLAN: 1. Continue to follow the patient's sugars, Accu-Cheks every morning at least. 2. Continue to follow blood pressure. 3. Continue encourage the patient using incentive spirometer. 4. Continue physical therapy and occupational therapy. 5. Continued deep venous thrombosis and stress ulcer prophylaxis. 6. Continue decubitus precautions.
[2016-08-27] MEDS: Pravastatin Sodium 20 MG TAB PO SCH (20:48)
[2016-08-27] MEDS: Gabapentin 300 MG CAP PO SCH (20:49)
[2016-08-27] MEDS: Lisinopril 20 MG TAB PO SCH (20:49)
[2016-08-27] MEDS: Levemir Flexpen 100 UNITS/ML PEN SC SCH (20:51)
[2016-08-28] MEDS: Enoxaparin Sodium 30 MG/0.3 ML SYRINGE SC SCH (06:08)
[2016-08-28] MEDS: Cyclobenzaprine 10 MG TAB PO PRN ×2 (06:10→12:24)
[2016-08-28] MEDS: HYDROcodone/Acetaminophen 7.5/325 mg Tablet PO PRN ×2 (06:11→12:24)
[2016-08-28] MEDS: HumaLOG 300 UNITS/3 ML VIAL SC SCH ×3 (07:47→16:55)
[2016-08-28] MEDS: Nystatin Cream 15 GM TUBE TOP SCH ×3 (08:23→20:44)
[2016-08-28] MEDS: Loratadine 10 MG TAB PO PRN (08:24)
[2016-08-28] MEDS: Oxybutynin Chloride 5 MG TAB PO SCH ×3 (08:24→20:44)
[2016-08-28] MEDS: Venlafaxine HCl 25 MG TAB PO SCH (08:24)
[2016-08-28] MEDS: Docusate (Surfak) 240 MG CAP PO SCH ×2 (08:25→20:42)
[2016-08-28] MEDS: Famotidine 20 MG TAB PO SCH ×2 (08:25→20:42)
--- NOTE | 2016-08-28 09:50 | PRG ---
DATE OF SERVICE: 08/28/2016 SUBJECTIVE: The patient feels well, lying in bed. She had minimal pain in the lower back. She has been up in the chair 4-5 hours a day for the last several days over the weekend, has not been havin g physical therapy; however. The patient also had labile glucose in the morning with hypoglycemia 2 days ago when did not have a snack and then hyperglycemia when she did have a snack. Her Accu-Chek s during the day have been fairly stable. OBJECTIVE: Shows Accu-Cheks range from 63 yesterday morning to 271 this morning and 118 to 150-160 during the day. Vital signs show blood pressure 136/63, pulse 86, afebrile, O2 saturation is 95%. Lungs are clear. Cardiac examination shows regular rhythm. ASSESSMENT: Labile glucose, possibly due to excessive nighttime Levemir. PLAN: 1. Decrease Levemir to 40 units at night and continue with no snacks at night. Monitor Accu-Cheks. 2. Decreased back pain with minimal exercise, but has not been doing PT and apparently cannot have lumbar sacral brace until discharge because of financial insurance rules. 3. Still nonweightbearing for left distal femur fracture status post open reduction and internal fi xation 9 weeks after surgery. We will discuss with surgeon about a repeat x-ray and hopefully parti al weight bearing earlier than next week as patient is running out of her [facility] days.
--- NOTE | 2016-08-28 20:21 | RAD ---
LEFT FEMUR RADIOGRAPHS TWO VIEWS: Date: 08-28-16 Provided Clinical History: Left leg pain. FINDINGS: No comparison exam. Changes of left total knee arthroplasty demonstrated without evidence for hardw are complication. Lateral side plate and screw fixation of distal femoral diaphyseal region fractur e is noted. No evidence for hardware loosening or migration. Persistent fracture lucencies are not ed. The cranial most screw associated with the distal femoral metaphysis is proud from the plate heredia rface by about 5-6 mm, the chronicity of which is not certain. IMPRESSION: Post-operative and post traumatic changes involving the left distal femur as above. POS: BIJAL
[2016-08-28] MEDS: Levemir Flexpen 100 UNITS/ML PEN SC SCH (20:42)
[2016-08-28] MEDS: Gabapentin 300 MG CAP PO SCH (20:42)
[2016-08-28] MEDS: Lisinopril 20 MG TAB PO SCH (20:43)
[2016-08-28] MEDS: Pravastatin Sodium 20 MG TAB PO SCH (20:44)
[2016-08-28] MEDS: HYDROcodone/Acetaminophen 10/325 mg Tablet PO PRN (20:46)
[2016-08-29] MEDS: Enoxaparin Sodium 30 MG/0.3 ML SYRINGE SC SCH (06:20)
[2016-08-29] MEDS: Cyclobenzaprine 10 MG TAB PO PRN ×3 (06:20→20:49)
[2016-08-29] MEDS: HYDROcodone/Acetaminophen 7.5/325 mg Tablet PO PRN ×2 (06:20→13:04)
[2016-08-29] MEDS: HumaLOG 300 UNITS/3 ML VIAL SC SCH ×3 (07:57→16:59)
[2016-08-29] MEDS: Nystatin Cream 15 GM TUBE TOP SCH ×3 (09:26→20:48)
[2016-08-29] MEDS: Venlafaxine HCl 25 MG TAB PO SCH (09:26)
[2016-08-29] MEDS: Oxybutynin Chloride 5 MG TAB PO SCH ×3 (09:27→20:48)
[2016-08-29] MEDS: Famotidine 20 MG TAB PO SCH ×2 (09:27→20:47)
[2016-08-29] MEDS: Docusate (Surfak) 240 MG CAP PO SCH ×2 (09:27→20:46)
[2016-08-29] MEDS: Loratadine 10 MG TAB PO PRN (09:27)
[2016-08-29] MEDS: Gabapentin 300 MG CAP PO SCH (20:47)
[2016-08-29] MEDS: Lisinopril 20 MG TAB PO SCH (20:47)
[2016-08-29] MEDS: Levemir Flexpen 100 UNITS/ML PEN SC SCH (20:47)
[2016-08-29] MEDS: Pravastatin Sodium 20 MG TAB PO SCH (20:48)
[2016-08-29] MEDS: HYDROcodone/Acetaminophen 10/325 mg Tablet PO PRN (20:49)
[2016-08-30] MEDS: Enoxaparin Sodium 30 MG/0.3 ML SYRINGE SC SCH (06:32)
[2016-08-30] MEDS: HYDROcodone/Acetaminophen 7.5/325 mg Tablet PO PRN ×2 (06:33→13:21)
[2016-08-30] MEDS: Cyclobenzaprine 10 MG TAB PO PRN (06:33)
[2016-08-30] MEDS: HumaLOG 300 UNITS/3 ML VIAL SC SCH ×3 (07:50→16:49)
--- NOTE | 2016-08-30 08:16 | PRG ---
DATE OF SERVICE: 08/29/2016 SUBJECTIVE: The patient is a 81-year-old unfortunate white female who had fallen, suffered a fractu re of the left distal femur greater than 2 months ago, status post open reduction internal fixation who has been in jail since that time with therapy, but has not been released for weight b earing on her left femur and has shown poor healing on visit last month. Repeat x-ray is done today at the request of the patient in order to hopefully speed her healing process. OBJECTIVE: Shows her to have a blood pressure 140/60, temperature 98, pulse 84, respirations 20, af ebrile. LABORATORY: Shows white count 6600, hematocrit 28, hemoglobin 9. Accu-Cheks have been elevated abo ve 200, 216 to 253, 333. The patient was noncompliant to diet yesterday with a chocolate shake. Repeat x-ray of the left femur was reviewed by the radiologist, Dr. Cristhian Navarro, she showed no evidenc e of any healing and with stable hardware. This was reviewed also by her surgeon, Dr. Block at [facility] who agreed that there appeared to be no evidence of callus formation and still was fear ful of having weight being placed. ASSESSMENT: 1. Poorly healing left femur fracture status post open reduction and internal fixation greater than 2 months ago. 2. Poorly controlled diabetes secondary to noncompliance. PLAN: 1. Obtain CT scan of the femur and vitamin D see if there is any intrinsic bowel disease. 2. Stress compliance to diet. 3. Discuss possible discharge home with family and patient as insurance will not pay for her to be in a skilled if she cannot do therapy which appears to be not possible at this time.
[2016-08-30] MEDS: Famotidine 20 MG TAB PO SCH ×2 (08:39→20:29)
[2016-08-30] MEDS: Nystatin Cream 15 GM TUBE TOP SCH ×3 (08:39→20:30)
[2016-08-30] MEDS: Docusate (Surfak) 240 MG CAP PO SCH ×2 (08:39→20:29)
[2016-08-30] MEDS: Oxybutynin Chloride 5 MG TAB PO SCH ×3 (08:40→20:31)
[2016-08-30] MEDS: Venlafaxine HCl 25 MG TAB PO SCH (08:40)
[2016-08-30] MEDS: Guaifenesin DM 100-10/5 ML UDCUP PO PRN (08:40)
--- NOTE | 2016-08-30 15:32 | CT ---
CT OF THE LEFT FEMUR: COMPARISON: 08/28/16 radiographs. CLINICAL HISTORY: Left lower extremity pain status post ORIF. FINDINGS: There is extensive beam-hardening artifact from plate and screw fixation of the mid to distal femur. Obliquely oriented, comminuted fracture lucency with approximately width medial displacement o f major fracture fragment present involving the distal left femoral diaphysis. The previously descr ibed partially extracted screw at the level of the distal femur, laterally, is grossly stable to pre ceding radiograph. It is difficult to reliably assess due to the extensive beam-hardening artifact. Otherwise, no obvious intramedullary lucency about this screw to indicate significant loosening. Incidental note of bilateral knee prostheses. IMPRESSION: Fixated comminuted predominantly obliquely oriented distal left femoral fracture with plate and scre w fixation. A previously described mildly extracted distal femoral screw is grossly stable in confi guration comparing to prior radiographs, but this is difficult to reliably assess due to the extensi ve degree of beam hardening from the metallic hardware. No obvious, intramedullary lucency of signi ficance about this screw to indicate additional loosening. As necessary, continued radiographic fol lowup may be obtained. POS: CET
[2016-08-30] MEDS: Gabapentin 300 MG CAP PO SCH (20:29)
[2016-08-30] MEDS: Levemir Flexpen 100 UNITS/ML PEN SC SCH (20:29)
[2016-08-30] MEDS: Lisinopril 20 MG TAB PO SCH (20:30)
[2016-08-30] MEDS: HYDROcodone/Acetaminophen 10/325 mg Tablet PO PRN (20:31)
[2016-08-30] MEDS: Pravastatin Sodium 20 MG TAB PO SCH (20:31)
[2016-08-31] MEDS: Enoxaparin Sodium 30 MG/0.3 ML SYRINGE SC SCH (05:48)
[2016-08-31] MEDS: HYDROcodone/Acetaminophen 7.5/325 mg Tablet PO PRN ×2 (05:49→14:35)
[2016-08-31] MEDS: HumaLOG 300 UNITS/3 ML VIAL SC SCH ×3 (07:40→16:38)
[2016-08-31] MEDS: Famotidine 20 MG TAB PO SCH ×2 (08:30→20:27)
[2016-08-31] MEDS: Docusate (Surfak) 240 MG CAP PO SCH ×2 (08:30→20:27)
[2016-08-31] MEDS: Nystatin Cream 15 GM TUBE TOP SCH ×3 (08:31→20:28)
[2016-08-31] MEDS: Venlafaxine HCl 25 MG TAB PO SCH (08:31)
[2016-08-31] MEDS: Oxybutynin Chloride 5 MG TAB PO SCH ×3 (08:31→20:27)
--- NOTE | 2016-08-31 19:06 | PRG ---
DATE OF SERVICE: 08/31/2016 SUBJECTIVE: The patient is resting well. No complaints of rest, had a talk with family about disch arge planning as she is still unable to bear weight on her left leg per recommendations from orthope dic surgeon, but is cooperating with other modalities and strength in her right leg. CT scan done yesterday showed fixated comminuted obliquely oriented distal left femur fracture with mildly extracted distal femur screw in lobules slowly obvious loosening, vitamin D level is pending per recommendation of Orthopedic surgeon. OBJECTIVE: LUNGS: Clear. CARDIAC: Regular rhythm. ABDOMEN: Soft and nontender. VITAL SIGNS: Blood pressure 145/66, temperature 97, pulse 84, respirations 16, O2 sats 96%. Abdome n is soft and nontender. Skin and extremities display no edema, clubbing, cyanosis. NEUROLOGICAL: Intact. ASSESSMENT: Slowly resolving distal femur fracture status post open reduction and internal fixation , stable degenerative disk disease, poorly controlled diabetes secondary to noncompliance kristi woods. PLAN: Await follow up with orthopedic surgeon next week and make plans for discharge after that Eder almaraz discussed with the son who will discuss with two sisters and the patient.
[2016-08-31] MEDS: Cyclobenzaprine 10 MG TAB PO PRN (20:26)
[2016-08-31] MEDS: diphenhydrAMINE HCl 25 MG CAP PO PRN (20:26)
[2016-08-31] MEDS: Pravastatin Sodium 20 MG TAB PO SCH (20:26)
[2016-08-31] MEDS: HYDROcodone/Acetaminophen 10/325 mg Tablet PO PRN (20:26)
[2016-08-31] MEDS: Gabapentin 300 MG CAP PO SCH (20:27)
[2016-08-31] MEDS: Lisinopril 20 MG TAB PO SCH (20:27)
[2016-08-31] MEDS: Levemir Flexpen 100 UNITS/ML PEN SC SCH (20:28)
[2016-09-01] MEDS: Enoxaparin Sodium 30 MG/0.3 ML SYRINGE SC SCH (06:07)
[2016-09-01] MEDS: HumaLOG 300 UNITS/3 ML VIAL SC SCH ×3 (07:30→16:30)
[2016-09-01] MEDS: Venlafaxine HCl 25 MG TAB PO SCH (08:27)
[2016-09-01] MEDS: Oxybutynin Chloride 5 MG TAB PO SCH ×3 (08:27→20:29)
[2016-09-01] MEDS: Nystatin Cream 15 GM TUBE TOP SCH ×3 (08:28→20:27)
[2016-09-01] MEDS: Famotidine 20 MG TAB PO SCH ×2 (08:28→20:29)
[2016-09-01] MEDS: Docusate (Surfak) 240 MG CAP PO SCH ×2 (08:28→20:28)
[2016-09-01] MEDS: HYDROcodone/Acetaminophen 7.5/325 mg Tablet PO PRN (08:57)
--- NOTE | 2016-09-01 11:05 | PRG ---
DATE OF SERVICE: 09/01/2016 SUBJECTIVE: The patient lying in bed, feels well. No complaints of pain, nausea, vomiting, shortne ss of breath, abdominal pain. Has not been ambulating. Has been refusing to get up out of the bed out of confusion. OBJECTIVE: Shows blood pressure 114/55, pulse is 80, temperature 97.1, 02 sats 95%. Accu-Cheks morteza w still elevated at 170 to 280, but patient has been noncompliant to diet. ASSESSMENT: 1. Poor healing left distal femur fracture, status post open reduction and internal fixation with f [place] up with Dr. Block 09/07 2. Poorly controlled diabetes secondary to noncompliance with no complications. 3. Degenerative disk disease of the back with minimal pain at rest. 4. Degenerative joint disease of the right knee, exacerbated by the therapy. PLAN: Discontinue therapy until able to be at least partial weightbearing left knee. Arrange for d ischarge to [facility]illed [facility] after seen by orthopedic surgeon.
[2016-09-01 15:35] VITALS: BMI 37.2
[2016-09-01] MEDS: Levemir Flexpen 100 UNITS/ML PEN SC SCH (20:27)
[2016-09-01] MEDS: Pravastatin Sodium 20 MG TAB PO SCH (20:28)
[2016-09-01] MEDS: diphenhydrAMINE HCl 25 MG CAP PO PRN (20:28)
[2016-09-01] MEDS: HYDROcodone/Acetaminophen 10/325 mg Tablet PO PRN (20:28)
[2016-09-01] MEDS: Cyclobenzaprine 10 MG TAB PO PRN (20:28)
[2016-09-01] MEDS: Lisinopril 20 MG TAB PO SCH (20:29)
[2016-09-01] MEDS: Gabapentin 300 MG CAP PO SCH (20:29)
[2016-09-02] MEDS: Enoxaparin Sodium 30 MG/0.3 ML SYRINGE SC SCH (06:20)
[2016-09-02] MEDS: HumaLOG 300 UNITS/3 ML VIAL SC SCH ×3 (08:25→16:15)
[2016-09-02] MEDS: Nystatin Cream 15 GM TUBE TOP SCH ×3 (08:25→20:42)
[2016-09-02] MEDS: Famotidine 20 MG TAB PO SCH ×2 (08:26→20:40)
[2016-09-02] MEDS: Venlafaxine HCl 25 MG TAB PO SCH (08:26)
[2016-09-02] MEDS: Oxybutynin Chloride 5 MG TAB PO SCH ×3 (08:26→20:40)
[2016-09-02] MEDS: Docusate (Surfak) 240 MG CAP PO SCH ×2 (08:27→20:42)
[2016-09-02] MEDS: HYDROcodone/Acetaminophen 7.5/325 mg Tablet PO PRN ×2 (11:13→20:41)
--- NOTE | 2016-09-02 17:21 | PRG ---
DATE OF SERVICE: 09/02/2016 SUBJECTIVE: Ms. Shepard is doing well. Denies any complaints, resting comfortably, tolerating her m edications. She is scheduled to see Orthopedics on and possibly be admitted to the assisted facility at [facility] from there as she has been recommended another 4 weeks of nonweigh tbearing secondary to nonhealing. OBJECTIVE: VITAL SIGNS: She is afebrile, heart rate is 86, respirations 18, blood pressure this morning was 17 1/69, but yesterday night it was 114/55 and yesterday morning 144/65. CARDIOVASCULAR: S1, S2 plus. RESPIRATORY: Normal vesicular breath sounds. ABDOMEN: Soft, nontender, bowel sounds heard in all quadrants. EXTREMITIES: Without cyanosis or clubbing. Peripheral pulses are palpable. IMPRESSION: 1. Hypertension, fluctuating control. Continue to monitor and adjust medications as needed. 2. Diabetes mellitus type 2. 3. Degenerative joint disease and degenerative disk disease and nonhealing and delayed healing of t he left distal femur fracture, status post surgery. PLAN: 1. Continue nonweightbearing status. 2. Encourage the need for compliance with diet. 3. Monitor blood pressure and adjust medications as needed. 4. Accu-Cheks with sliding scale coverage. 5. Deep venous thrombosis and stress ulcer prophylaxis. 6. Routine laboratory values.
[2016-09-02] MEDS: Levemir Flexpen 100 UNITS/ML PEN SC SCH (20:39)
[2016-09-02] MEDS: Cyclobenzaprine 10 MG TAB PO PRN (20:40)
[2016-09-02] MEDS: Gabapentin 300 MG CAP PO SCH (20:40)
[2016-09-02] MEDS: Lisinopril 20 MG TAB PO SCH (20:40)
[2016-09-02] MEDS: Pravastatin Sodium 20 MG TAB PO SCH (20:40)
[2016-09-02] MEDS: diphenhydrAMINE HCl 25 MG CAP PO PRN (20:40)
[2016-09-03] MEDS: Enoxaparin Sodium 30 MG/0.3 ML SYRINGE SC SCH (05:36)
[2016-09-03] MEDS: HumaLOG 300 UNITS/3 ML VIAL SC SCH ×3 (07:49→16:55)
[2016-09-03] MEDS: HYDROcodone/Acetaminophen 7.5/325 mg Tablet PO PRN ×2 (09:47→21:36)
[2016-09-03] MEDS: Nystatin Cream 15 GM TUBE TOP SCH ×3 (09:48→21:37)
[2016-09-03] MEDS: Venlafaxine HCl 25 MG TAB PO SCH (09:49)
[2016-09-03] MEDS: Docusate (Surfak) 240 MG CAP PO SCH ×2 (09:50→21:36)
[2016-09-03] MEDS: Oxybutynin Chloride 5 MG TAB PO SCH ×3 (09:50→21:35)
[2016-09-03] MEDS: Famotidine 20 MG TAB PO SCH ×2 (09:50→21:35)
--- NOTE | 2016-09-03 11:35 | PRG ---
DATE OF SERVICE: 09/03/2016. SUBJECTIVE: Ms. Shepard is doing the same. Denies any complaints except for some pain. She states that she really does not want to sit up in a chair today due to pain. She is aware of the risks of decreased mobilization. OBJECTIVE: VITAL SIGNS: She is afebrile, heart rate is 80, respirations are 18, blood pressure is 114/55. CARDIOVASCULAR: S1, S2 plus. RESPIRATORY: Normal vesicular breath sounds. ABDOMEN: Soft, nontender, bowel sounds heard in all quadrants, obese. EXTREMITIES: Without cyanosis or clubbing. LABORATORY VALUES: Blood sugars are 238, 233, 137, 106 and 209. IMPRESSION: 1. Nonhealing left distal femur fracture, status post surgery. 2. Hypertension, better today. 3. Diabetes mellitus type 2. 4. Degenerative joint disease. 5. Obesity. 6. Deconditioning. PLAN: 1. Continue nonweightbearing status. 2. Physical therapy. 3. Nutritional support. 4. Deep venous thrombosis and stress ulcer prophylaxes. 5. Decubitus precautions. 6. Heart healthy ADA diet. 7. Accu-Cheks with sliding scale coverage.
[2016-09-03] MEDS: Gabapentin 300 MG CAP PO SCH (21:35)
[2016-09-03] MEDS: diphenhydrAMINE HCl 25 MG CAP PO PRN (21:36)
[2016-09-03] MEDS: Pravastatin Sodium 20 MG TAB PO SCH (21:37)
[2016-09-03] MEDS: Lisinopril 20 MG TAB PO SCH (21:37)
[2016-09-03] MEDS: Levemir Flexpen 100 UNITS/ML PEN SC SCH (21:37)
[2016-09-03] MEDS: Cyclobenzaprine 10 MG TAB PO PRN (21:37)
[2016-09-04] MEDS: Enoxaparin Sodium 30 MG/0.3 ML SYRINGE SC SCH (05:35)
[2016-09-04] MEDS: HumaLOG 300 UNITS/3 ML VIAL SC SCH ×3 (07:49→17:07)
[2016-09-04] MEDS: Docusate (Surfak) 240 MG CAP PO SCH ×2 (08:29→20:01)
[2016-09-04] MEDS: Venlafaxine HCl 25 MG TAB PO SCH (08:29)
[2016-09-04] MEDS: Famotidine 20 MG TAB PO SCH ×2 (08:30→20:01)
[2016-09-04] MEDS: Oxybutynin Chloride 5 MG TAB PO SCH ×3 (08:30→20:01)
[2016-09-04] MEDS: Nystatin Cream 15 GM TUBE TOP SCH ×3 (08:31→20:01)
[2016-09-04] MEDS: HYDROcodone/Acetaminophen 7.5/325 mg Tablet PO PRN (08:35)
--- NOTE | 2016-09-04 09:42 | PRG ---
DATE OF SERVICE: 09/04/2016 SUBJECTIVE: Ms. Shepard is doing the same. Denies any complaints, resting comfortably. OBJECTIVE: VITAL SIGNS: She is afebrile, heart rate is 82, respirations 18, and blood pressure 131/60. CARDIOVASCULAR: S1, S2 plus. RESPIRATORY SYSTEM: Normal vesicular breath sounds. ABDOMEN: Soft, nontender, bowel sounds heard in all quadrants. EXTREMITIES: Without cyanosis or clubbing. IMPRESSION: 1. Nonhealing hip fracture. 2. Deconditioning. 3. Peripheral neuropathy. 4. Diabetes mellitus, uncontrolled. PLAN: 1. Continue therapy with orthopedic restrictions. She is supposed to be nonweightbearing for anoth er 4 weeks. 2. Recheck laboratory values in the morning. 3. 1800 calorie heart healthy diet. 4. Accu-Cheks with sliding scale coverage. 5. Orthopedic appointment on and possibly from there to [facility].
[2016-09-04] MEDS: Levemir Flexpen 100 UNITS/ML PEN SC SCH (19:59)
[2016-09-04] MEDS: HYDROcodone/Acetaminophen 10/325 mg Tablet PO PRN (20:00)
[2016-09-04] MEDS: Lisinopril 20 MG TAB PO SCH (20:00)
[2016-09-04] MEDS: Pravastatin Sodium 20 MG TAB PO SCH (20:00)
[2016-09-04] MEDS: diphenhydrAMINE HCl 25 MG CAP PO PRN (20:01)
[2016-09-04] MEDS: Cyclobenzaprine 10 MG TAB PO PRN (20:01)
[2016-09-04] MEDS: Gabapentin 300 MG CAP PO SCH (20:01)
[2016-09-05] MEDS: Enoxaparin Sodium 30 MG/0.3 ML SYRINGE SC SCH (05:12)
[2016-09-05 05:18] LABS: #Basophils 0.1 thou/uL (0.0-0.2); #Eosinphils 0.9 thou/uL (0.0-0.7); #Lymphocytes 2.1 thou/uL (1.20-3.40); #Monocytes 0.7 thou/uL (0.11-0.59); #Neutrophils 3.7 thou/uL (1.40-6.50); %Basophils 1.4 % (0.0-1.0); %Eosinophils 11.6 % (0.0-10.0); %Monocytes 9.8 % (0.0-10.0); Hematocrit 39.7 % (36.0-47.0); Mean Platelet Volume 6.7 fL (7.4-10.4); White Blood Cell (WBC) Count 7.5 thou/uL (4.8-10.8)
[2016-09-05 05:31] LABS: Anion Gap 12 mmol/L (10-20); BUN (Urea Nitrogen) 18 mg/dL (9.8-20.1); Calc. Creatinine Clearance 83 mL/min (70-130); Calcium 9.5 mg/dL (7.8-10.44); Carbon Dioxide 27 mmol/L (23-31); Chloride 104 mmol/L (98-107); Estimated GFR-MDRD 66
[2016-09-05] MEDS: HumaLOG 300 UNITS/3 ML VIAL SC SCH ×3 (07:47→17:07)
[2016-09-05] MEDS: Famotidine 20 MG TAB PO SCH ×2 (08:38→20:45)
[2016-09-05] MEDS: Docusate (Surfak) 240 MG CAP PO SCH ×2 (08:38→21:32)
[2016-09-05] MEDS: Nystatin Cream 15 GM TUBE TOP SCH ×3 (08:38→20:46)
[2016-09-05] MEDS: Venlafaxine HCl 25 MG TAB PO SCH (08:39)
[2016-09-05] MEDS: Oxybutynin Chloride 5 MG TAB PO SCH ×3 (08:39→20:45)
[2016-09-05] MEDS: HYDROcodone/Acetaminophen 7.5/325 mg Tablet PO PRN (08:41)
--- NOTE | 2016-09-05 13:25 | PRG ---
DATE OF SERVICE: 09/05/2016 SUBJECTIVE: Ms. Shepard is doing well. Denies any complaints, resting comfortably. She has an appo intment with her orthopedic surgeon on . The plan is probably for her to see the orthopedic surgeon and then go from there to [facility] for 4 weeks of stay, as she needs to be nonweightbearing for at least 4 more weeks according to records. OBJECTIVE: VITAL SIGNS: She is afebrile, heart rate is 71, respirations 18, blood pressure 133/60. CARDIOVASCULAR: S1, S2 plus. RESPIRATORY: Normal vesicular breath sounds. ABDOMEN: Soft, obese, nontender, bowel sounds heard in all quadrants. EXTREMITIES: Without cyanosis or clubbing. LABORATORY VALUES: White count is 7.5, H\T\H is 12.7 and 39.7, sodium 139, potassium 4.2, BUN and c reatinine is 18 and 0.83. Blood sugars are 128, 191, 73, 183. IMPRESSION: 1. Diabetes mellitus type 2. 2. Nonhealing hip fracture. 3. Peripheral neuropathy. 4. Deconditioning. PLAN: 1. Continue nonweightbearing status. 2. Follow up with orthopedic surgeon. 3. Accu-Cheks and sliding scale coverage. 4. DVT and stress ulcer prophylaxis. 5. Nutritional support.
[2016-09-05] MEDS: Gabapentin 300 MG CAP PO SCH (20:45)
[2016-09-05] MEDS: Pravastatin Sodium 20 MG TAB PO SCH (20:45)
[2016-09-05] MEDS: Levemir Flexpen 100 UNITS/ML PEN SC SCH (20:45)
[2016-09-05] MEDS: Cyclobenzaprine 10 MG TAB PO PRN (20:46)
[2016-09-05] MEDS: diphenhydrAMINE HCl 25 MG CAP PO PRN (20:46)
[2016-09-05] MEDS: Lisinopril 20 MG TAB PO SCH (20:46)
[2016-09-05] MEDS: HYDROcodone/Acetaminophen 10/325 mg Tablet PO PRN (20:46)
[2016-09-06] MEDS: Enoxaparin Sodium 30 MG/0.3 ML SYRINGE SC SCH (05:29)
[2016-09-06] MEDS: HumaLOG 300 UNITS/3 ML VIAL SC SCH ×3 (08:10→16:57)
[2016-09-06] MEDS: Venlafaxine HCl 25 MG TAB PO SCH (09:37)
[2016-09-06] MEDS: Docusate (Surfak) 240 MG CAP PO SCH ×2 (09:38→20:45)
[2016-09-06] MEDS: Oxybutynin Chloride 5 MG TAB PO SCH ×3 (09:38→20:46)
[2016-09-06] MEDS: Famotidine 20 MG TAB PO SCH ×2 (09:38→20:47)
[2016-09-06] MEDS: Loratadine 10 MG TAB PO PRN (09:43)
[2016-09-06] MEDS: Cyclobenzaprine 10 MG TAB PO PRN ×2 (09:43→20:47)
[2016-09-06] MEDS: Nystatin Cream 15 GM TUBE TOP SCH ×3 (09:43→20:47)
[2016-09-06] MEDS: HYDROcodone/Acetaminophen 7.5/325 mg Tablet PO PRN ×3 (09:44→20:45)
--- NOTE | 2016-09-06 14:22 | PRG ---
DATE OF SERVICE: 09/06/2016 SUBJECTIVE: Ms. Sinha is doing well. Denies any complaints. I spoke with the director of [facility] and the plan is to discharge her tomorrow and have her go follow up with Orthopedic Surgery and marga joel from there to go to [facility]. No other concerns or questions OBJECTIVE: VITAL SIGNS: She is afebrile, heart rate is 77, respiration is 20, blood pressure 131/60. CARDIOVASCULAR: S1, S2 plus. RESPIRATORY: Normal vesicular breath sounds. ABDOMEN: Soft, nontender, bowel sounds heard in all quadrants. EXTREMITIES: Without cyanosis or clubbing. IMPRESSION: 1. Nonhealing use left distal femoral fracture. 2. Diabetes mellitus type 2. 3. Hypertension. 4. Peripheral neuropathy. 5. Deconditioning. PLAN: 1. Continue physical therapy. 2. Continue nonweightbearing status. 3. Accu-Cheks a.c. coverage. 4. Heart healthy diet. 5. DVT and stress ulcer prophylaxis. 6. Discharge tomorrow to [facility].
[2016-09-06] MEDS: Gabapentin 300 MG CAP PO SCH (20:45)
[2016-09-06] MEDS: diphenhydrAMINE HCl 25 MG CAP PO PRN (20:46)
[2016-09-06] MEDS: Lisinopril 20 MG TAB PO SCH (20:47)
[2016-09-06] MEDS: Levemir Flexpen 100 UNITS/ML PEN SC SCH (20:47)
[2016-09-06] MEDS: Pravastatin Sodium 20 MG TAB PO SCH (20:47)
[2016-09-07] MEDS: Enoxaparin Sodium 30 MG/0.3 ML SYRINGE SC SCH (05:41)
[2016-09-07] MEDS: HumaLOG 300 UNITS/3 ML VIAL SC SCH ×2 (08:08→11:03)
[2016-09-07] MEDS: Docusate (Surfak) 240 MG CAP PO SCH (08:25)
[2016-09-07] MEDS: Famotidine 20 MG TAB PO SCH (08:27)
[2016-09-07] MEDS: Nystatin Cream 15 GM TUBE TOP SCH (08:27)
[2016-09-07] MEDS: Loratadine 10 MG TAB PO PRN (08:28)
[2016-09-07] MEDS: Cyclobenzaprine 10 MG TAB PO PRN (08:28)
[2016-09-07] MEDS: Venlafaxine HCl 25 MG TAB PO SCH (08:28)
[2016-09-07] MEDS: Oxybutynin Chloride 5 MG TAB PO SCH (08:28)
[2016-09-07] MEDS: HYDROcodone/Acetaminophen 7.5/325 mg Tablet PO PRN (08:29)
[2016-09-07 08:37] VITALS: BP 149/68
[2016-09-07 13:12] VITALS: TEMP 98.8
--- NOTE | 2016-09-07 23:28 | DIS ---
DATE OF ADMISSION: 06/26/2016 DATE OF DISCHARGE: 09/07/2016 PRINCIPAL DIAGNOSES: 1. Left distal femur fracture with delayed healing. 2. Diabetes mellitus type 2. 3. Hypertension. 4. Peripheral neuropathy. 5. Deconditioning. 6. Dyslipidemia. 7. Degenerative joint disease. COMPLICATIONS: None. ADVERSE REACTIONS: None. PROCEDURES: None. CONSULTATIONS: None. HOSPITAL COURSE: The patient was after being admitted to [facility] for distal femur fracture, which required open reduction and internal fixation. She has been transferred to therapy. Unfortunately, the leg has not been healing. She has had outpatient follow with Orthopedic Surger y, they have recommended continued nonweightbearing status. She is also be noncompliant with her di et and her sugars have been fluctuating. She was deemed that since she has to remain nonweightbeari ng for another 4 weeks, the plan is to see the orthopedic surgeon today and then go to [facility] for 4 weeks and then be reevaluated by Orthopedics. She denies any complaints. She has been having pain. She denies any fever or chills. PHYSICAL EXAMINATION: VITAL SIGNS: On the day of discharge, she is afebrile, heart rate is 78, respirationS 20, blood pre ssure 149/68. CARDIOVASCULAR: S1, S2 plus. RESPIRATORY: Normal vesicular breath sounds. ABDOMEN: Soft, obese, and nontender. Bowel sounds heard in all quadrants. EXTREMITIES: Without cyanosis or clubbing. LABORATORY DATA: Last laboratory values shows white count of 7.5, H\T\H of 12.7 and 39.7, this was on September 05. Blood sugars have been 164, 201, and 218. Sodium 139, potassium 4.2, BUN and creati nine is 18 and 0.83. DISCHARGE MEDICATIONS: Tylenol 650 mg q.6 hours p.r.n., Higden 7.5/325 one tablet q.6 hours p.r.n., Norvasc 10 mg daily, aspirin 81 mg daily, Flexeril 10 mg t.i.d. p.r.n., Lovenox 30 mg subcutaneous d aily, gabapentin 300 mg daily, Levemir 40 units at night and Humalog 13 units subcu b.i.d. and 18 un its at lunch, Lisinopril 20 mg daily, loratadine 10 mg daily, oxybutynin 5 mg t.i.d., Protonix 40 mg daily, Pravachol 40 mg daily, Effexor 50 mg daily. She will be followed by Dr. Ventura at [facility], 1800 calorie heart healthy diet. Accu-Cheks with sliding scale coverage. I will be covering for him until he comes back from vacati on and outpatient follow up with Orthopedic Surgery. Discussed with the patient in detail. Total time spent on this discharge 32 minutes.
== END 2016-09-07 12:20 | DRG 561 ==
LOC: NAV ACUTE 15:50
PROVIDERS: ADMIT Internal Medicine; ATTEND Internal Medicine
DX: S72.402G Unspecified fracture of lower end of left femur, subsequent encounter for closed fracture with delayed healing (principal); N39.0 Urinary tract infection, site not specified; T83.511A Infection and inflammatory reaction due to indwelling urethral catheter, initial encounter; E11.40 Type 2 diabetes mellitus with diabetic neuropathy, unspecified; E11.621 Type 2 diabetes mellitus with foot ulcer; I10 Essential (primary) hypertension; M51.36 Other intervertebral disc degeneration, lumbar region; B37.3 Candidiasis of vulva and vagina; E11.65 Type 2 diabetes mellitus with hyperglycemia; W18.30XD Fall on same level, unspecified, subsequent encounter; Z79.4 Long term (current) use of insulin; E66.01 Morbid (severe) obesity due to excess calories; Z68.37 Body mass index [BMI] 37.0-37.9, adult; E78.5 Hyperlipidemia, unspecified; K21.9 Gastro-esophageal reflux disease without esophagitis; F41.8 Other specified anxiety disorders; K59.00 Constipation, unspecified; M17.11 Unilateral primary osteoarthritis, right knee; J02.9 Acute pharyngitis, unspecified; B34.9 Viral infection, unspecified; B95.2 Enterococcus as the cause of diseases classified elsewhere; Z91.11 Patient's noncompliance with dietary regimen; R12 Heartburn; M62.830 Muscle spasm of back; J30.9 Allergic rhinitis, unspecified; J06.9 Acute upper respiratory infection, unspecified; L97.529 Non-pressure chronic ulcer of other part of left foot with unspecified severity; B96.89 Other specified bacterial agents as the cause of diseases classified elsewhere; B96.1 Klebsiella pneumoniae [K. pneumoniae] as the cause of diseases classified elsewhere; E11.649 Type 2 diabetes mellitus with hypoglycemia without coma
CPT/HCPCS: 36415; 36416; 71010; 72131; 80048; 80053; 81001; 81003; 81015; 82306; 85025; 87077; 87086; 87186; 87430; G8978-GP-CK; G8979-GP-CI; J1650; J1815; Q0162

== ENCOUNTER 2016-09-18 16:15 | Outpatient (CLI) | payer MEDICARE, BC ==
[2016-09-18 17:02] LABS: Bilirubin Negative (Negative); Blood, Urine Small (Negative); Glucose, Urine (Dipstick) Negative (Negative); Ketone, Urine Negative (Negative); Nitrite Positive (Negative); Protein, Urine (Dipstick) 30 mg/dL (Neg-Trace); Urobilinogen 0.2 mg/dL (0.2-1.0)
[2016-09-18 17:10] LABS: Bacteria/HPF 3+ HPF (None Seen)
== END 2016-09-18 16:16 | disposition home or self-care (01) ==
LOC: NAV LABSP 16:15
PROVIDERS: ATTEND Family Medicine
DX: R39.198 Other difficulties with micturition (principal)
CPT/HCPCS: 81001; 87077; 87086; 87186

== ENCOUNTER 2016-10-05 07:22 | Outpatient (CLI) | payer MEDICARE, BC ==
[2016-10-05 09:28] LABS: Bilirubin Negative (Negative); Blood, Urine Negative (Negative); Glucose, Urine (Dipstick) Negative (Negative); Ketone, Urine Negative (Negative); Nitrite Negative (Negative); Protein, Urine (Dipstick) Negative (Neg-Trace); Urobilinogen 0.2 mg/dL (0.2-1.0)
[2016-10-05 10:00] LABS: Bacteria/HPF Rare-Few HPF (None Seen); RBC/HPF 0-3 HPF (0-3); Squamous Epithelial 0-3 HPF (0-3)
== END 2016-10-05 07:23 | disposition home or self-care (01) ==
LOC: NAV LABSP 07:22
PROVIDERS: ATTEND Internal Medicine
DX: N39.0 Urinary tract infection, site not specified (principal)
CPT/HCPCS: 81003; 81015; 87077; 87086; 87186

== ENCOUNTER 2016-11-01 07:12 | Outpatient (CLI) | payer MEDICARE, BC ==
[2016-11-01 08:13] LABS: Bilirubin Negative (Negative); Blood, Urine Negative (Negative); Clarity Clear (Clear); Glucose, Urine (Dipstick) 500 mg/dL (Negative); Leukocyte Small (Negative); Nitrite Negative (Negative); Protein, Urine (Dipstick) Negative (Neg-Trace); Urobilinogen 0.2 mg/dL (0.2-1.0); pH, Urine 5.5 (5.0-9.0)
[2016-11-01 08:24] LABS: Bacteria/HPF Rare-Few HPF (None Seen); RBC/HPF 0-3 HPF (0-3); Squamous Epithelial 0-3 HPF (0-3)
[2016-11-01 08:25] LABS: Renal Epithelial 0-3 HPF (0-3)
== END 2016-11-01 07:13 | disposition home or self-care (01) ==
LOC: NAV LABSP 07:12
PROVIDERS: ATTEND Internal Medicine
DX: R30.9 Painful micturition, unspecified (principal)
CPT/HCPCS: 81001

== ENCOUNTER 2016-11-02 07:19 | Outpatient (CLI) | payer MEDICARE, BC ==
[2016-11-02 08:36] LABS: Blood, Urine Negative (Negative); Clarity Clear (Clear); Glucose, Urine (Dipstick) Negative (Negative); Leukocyte Trace (Negative); Nitrite Negative (Negative); Protein, Urine (Dipstick) Negative (Neg-Trace); Urobilinogen 0.2 mg/dL (0.2-1.0); pH, Urine 5.5 (5.0-9.0)
[2016-11-02 09:06] LABS: Bilirubin Negative (Negative); Icto Negative (Negative)
[2016-11-02 09:11] LABS: RBC/HPF None Seen HPF (0-3)
[2016-11-02 09:12] LABS: Bacteria/HPF Rare-Few HPF (None Seen)
[2016-11-02 09:13] LABS: Other Microscopic Description NO
== END 2016-11-02 07:20 | disposition home or self-care (01) ==
LOC: NAV LABSP 07:19
PROVIDERS: ATTEND Internal Medicine
DX: R82.99 Other abnormal findings in urine (principal)
CPT/HCPCS: 81001; 87086

== ENCOUNTER 2017-01-04 07:24 | Outpatient (CLI) | payer MEDICARE, BC ==
[2017-01-04 09:48] LABS: Bilirubin Negative (Negative); Blood, Urine Small (Negative); Clarity Slightly Cloudy (Clear); Glucose, Urine (Dipstick) Negative (Negative); Leukocyte Large (Negative); Nitrite Negative (Negative); Protein, Urine (Dipstick) Negative (Neg-Trace); Specific Gravity, Urine 1.015 (1.005-1.030); Urobilinogen 0.2 mg/dL (0.2-1.0)
[2017-01-04 10:26] LABS: Bacteria/HPF 3+ HPF (None Seen); RBC/HPF 0-3 HPF (0-3); WBC/HPF 21-50 HPF (0-3)
[2017-01-04 10:27] LABS: Other Microscopic Description 3+GLITTER CELLS
== END 2017-01-04 07:25 | disposition home or self-care (01) ==
LOC: NAV LABSP 07:24
PROVIDERS: ATTEND Internal Medicine
DX: N39.0 Urinary tract infection, site not specified (principal)
CPT/HCPCS: 81001; 87077; 87086; 87186

== ENCOUNTER 2017-01-26 07:12 | Outpatient (CLI) | payer MEDICARE, BC ==
[2017-01-26 08:51] LABS: Bilirubin Negative (Negative); Blood, Urine Small (Negative); Clarity Cloudy (Clear); Glucose, Urine (Dipstick) Negative (Negative); Leukocyte Large (Negative); Nitrite Positive (Negative); Protein, Urine (Dipstick) Negative (Neg-Trace); Specific Gravity, Urine 1.015 (1.005-1.030); Urobilinogen 0.2 mg/dL (0.2-1.0)
[2017-01-26 09:04] LABS: Bacteria/HPF 3+ HPF (None Seen); Other Microscopic Description NO; RBC/HPF 0-3 HPF (0-3); Squamous Epithelial 0-3 HPF (0-3); WBC/HPF 21-50 HPF (0-3)
== END 2017-01-26 07:13 | disposition home or self-care (01) ==
LOC: NAV LABSP 07:12
PROVIDERS: ATTEND Internal Medicine
DX: N39.0 Urinary tract infection, site not specified (principal)
CPT/HCPCS: 81001; 87077; 87086; 87186

== ENCOUNTER 2017-02-12 10:52 | Outpatient (CLI) | payer MEDICARE, BC | END 2017-02-12 10:53 | disposition home or self-care (01) | LOC: NAV LABSP 10:52 | PROVIDERS: ATTEND Internal Medicine | DX: N39.0 Urinary tract infection, site not specified (principal) | CPT/HCPCS: 87077; 87086; 87186 ==

== ENCOUNTER 2017-02-28 12:24 | Outpatient (CLI) | payer MEDICARE, BC ==
[2017-02-28 13:57] LABS: Bilirubin Negative (Negative); Blood, Urine Trace (Negative); Clarity Slightly Cloudy (Clear); Glucose, Urine (Dipstick) 100 mg/dL (Negative); Leukocyte Large (Negative); Nitrite Positive (Negative); Protein, Urine (Dipstick) 30 mg/dL (Neg-Trace); Urobilinogen 0.2 mg/dL (0.2-1.0); pH, Urine 5.5 (5.0-9.0)
[2017-02-28 14:19] LABS: Bacteria/HPF 2+ HPF (None Seen); RBC/HPF 0-3 HPF (0-3); Squamous Epithelial 0-3 HPF (0-3); Transitional Epithelial 0-3 HPF (0-3); WBC/HPF 21-50 HPF (0-3)
[2017-02-28 14:20] LABS: Other Microscopic Description NO
== END 2017-02-28 12:25 | disposition home or self-care (01) ==
LOC: NAV LABSP 12:24
PROVIDERS: ATTEND Internal Medicine
DX: N39.0 Urinary tract infection, site not specified (principal)
CPT/HCPCS: 81003; 81015; 87077; 87086; 87186

== ENCOUNTER 2017-05-28 14:24 | Emergency (ER) | payer MEDICARE, BC ==
[2017-05-28 15:07] LABS: ALT (SGPT) 18 U/L (8-55); AST (SGOT) 25 U/L (5-34); Albumin 4.1 g/dL (3.4-4.8); Alkaline Phosphatase 98 U/L (40-150); Anion Gap 14 mmol/L (10-20); BUN (Urea Nitrogen) 15 mg/dL (9.8-20.1); Bilirubin, Total 0.3 mg/dL (0.2-1.2); Calc. Creatinine Clearance 0 mL/min (70-130); Calcium 10.5 mg/dL (7.8-10.44); Carbon Dioxide 29 mmol/L (23-31); Chloride 102 mmol/L (98-107); Estimated GFR-MDRD 63; Globulin 3.1 g/dL (2.4-3.5); Glucose 152 mg/dL (83-110); Potassium 4.2 mmol/L (3.5-5.1); Protein, Total 7.2 g/dL (6.0-8.3); Sodium 141 mmol/L (136-145)
[2017-05-28 15:11] LABS: INR-International Normal Ratio 0.9; PTT 29.7 SEC (22.9-36.1); Prothrombin Time 12.7 SEC (12.0-14.7)
--- NOTE | 2017-05-28 15:12 | RAD ---
PORTABLE CHEST ONE VIEW: 05/28/2017 2:54 p.m. HISTORY: An 82-year-old female with headache. COMPARISON: 06/29/2016 FINDINGS: There is continued elevation of the right hemidiaphragm. The heart size is normal. No focal areas of consolidation, pneumothorax, krista pulmonary edema, or pleural effusions are seen. There are vera ateral total shoulder arthroplasties. IMPRESSION: No acute process. POS: [facility]
[2017-05-28 15:13] LABS: #Basophils 0.1 thou/uL (0.0-0.2); #Eosinphils 0.2 thou/uL (0.0-0.7); #Monocytes 0.7 thou/uL (0.11-0.59); #Neutrophils 5.3 thou/uL (1.40-6.50); %Basophils 0.7 % (0.0-1.0); %Eosinophils 2.9 % (0.0-10.0); %Lymphocytes 24.6 % (21.0-51.0); %Monocytes 7.8 % (0.0-10.0); Hemoglobin 14.9 g/dL (12.0-16.0); Mean Corpuscular HGB CONC 32.2 g/dL (32.0-36.0); Mean Corpuscular Hemoglobin 29.5 pg (27.0-31.0); Mean Corpuscular Volume 91.6 fl (81.0-99.0); Mean Platelet Volume 7.4 fL (7.4-10.4); Platelet Count 209 thou/uL (130-400); RBC Distribution Width 13.1 % (11.5-14.5); Red Blood Cell (RBC) Count 5.06 mill/uL (4.20-5.40); White Blood Cell (WBC) Count 8.3 thou/uL (4.8-10.8)
[2017-05-28 15:37] LABS: CKMB 14.5 ng/mL (0-6.6); Troponin I 1.485 ng/mL (< 0.028)
[2017-05-28 16:24] LABS: Bilirubin Negative (Negative); Blood, Urine Negative (Negative); Clarity Clear (Clear); Glucose, Urine (Dipstick) Negative (Negative); Leukocyte Negative (Negative); Nitrite Negative (Negative); Protein, Urine (Dipstick) Negative (Neg-Trace); Specific Gravity, Urine 1.015 (1.005-1.030); Urobilinogen 0.2 mg/dL (0.2-1.0)
--- NOTE | 2017-05-29 07:50 | CT ---
CT BRAIN WITHOUT CONTRAST: Date: 05/28/17 HISTORY: 82-year-old female with stroke alert. Left-sided facial droop, headache. FINDINGS: No evidence of acute infarct, hemorrhage, midline shift, or abnormal extra-axial fluid collections a re seen. The ventricular size is appropriate and the basilar cisterns are patent. The bony calvarium is intact. The visualized paranasal sinuses and mastoid air cells are well aerated. IMPRESSION: No CT evidence of acute intracranial process. POS: [facility]
== END 2017-05-28 16:20 | disposition short-term general hospital (02) ==
LOC: NAV ERS 14:24
DX: I21.4 Non-ST elevation (NSTEMI) myocardial infarction (principal); I10 Essential (primary) hypertension; E11.9 Type 2 diabetes mellitus without complications; R29.810 Facial weakness; E78.5 Hyperlipidemia, unspecified; M19.90 Unspecified osteoarthritis, unspecified site; F41.9 Anxiety disorder, unspecified; J45.909 Unspecified asthma, uncomplicated; Z79.4 Long term (current) use of insulin; Z79.899 Other long term (current) drug therapy; Z79.82 Long term (current) use of aspirin
CPT/HCPCS: 36415; 70450; 71010; 80053; 81003; 82553; 84484; 85025; 85610; 85730; 93005; 94760

== ENCOUNTER 2017-06-01 19:08 | Inpatient (IN) | payer MEDICARE, BC ==
[2017-06-01 19:38] VITALS: BMI 38.9
[2017-06-01] MEDS ORDERED: Ondansetron ODT 4 MG TAB PO PRN (20:43)
[2017-06-01] MEDS ORDERED: Nitroglycerin 0.4 MG TAB (25 Tab Bottle) SL PRN (20:43)
[2017-06-01] MEDS ORDERED: Sodium Chloride 0.9% 1,000 ML IV SCH (20:45)
[2017-06-01] MEDS ORDERED: traZODone HCl 50 MG TAB PO PRN (20:47)
[2017-06-01] MEDS ORDERED: Dextrose 5% in Water 1,000 ML IV PRN (21:10)
[2017-06-01] MEDS ORDERED: Dextrose 50% Abboject 50 ML SYRINGE IVP PRN (21:11)
[2017-06-01] MEDS: Levemir Flexpen 100 UNITS/ML PEN SC SCH (21:25)
[2017-06-01] MEDS: Atorvastatin Calcium 20 MG TAB PO SCH (21:25)
[2017-06-01] MEDS: Gabapentin 300 MG CAP PO SCH (21:25)
[2017-06-01] MEDS: Lisinopril 20 MG TAB PO SCH (21:26)
[2017-06-01] MEDS: Metoprolol Tartrate 25 MG TAB PO SCH (21:26)
[2017-06-01] MEDS: metroNIDAZOLE 500 MG TAB PO SCH (21:27)
[2017-06-01] MEDS: Oxybutynin 5 MG TAB PO SCH (21:27)
[2017-06-01] MEDS: traZODone HCl 50 MG TAB PO PRN (21:28)
[2017-06-01] MEDS: traMADol HCl 50 MG TAB PO PRN (21:28)
[2017-06-02 05:14] LABS: #Basophils 0.1 thou/uL (0.0-0.2); #Eosinphils 0.3 thou/uL (0.0-0.7); #Monocytes 0.7 thou/uL (0.11-0.59); #Neutrophils 4.3 thou/uL (1.40-6.50); %Basophils 0.8 % (0.0-1.0); %Eosinophils 4.6 % (0.0-10.0); %Lymphocytes 26.9 % (21.0-51.0); %Monocytes 9.6 % (0.0-10.0); %Neutrophils 58.2 % (42.0-75.0); Hemoglobin 12.9 g/dL (12.0-16.0); Mean Corpuscular HGB CONC 32.2 g/dL (32.0-36.0); Mean Corpuscular Hemoglobin 29.5 pg (27.0-31.0); Mean Corpuscular Volume 91.7 fl (81.0-99.0); Mean Platelet Volume 7.1 fL (7.4-10.4); Platelet Count 168 thou/uL (130-400); RBC Distribution Width 12.8 % (11.5-14.5); Red Blood Cell (RBC) Count 4.36 mill/uL (4.20-5.40); White Blood Cell (WBC) Count 7.4 thou/uL (4.8-10.8)
[2017-06-02 05:30] LABS: Anion Gap 12 mmol/L (10-20); BUN (Urea Nitrogen) 31 mg/dL (9.8-20.1); Calc. Creatinine Clearance 70 mL/min (70-130); Calcium 9.1 mg/dL (7.8-10.44); Carbon Dioxide 28 mmol/L (23-31); Chloride 105 mmol/L (98-107); Estimated GFR-MDRD 55; Glucose 166 mg/dL (83-110); Potassium 4.3 mmol/L (3.5-5.1); Sodium 141 mmol/L (136-145)
[2017-06-02] MEDS: Amlodipine 5 MG TAB PO SCH (08:56)
[2017-06-02] MEDS: Oxybutynin 5 MG TAB PO SCH ×3 (08:58→20:41)
[2017-06-02] MEDS: Saccharomyces boulardii 250 MG CAP PO SCH (08:58)
[2017-06-02] MEDS: Metoprolol Tartrate 25 MG TAB PO SCH ×2 (08:58→20:41)
[2017-06-02] MEDS: metroNIDAZOLE 500 MG TAB PO SCH ×3 (08:58→20:41)
[2017-06-02] MEDS: Venlafaxine HCl 25 MG TAB PO SCH (08:59)
[2017-06-02] MEDS: Acetaminophen 325 MG TAB PO PRN (10:31)
[2017-06-02] MEDS: Insulin Regular 300 UNITS/3 ML VIAL SC PRN (11:57)
[2017-06-02] MEDS: Insulin Regular 300 UNITS/3 ML VIAL SC SCH (17:20)
[2017-06-02] MEDS: Gabapentin 300 MG CAP PO SCH (20:41)
[2017-06-02] MEDS: Lisinopril 20 MG TAB PO SCH (20:41)
[2017-06-02] MEDS: Atorvastatin Calcium 20 MG TAB PO SCH (20:41)
[2017-06-02] MEDS: Levemir Flexpen 100 UNITS/ML PEN SC SCH (20:42)
[2017-06-02] MEDS: traMADol HCl 50 MG TAB PO PRN (20:49)
[2017-06-02] MEDS: Acetaminophen/Codeine 30-300mg Tablet PO PRN (22:43)
[2017-06-03 05:40] LABS: Anion Gap 9 mmol/L (10-20); BUN (Urea Nitrogen) 18 mg/dL (9.8-20.1); Calc. Creatinine Clearance 89 mL/min (70-130); Calcium 9.4 mg/dL (7.8-10.44); Carbon Dioxide 31 mmol/L (23-31); Chloride 105 mmol/L (98-107); Estimated GFR-MDRD 72; Glucose 122 mg/dL (83-110); Potassium 4.3 mmol/L (3.5-5.1); Sodium 141 mmol/L (136-145)
[2017-06-03] MEDS: Amlodipine 5 MG TAB PO SCH (08:44)
[2017-06-03] MEDS: Venlafaxine HCl 25 MG TAB PO SCH (08:45)
[2017-06-03] MEDS: Saccharomyces boulardii 250 MG CAP PO SCH (08:45)
[2017-06-03] MEDS: metroNIDAZOLE 500 MG TAB PO SCH ×3 (08:45→21:05)
[2017-06-03] MEDS: Metoprolol Tartrate 25 MG TAB PO SCH ×2 (08:45→21:06)
[2017-06-03] MEDS: Oxybutynin 5 MG TAB PO SCH ×3 (08:45→21:05)
[2017-06-03] MEDS: Insulin Regular 300 UNITS/3 ML VIAL SC SCH ×4 (08:50→17:19)
[2017-06-03] MEDS: Acetaminophen 325 MG TAB PO PRN (08:56)
[2017-06-03] MEDS ORDERED: Amlodipine 5 MG TAB PO SCH (09:10)
--- NOTE | 2017-06-03 10:55 | PRG ---
DATE OF SERVICE: 06/03/2017 SUBJECTIVE: The patient feels well with decreasing diarrhea and had no further diarrhea. No nausea or vomiting, no chest pain, shortness of breath. OBJECTIVE: VITAL SIGNS: Blood pressure is up to 188/67, temperature 97, pulse 62, respirations 18. LUNGS: Clear. CARDIAC: Shows regular rhythm. Accu-Cheks 165-273. ASSESSMENT: 1. Uncontrolled hypertension on metoprolol 12.5 twice daily, lisinopril 20 nightly, amlodipine 2.5 daily. We will increase amlodipine to 5 mg daily. Continue to monitor. 2. Clostridium difficile colitis, improving on Flagyl with no further diarrhea and we will continue for a full 7-day course and then discontinue. 3. Uncontrolled diabetes. We will increase Humulin to 15 units before every meal as well as Levemi r 40 units at night.
--- NOTE | 2017-06-03 12:51 | HP ---
HISTORY OF PRESENT ILLNESS: The patient is a very pleasant 82-year-old white female well known to m yself with a long history of poorly controlled diabetes, who has had a recent long admission in the hospital for a fracture of the distal femur requiring hospitalization and fdc care and has finally recovered from that and was doing well at home visiting with her family when she developed e pisodes of dizziness, headache, weakness, found to have elevated blood pressure was also found to ching ve an elevated troponin of 1.485. She has had some transient symptoms of left-sided weakness. Thes e had resolved prior to the emergency room visit. She was found to have no problems with her EKG, b ut was admitted to [facility] for evaluation. She subsequently underwent cardiac catheterization, which showed triple vessel disease. She refused further evaluation and treatment at that time and only wanted medical treatment. She did well since that time with no chest pain or shortness of mela th, but did develop some diarrhea and acute renal failure secondary to Clostridium difficile, was gi saleem IV fluids with improvement in her renal function, but was transferred to the skilled unit for fu rther monitoring of her renal function and her diarrhea. 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 MEDICATIONS AT THIS TIME: Included Humulin N 40 units subcu at bedtime and 15 units before meals, b ut this had been decreased to 5 units before meals at [employer]. She is also on amlodipine 5 daily , Effexor 25 daily, oxybutynin 3 times daily, lisinopril 20 daily, gabapentin 300 nightly, tramadol 50 as needed, aspirin 81 daily. These had been continued, which she also had metoprolol 2.5 mg twic e daily added and Flagyl 500 three times daily added for her Clostridium difficile diarrhea and she was on IV fluids as mentioned above. ALLERGIES: She is allergic to IBUPROFEN causing GI bleeding. FAMILY MEDICAL HISTORY: Negative. SOCIAL HISTORY: She is a , lives alone, nonsmoker, nondrinker. REVIEW OF SYSTEMS: HEENT: She denies any headaches, dizziness, change in vision or hearing, hoarse ness or dysphagia. She had the transient dizziness with initial episode, none since. Pulmonary: S he denies cough, sputum production, pneumonia, asthma or tuberculosis. Cardiovascular: Denies any chest pain during this whole episode, mainly with dizzy and some left-sided weakness. She denies an y palpitations. Gastrointestinal: She did have transient diarrhea in hospital, which was antigen p ositive, toxin negative, but she did have an elevated lactoferrin. Genitourinary: Denies dysuria, hematuria or nocturia. Musculoskeletal: She has chronic pain in her knees, back and hips, but thes e have been stable and she has been ambulating. Neurologic: She has no history of CVA or TIA. She has no history of syncope. PHYSICAL EXAMINATION: GENERAL: Patient is an elderly obese white female in no acute distress, oriented x3 and cooperative . VITAL SIGNS: Showed blood pressure to be 137/63, pulse 58, temperature 98, respirations 18 and O2 s aturation is 97%. HEENT: Pupils are equal, round and reactive to light and accommodation. Sclerae are anicteric. Co njunctivae pale. Oral mucous membranes well hydrated. NECK: Supple. No nodes or masses. JVP is not elevated. LUNGS: Clear to auscultation and percussion. CARDIAC: Showed regular rhythm, slow. No gallops or murmurs. ABDOMEN: Obese and nontender. No masses or organomegaly. SKIN/EXTREMITIES: Display no edema, clubbing or cyanosis. There is crepitus and stiffness in both knees, shoulders and hips. NEUROLOGIC: Cranial nerves intact. Deep tendon reflexes 2+ and equal, absent Babinskis. LABORATORY DATA: Shows sodium of 141, potassium 4.3, chloride 105, bicarb 28, BUN 31, creatinine 0. 98, glucose 166 and calcium 9.1. White count 6900, hematocrit 36 and hemoglobin 11. ASSESSMENT AND PLAN: An 82-year-old white female with a history of poorly controlled diabetes who h as been found to have; 1. Non-ST segment elevation myocardial infarction with subsequent triple vessel disease found on co ronary arteriogram. Selected medical treatment has been continued on lisinopril, metoprolol, pravas tatin and aspirin. She feels well at this time. No chest pain or shortness of breath. 2. History of lactoferrin-positive diarrhea with Clostridium difficile antigen positive, toxin nega tive who has been started on Flagyl with no further diarrhea. 3. Uncontrolled diabetes on decreased Humulin R to 55 units before meals and will require titration . PLAN: Monitor Accu-Cheks during the day. Monitor diarrhea. Continue Flagyl. Continue IV fluids u ntil tomorrow and possibly discontinue tomorrow. Ambulate with therapy. Monitor closely for signs and symptoms of angina and possibly discharge in 2-3 days.
[2017-06-03 18:49] LABS: Bilirubin Small (Negative); Blood, Urine Small (Negative); Glucose, Urine (Dipstick) Negative (Negative); Leukocyte Small (Negative); Nitrite Positive (Negative); Protein, Urine (Dipstick) 100 mg/dL (Neg-Trace); Urobilinogen 0.2 mg/dL (0.2-1.0); pH, Urine 5.5 (5.0-9.0)
[2017-06-03 18:57] LABS: Clarity Cloudy (Clear)
[2017-06-03 18:58] LABS: Specific Gravity, Urine 1.031 (1.002-1.036)
[2017-06-03 19:00] LABS: Bacteria/HPF 2+ HPF (None Seen); Squamous Epithelial 0-3 HPF (0-3)
[2017-06-03] MEDS: Levemir Flexpen 100 UNITS/ML PEN SC SCH (21:04)
[2017-06-03] MEDS: Lisinopril 20 MG TAB PO SCH (21:05)
[2017-06-03] MEDS: traMADol HCl 50 MG TAB PO PRN (21:05)
[2017-06-03] MEDS: Gabapentin 300 MG CAP PO SCH (21:06)
[2017-06-03] MEDS: Atorvastatin Calcium 20 MG TAB PO SCH (21:07)
[2017-06-04] MEDS: Saccharomyces boulardii 250 MG CAP PO SCH (08:52)
[2017-06-04] MEDS: Venlafaxine HCl 25 MG TAB PO SCH (08:52)
[2017-06-04] MEDS: metroNIDAZOLE 500 MG TAB PO SCH ×3 (08:52→21:58)
[2017-06-04] MEDS: Oxybutynin 5 MG TAB PO SCH ×3 (08:53→21:59)
[2017-06-04] MEDS: Metoprolol Tartrate 25 MG TAB PO SCH ×2 (08:53→21:58)
[2017-06-04] MEDS: Insulin Regular 300 UNITS/3 ML VIAL SC SCH ×3 (08:54→16:51)
[2017-06-04] MEDS: Acetaminophen 325 MG TAB PO PRN ×2 (08:58→17:45)
[2017-06-04] MEDS: Nitrofurantoin Macrocrystal 50 MG CAP PO SCH ×3 (12:57→21:59)
[2017-06-04] MEDS: Insulin Regular 300 UNITS/3 ML VIAL SC PRN (16:52)
[2017-06-04] MEDS ORDERED: Artificial Tear Sol 15 ML BOT EA EYE PRN (17:43)
--- NOTE | 2017-06-04 17:57 | PRG ---
DATE OF SERVICE: 06/04/2017 SUBJECTIVE: The patient feels well, sitting up in chair, complains of some neck spasms and dry eyes with allergies, but is having no shortness of breath or chest pain. She is having increased freque ncy and some mild dysuria. OBJECTIVE: VITAL SIGNS: Shows her blood pressure was elevated today to 197/82, pulse is 63, O2 saturation is 9 5%. LUNGS: Clear. CARDIAC: Examination shows regular rhythm. NECK: Shows some spasms in the neck. LABORATORY DATA: Urinalysis did show greater than 50 white cells, positive nitrite. Culture is pen ding. Accu-Cheks were somewhat decreased last night on increased premeal lispro and will decrease d ose today. As she was previously on 15 units before meals, will be started on 10 units before meals . ASSESSMENT: 1. Labile diabetes. We will decrease lispro at 10 units before meals and continue Levemir 40 units at night 2. Uncontrolled hypertension, on lisinopril 20 nightly, metoprolol 12.5 twice daily, amlodipine 5 d aily, will increase amlodipine to 10 mg daily. 3. Urinary tract infection with cultures pending. We will start on treatment with Macrodantin 50 f our times daily. 4. Dry eyes. We will treat with Artificial Tears. 5. Muscle spasms. We will treat with hot packs to the neck.
[2017-06-04] MEDS: Levemir Flexpen 100 UNITS/ML PEN SC SCH (21:57)
[2017-06-04] MEDS: Lisinopril 20 MG TAB PO SCH (21:58)
[2017-06-04] MEDS: Atorvastatin Calcium 20 MG TAB PO SCH (21:59)
[2017-06-04] MEDS: Gabapentin 300 MG CAP PO SCH (21:59)
[2017-06-04] MEDS: traMADol HCl 50 MG TAB PO PRN (21:59)
[2017-06-05] MEDS: Acetaminophen 325 MG TAB PO PRN (05:42)
[2017-06-05] MEDS: Saccharomyces boulardii 250 MG CAP PO SCH (08:35)
[2017-06-05] MEDS: Amlodipine 10 MG TAB PO SCH (08:36)
[2017-06-05] MEDS: Metoprolol Tartrate 25 MG TAB PO SCH ×2 (08:36→20:45)
[2017-06-05] MEDS: Nitrofurantoin Macrocrystal 50 MG CAP PO SCH ×4 (08:37→20:44)
[2017-06-05] MEDS: Oxybutynin 5 MG TAB PO SCH ×3 (08:37→20:44)
[2017-06-05] MEDS: metroNIDAZOLE 500 MG TAB PO SCH ×3 (08:37→20:45)
[2017-06-05] MEDS: Insulin Regular 300 UNITS/3 ML VIAL SC SCH ×3 (08:37→17:00)
[2017-06-05] MEDS: Venlafaxine HCl 25 MG TAB PO SCH (08:37)
[2017-06-05] MEDS ORDERED: metroNIDAZOLE 500 MG TAB ONE (13:36)
[2017-06-05] MEDS ORDERED: Sodium Chloride 0.9% 10 ML ONE (13:38)
[2017-06-05] MEDS ORDERED: Oxybutynin 5 MG TAB ONE (13:53)
[2017-06-05] MEDS ORDERED: Nitrofurantoin Macrocrystal 50 MG CAP ONE (13:54)
[2017-06-05] MEDS: Insulin Regular 300 UNITS/3 ML VIAL SC PRN (16:59)
[2017-06-05] MEDS: Levemir Flexpen 100 UNITS/ML PEN SC SCH (20:41)
[2017-06-05] MEDS: traZODone HCl 50 MG TAB PO PRN (20:43)
[2017-06-05] MEDS: traMADol HCl 50 MG TAB PO PRN (20:43)
[2017-06-05] MEDS: Lisinopril 20 MG TAB PO SCH (20:44)
[2017-06-05] MEDS: Gabapentin 300 MG CAP PO SCH (20:44)
[2017-06-05] MEDS: Atorvastatin Calcium 20 MG TAB PO SCH (20:45)
--- NOTE | 2017-06-06 06:52 | PRG ---
DATE OF SERVICE: 06/06/2017 SUBJECTIVE: The patient states she is not sleeping well, but having no other complaints of pain, sh ortness of breath, palpitations, nausea and vomiting. OBJECTIVE: VITAL SIGNS: Blood pressure is still elevated to 171/73 this morning, but is improved from yesterda y, pulse 60, temperature 97, respirations 16, O2 sats 95%. Accu-Cheks ranged from 154 last night to 72 this morning on decreased dose of insulin. LUNGS: Lungs are clear. CARDIAC: Cardiac examination shows regular rhythm. ABDOMEN: Abdomen is soft and nontender. SKIN AND EXTREMITIES: Skin and extremities show some spasms and tenderness of the neck muscles. ASSESSMENT: 1. Labile hypertension, improved, but still not to goal, brittle diabetes which appears to be close to goal on decreased dose of regular insulin with meals. 2. Urinary tract infection, resolving with a urinary culture showing mixed culture. PLAN: 1. Stressed need for Desyrel for sleep at night and may need to add temazepam. 2. Continue to monitor blood pressure and if not improved tomorrow morning may need to add clonidin e at night to help with sleep and blood pressure. She is on maximum dose of amlodipine, metoprolol, secondary to bradycardia and lisinopril.
[2017-06-06] MEDS: Insulin Regular 300 UNITS/3 ML VIAL SC SCH ×3 (08:05→17:25)
[2017-06-06] MEDS: Metoprolol Tartrate 25 MG TAB PO SCH ×2 (08:37→21:12)
[2017-06-06] MEDS: Saccharomyces boulardii 250 MG CAP PO SCH (08:37)
[2017-06-06] MEDS: Amlodipine 10 MG TAB PO SCH (08:38)
[2017-06-06] MEDS: Oxybutynin 5 MG TAB PO SCH ×3 (08:38→21:12)
[2017-06-06] MEDS: Nitrofurantoin Macrocrystal 50 MG CAP PO SCH ×4 (08:40→21:11)
[2017-06-06] MEDS: Venlafaxine HCl 25 MG TAB PO SCH (08:40)
[2017-06-06] MEDS: metroNIDAZOLE 500 MG TAB PO SCH ×3 (08:41→21:12)
[2017-06-06] MEDS: Gabapentin 300 MG CAP PO SCH (21:12)
[2017-06-06] MEDS: Lisinopril 20 MG TAB PO SCH (21:12)
[2017-06-06] MEDS: Atorvastatin Calcium 20 MG TAB PO SCH (21:12)
[2017-06-06] MEDS: traMADol HCl 50 MG TAB PO PRN (21:19)
[2017-06-06] MEDS: Levemir Flexpen 100 UNITS/ML PEN SC SCH (21:23)
[2017-06-06] MEDS: traZODone HCl 50 MG TAB PO PRN (22:55)
[2017-06-07] MEDS: Insulin Regular 300 UNITS/3 ML VIAL SC SCH ×3 (08:24→16:47)
[2017-06-07] MEDS: metroNIDAZOLE 500 MG TAB PO SCH ×3 (08:25→20:29)
[2017-06-07] MEDS: Metoprolol Tartrate 25 MG TAB PO SCH ×2 (08:25→20:27)
[2017-06-07] MEDS: Amlodipine 10 MG TAB PO SCH (08:25)
[2017-06-07] MEDS: Oxybutynin 5 MG TAB PO SCH ×3 (08:26→20:29)
[2017-06-07] MEDS: Nitrofurantoin Macrocrystal 50 MG CAP PO SCH ×4 (08:26→20:29)
[2017-06-07] MEDS: Saccharomyces boulardii 250 MG CAP PO SCH (08:26)
[2017-06-07] MEDS: Venlafaxine HCl 25 MG TAB PO SCH (08:26)
[2017-06-07] MEDS: Acetaminophen 325 MG TAB PO PRN ×2 (10:00→22:01)
[2017-06-07] MEDS: Gabapentin 300 MG CAP PO SCH (20:29)
[2017-06-07] MEDS: Lisinopril 20 MG TAB PO SCH (20:29)
[2017-06-07] MEDS: traZODone HCl 50 MG TAB PO PRN (20:31)
[2017-06-07] MEDS: Insulin Regular 300 UNITS/3 ML VIAL SC PRN (20:31)
[2017-06-07] MEDS: Levemir Flexpen 100 UNITS/ML PEN SC SCH (20:32)
[2017-06-07] MEDS: Atorvastatin Calcium 20 MG TAB PO SCH (20:35)
[2017-06-08] MEDS: Insulin Regular 300 UNITS/3 ML VIAL SC SCH ×3 (08:56→16:54)
[2017-06-08] MEDS: Acetaminophen 325 MG TAB PO PRN ×2 (08:56→21:29)
[2017-06-08] MEDS: Amlodipine 10 MG TAB PO SCH (08:57)
[2017-06-08] MEDS: metroNIDAZOLE 500 MG TAB PO SCH ×3 (08:57→20:39)
[2017-06-08] MEDS: Venlafaxine HCl 25 MG TAB PO SCH (08:57)
[2017-06-08] MEDS: Saccharomyces boulardii 250 MG CAP PO SCH (08:57)
[2017-06-08] MEDS: Oxybutynin 5 MG TAB PO SCH ×3 (08:57→20:39)
[2017-06-08] MEDS: Nitrofurantoin Macrocrystal 50 MG CAP PO SCH ×4 (08:57→20:39)
[2017-06-08] MEDS: Metoprolol Tartrate 25 MG TAB PO SCH ×2 (08:59→20:39)
--- NOTE | 2017-06-08 09:50 | PRG ---
DATE OF SERVICE: 06/08/2017 SUBJECTIVE: The patient is sitting up in the chair. She states that she feels somewhat congested, had some fitful sleep last night, but has no shortness of breath or chest pain or headache. She did state that yesterday she did have an episode of bradycardia and hypotension with therapy, but has r esolved now. PHYSICAL EXAMINATION: VITAL SIGNS: Her blood pressure is today 159/71, pulse is 74, respirations 18, O2 sats 96%. Afebri le. LUNGS: Lungs are clear. CARDIAC: Cardiac examination shows regular rhythm. ABDOMEN: Abdomen is soft and nontender. The patient is walking 40-60 feet with therapy. ASSESSMENT: 1. Labile hypertension, improved with 1 episode of bradycardia and hypotension yesterday, so will g et an EKG. 2. Deconditioning, improving greatly back to baseline. We will plan on discharge home in 2 days with [facility].
[2017-06-08] MEDS: Gabapentin 300 MG CAP PO SCH (20:39)
[2017-06-08] MEDS: Lisinopril 20 MG TAB PO SCH (20:40)
[2017-06-08] MEDS: Atorvastatin Calcium 20 MG TAB PO SCH (20:42)
[2017-06-08] MEDS: Levemir Flexpen 100 UNITS/ML PEN SC SCH (20:43)
[2017-06-08] MEDS: traMADol HCl 50 MG TAB PO PRN (21:28)
[2017-06-08] MEDS: traZODone HCl 50 MG TAB PO PRN (21:29)
[2017-06-09] MEDS: Acetaminophen/Codeine 30-300mg Tablet PO PRN (00:57)
[2017-06-09] MEDS: Acetaminophen 325 MG TAB PO PRN ×2 (08:30→21:04)
[2017-06-09] MEDS: metroNIDAZOLE 500 MG TAB PO SCH ×3 (08:31→21:06)
[2017-06-09] MEDS: Metoprolol Tartrate 25 MG TAB PO SCH ×2 (08:31→21:05)
[2017-06-09] MEDS: Nitrofurantoin Macrocrystal 50 MG CAP PO SCH ×4 (08:31→21:06)
[2017-06-09] MEDS: Saccharomyces boulardii 250 MG CAP PO SCH (08:31)
[2017-06-09] MEDS: Amlodipine 10 MG TAB PO SCH (08:31)
[2017-06-09] MEDS: Oxybutynin 5 MG TAB PO SCH ×3 (08:31→21:06)
[2017-06-09] MEDS: Venlafaxine HCl 25 MG TAB PO SCH (08:31)
[2017-06-09] MEDS: Insulin Regular 300 UNITS/3 ML VIAL SC SCH ×3 (08:32→17:22)
[2017-06-09] MEDS: traMADol HCl 50 MG TAB PO PRN ×2 (14:04→21:04)
--- NOTE | 2017-06-09 15:24 | PRG ---
MEDICAL PROGRESS NOTE DATE OF SERVICE: 06/09/2017 SUBJECTIVE: The patient feels well, up in the bathroom, taking shower, doing ADLs. OBJECTIVE: VITAL SIGNS: Temperature is 98, pulse 60, respirations 18, O2 sats 93% on room air and blood pressu re 166/70. LABORATORY DATA: Accu-Cheks ranged from 83 in the morning to 326 in the afternoon secondary to labi le diabetes and diabetic noncompliance. Blood pressure has been stable in the range of 124-160. ASSESSMENT: 1. Labile hypertension with good control today. 2. Labile diabetes, fair control. 3. Improving deconditioning. PLAN: Continue medication. Monitor for orthostasis. Apply support hose.
[2017-06-09] MEDS: Atorvastatin Calcium 20 MG TAB PO SCH (21:06)
[2017-06-09] MEDS: Gabapentin 300 MG CAP PO SCH (21:06)
[2017-06-09] MEDS: Lisinopril 20 MG TAB PO SCH (21:06)
[2017-06-09] MEDS: traZODone HCl 50 MG TAB PO PRN (21:07)
[2017-06-09] MEDS: Levemir Flexpen 100 UNITS/ML PEN SC SCH (21:08)
[2017-06-10] MEDS: Acetaminophen 325 MG TAB PO PRN ×3 (06:03→20:43)
[2017-06-10] MEDS: Insulin Regular 300 UNITS/3 ML VIAL SC SCH ×3 (09:08→17:58)
[2017-06-10] MEDS: Metoprolol Tartrate 25 MG TAB PO SCH ×2 (09:10→20:44)
[2017-06-10] MEDS: Amlodipine 10 MG TAB PO SCH (09:10)
[2017-06-10] MEDS: Oxybutynin 5 MG TAB PO SCH ×3 (09:10→20:43)
[2017-06-10] MEDS: Nitrofurantoin Macrocrystal 50 MG CAP PO SCH ×4 (09:11→20:43)
[2017-06-10] MEDS: metroNIDAZOLE 500 MG TAB PO SCH ×3 (09:11→20:43)
[2017-06-10] MEDS: Venlafaxine HCl 25 MG TAB PO SCH (09:11)
[2017-06-10] MEDS: Saccharomyces boulardii 250 MG CAP PO SCH (09:11)
[2017-06-10] MEDS: Insulin Regular 300 UNITS/3 ML VIAL SC PRN (12:34)
--- NOTE | 2017-06-10 13:04 | PRG ---
DATE OF SERVICE: 06/10/2017 SUBJECTIVE: The patient feels well, sitting up, visiting with friends with no complaints of chest p ain, shortness of breath or weakness. Slept well last night. OBJECTIVE: VITAL SIGNS: Shows temperature is 98, pulse 54, respirations 18, O2 sats 98%, blood pressure 166/70 . Accu-Cheks are fairly stable ranged from 83-205 on diabetic 1500 calorie heart healthy diet. LUNGS: Clear. CARDIAC EXAMINATION: Shows regular rhythm. ABDOMEN: Soft and nontender. SKIN and EXTREMITIES: Display no edema, clubbing, cyanosis. ASSESSMENT: 1. Resolving nna-WA-gdbwtrhkoi infarction. 2. Stable hypertension. 3. Labile diabetes, improved, controlled today. 4. Improving deconditioning. PLAN: Continue medications as ordered. Discharged home tomorrow to follow up with home health. Fo llow up with myself in 1-2 weeks. Continue to monitor for signs of angina.
[2017-06-10] MEDS: Acetaminophen/Codeine 30-300mg Tablet PO PRN (14:56)
[2017-06-10] MEDS: traZODone HCl 50 MG TAB PO PRN (20:42)
[2017-06-10] MEDS: Gabapentin 300 MG CAP PO SCH (20:43)
[2017-06-10] MEDS: Atorvastatin Calcium 20 MG TAB PO SCH (20:43)
[2017-06-10] MEDS: Lisinopril 20 MG TAB PO SCH (20:43)
[2017-06-10] MEDS: traMADol HCl 50 MG TAB PO PRN (20:44)
[2017-06-10] MEDS: Levemir Flexpen 100 UNITS/ML PEN SC SCH (20:46)
[2017-06-11 08:41] VITALS: TEMP 97.7
[2017-06-11] MEDS: traMADol HCl 50 MG TAB PO PRN (08:46)
[2017-06-11] MEDS: Metoprolol Tartrate 25 MG TAB PO SCH (08:47)
[2017-06-11] MEDS: Oxybutynin 5 MG TAB PO SCH ×2 (08:47→15:05)
[2017-06-11] MEDS: Amlodipine 10 MG TAB PO SCH (08:47)
[2017-06-11] MEDS: Venlafaxine HCl 25 MG TAB PO SCH (08:47)
[2017-06-11] MEDS: metroNIDAZOLE 500 MG TAB PO SCH ×2 (08:47→15:05)
[2017-06-11] MEDS: Saccharomyces boulardii 250 MG CAP PO SCH (08:47)
[2017-06-11] MEDS: Insulin Regular 300 UNITS/3 ML VIAL SC SCH ×2 (08:48→12:35)
[2017-06-11] MEDS: Nitrofurantoin Macrocrystal 50 MG CAP PO SCH ×2 (08:48→12:34)
[2017-06-11 10:50] VITALS: BP 130/58
--- NOTE | 2017-06-11 11:26 | DIS ---
DATE OF ADMISSION: To the skilled unit, 06/03/2017 DATE OF DISCHARGE: Home, 06/11/2017 FINAL DIAGNOSES: 1. Recent acute hypertensive emergency, resolved. 2. Non-ST myocardial infarction with cardiac catheterization showing triple-vessel disease, but wit h no further symptoms and with election for medical treatment. 3. Clostridium difficile diarrhea with acute renal failure, resolved with IV fluids and oral Flagyl . 4. Labile diabetes with fair control. 5. Significant degenerative joint disease, status post bilateral total knee, right total hip, bilat eral shoulder replacement with stable symptoms of pain and increased ambulation. 6. Significant deconditioning. HOSPITAL COURSE: The patient is a very pleasant 82-year-old white female, well known to myself, wit h a long history of poorly controlled diabetes and significant degenerative joint disease, who prese nted to [facility] with dizziness, headache, weakness, elevated blood pressure, and was found to h ave an elevated troponin of 1.485. She did not have any symptoms of chest pain, had transient left- sided weakness that resolved in the emergency room. She subsequently underwent evaluation, which sh owed on cardiac catheterization triple-vessel disease, but she was elected to be treated medically a t her request and Cardiology's request. She had no further symptoms of chest pain, shortness of genet ath, or palpitations. She did develop a complication of Clostridium difficile colitis with subseque nt dehydration, acute renal failure, which has resolved. She was admitted to the skilled unit for s trengthening and conditioning, because of her underlying degenerative joint disease has limited her ambulation and she has been felt to be unstable. She was also found to have a urinary tract infecti on and was treated for this in the hospital with complete resolution. On admission, her vital signs showed a blood pressure 141/62, and on discharge, it has been somewhat labile ranging from 120/59-1 66/70, pulse has been bradycardic ranging from 54-60, respirations 18. She has had some problem wit h labile blood pressures secondary to agitation at times, but appears to have stabilized. Her Accu- Cheks have remained fairly stable; in fact, they have required a decrease in her dose of her premeal lispro from 15 to 5 units 3 times daily and her most recent Accu-Cheks have ranged from 210-47, but I feel this was due to a nocturnal sliding scale dose. She has felt well and has accomplished her goals with therapy. Most recent laboratories have shown also that her BUN is 18, creatinine 0.78, s odium 141, potassium 4.3, hematocrit of 40, hemoglobin 12.9. She will therefore be discharged home on her medications of Lantus 40 units at night, Novolin R 5 units before meals, nitroglycerin sublin gual as needed, amlodipine 10 daily, aspirin 81 daily, atorvastatin 20 daily, gabapentin 300 nightly , lisinopril 20 nightly, metoprolol 12.5 twice daily, oxybutynin 5 mg 3 times daily, venlafaxine 25 daily, tramadol as needed, and Tylenol #3 as needed. She will follow up with myself in 1-2 weeks. At discharge, her lungs were clear. Cardiac examination showed regular rhythm. Abdomen was soft an d nontender.
== END 2017-06-11 16:35 | disposition home health service (06) | DRG 281 ==
LOC: NAV ACUTE 19:08
PROVIDERS: ADMIT Internal Medicine; ATTEND Internal Medicine
DX: I21.4 Non-ST elevation (NSTEMI) myocardial infarction (principal); N39.0 Urinary tract infection, site not specified; N17.9 Acute kidney failure, unspecified; A04.71 Enterocolitis due to Clostridium difficile, recurrent; I95.9 Hypotension, unspecified; E11.9 Type 2 diabetes mellitus without complications; R00.1 Bradycardia, unspecified; E86.0 Dehydration; I16.1 Hypertensive emergency; I25.10 Atherosclerotic heart disease of native coronary artery without angina pectoris; I10 Essential (primary) hypertension; Z96.653 Presence of artificial knee joint, bilateral; Z96.612 Presence of left artificial shoulder joint; Z96.611 Presence of right artificial shoulder joint; Z96.641 Presence of right artificial hip joint; Z87.81 Personal history of (healed) traumatic fracture; H04.129 Dry eye syndrome of unspecified lacrimal gland; R25.2 Cramp and spasm; M19.90 Unspecified osteoarthritis, unspecified site; Z88.8 Allergy status to other drugs, medicaments and biological substances
CPT/HCPCS: 36415; 36416; 80048; 81001; 85025; 87086; A4216; G8978-GP-CL; G8979-GP-CI; J1815

== ENCOUNTER 2017-07-05 08:04 | Outpatient (CLI) | payer MEDICARE, BC ==
[2017-07-05 08:22] LABS: Bilirubin Small (Negative); Blood, Urine Large (Negative); Clarity Cloudy (Clear); Glucose, Urine (Dipstick) Negative (Negative); Leukocyte Small (Negative); Nitrite Negative (Negative); Protein, Urine (Dipstick) > or equal to 300 mg/dL (Neg-Trace); Specific Gravity, Urine 1.025 (1.005-1.030); Urobilinogen 0.2 mg/dL (0.2-1.0); pH, Urine 5.5 (5.0-9.0)
[2017-07-05 08:38] LABS: Bacteria/HPF 2+ HPF (None Seen); RBC/HPF 21-50 HPF (0-3)
[2017-07-05 08:39] LABS: Crystals/HPF 1+ AMORPH URATES HPF (Negative); Other Microscopic Description NO
== END 2017-07-05 08:05 | disposition home or self-care (01) ==
LOC: NAV LABSP 08:04
PROVIDERS: ATTEND Internal Medicine
DX: N39.0 Urinary tract infection, site not specified (principal)
CPT/HCPCS: 81001; 87077; 87086; 87186